=== PATIENT | female | born 1995 | race Caucasian/White ===

== ENCOUNTER 2022-04-18 00:48 | Day surgery (SDC) | payer BC, SELFPAY ==
[2022-04-11 14:40] VITALS: BMI 39.1
--- NOTE | 2022-04-11 14:49 | PC.NURSE ---
Report to the Outpatient Waiting Room, entrance under the green pavilion located off [facility], at time 1000 on date 04/18/22. OR Time: 1200. Time changes happen often and if your time is changed the preop area will call you the afternoon before. - You and your visitor will be asked to self-screen and do not enter if you have any COVID symptoms. - Only one visitor and NO children visitors are allowed at this time. - The patient visitor is requested to leave or wait in car when not with patient due to restrictions. - A mask is required within the hospital. Patients may have clear liquids (water, carbonated beverages, clear teas, apple juice) until 3 hours prior to surgery with a maximum of 20 ounces. - No food from midnight until time of surgery Take the following medications with a SIP of water the morning of surgery: N/A Medications to discontinue per physician: N/A Date to take last dose: N/A Please no make-up, nail arabic, hairspray, perfume, deodorant, or body powder the day of surgery. No jewelry (including any body piercings) or valuables the day of surgery, leave them at home. Please take a shower or bath the night before, or the morning of, surgery with an antibacterial soap. Wear comfortable, loose fitting clothing. - Jewelry must be removed prior to entering the operating room. Rings and piercings that are not removed may be cut off. - The hospital will not accept responsibility for valuables. - Please leave all valuables, including medications, at home the day of surgery. If you are going home after surgery, a licensed combine driver must drive you home. - NO public transportation without another adult. - We recommend that an adult stay with you for 24 hours following discharge. - We also recommend that you do not drive, make important decision, drink alcoholic beverages, or take any drugs that were not prescribed by your health care provider for at least 24 hours after your discharge time. Follow any additional instructions given to you from your surgeon. If you or anyone in your household have experienced Covid symptoms in the past week, please notify your surgeon or the nurse liaison at the phone number below for possible testing. Telephone instructions given to JAVIER ROSAS and asked if any additional questions and then verbalized understanding. Patient advised to call surgeon office or pre surgery nurse liaison [phone] if any additional questions.
--- NOTE | 2022-04-17 20:11 | PM.IMHP ---
H&P: HPI History of Present Illness Date/Time: 04/17/22 20:11 Chief Complaint: desires sterlization Narrative: Valerie is a 27yo G0, who presents for scheduled surgery for sterilization. She has a normal pap smear 02/2020. She has a Paragard IUD in place and was having AUB; TSH was elevated and her levothyroxine was increased to 100mcg daily and the AUB resolved. But she is tired of having the IUD and reports that the IUD overall has made her cycles heavier and more painful. She has never wanted children and reports she has been asking for a tubal since she was 19yo; would like to proceed with IUD removal and laparoscopic salpingectomy; understands it is permanent (her also does not want children). Review of Systems Review of Systems: All systems reviewed & are unremarkable except as noted in HPI and below (HPI) [facility] Past Medical History Medical History Thyroid disease Social History Social History Smoking status: Never smoker Alcohol intake: current Alcohol use details: SOCIAL - 2/MONTH Substance use: never Substance use type: does not use Gender identity (if verbalized by the patient): Female Sexual Orientation (if Verbalized by the Patient): Straight or Heterosexual Spiritual care concerns: No Meds Home Medications and Allergies Home Medications Medication Instructions Recorded Confirmed Type levothyroxine 100 mcg capsule 100 mcg PO DAILY 02/25/22 04/11/22 History Allergies Allergy/AdvReac Type Severity Reaction Status Date / Time amoxicillin Allergy Hives Verified 04/11/22 14:39 azithromycin Allergy Hives Verified 04/11/22 14:39 clindamycin Allergy Hives Verified 04/11/22 14:39 Exam Const: General: cooperative, comfortable and no acute distress Nutritional Appearance: obese Resp: Effort & Inspection: normal respiratory effort Cardio: Rate: regular rate GI: Inspection: normal to inspection GI Palp: No abdominal tenderness and Yes Soft to palpation : Other: deferred to OR Skin: General skin exam: normal color Neuro: General: patient oriented x3 Psych: Appearance: grossly normal Affect: normal affect Attitude: cooperative Assessment and Plan Assessment and plan (1) Encounter for sterilization: Code(s): Z30.2 - Encounter for sterilization Status: Acute (2) IUD (intrauterine device) in place: Code(s): Z97.5 - Presence of (intrauterine) contraceptive device Status: Acute Plan - All control options discussed in detail and also discussed risks/benefits of sterilization and pt states understanding and understands that this is permanent sterilization; only way to conceive would be through IVF (which is very expensive). - Proceed with laparoscopic bilateral salpingectomy and IUD removal - Risks and benefits of surgery have been discussed
[2022-04-18] VITALS (9 sets, daily range): BP systolic 87–121; BP diastolic 48–71; PULSE 55–77; RESP 15–20; TEMP 36.6–36.7; O2SAT 97–100
--- NOTE | 2022-04-18 07:03 | WPDHPUPDATE1 ---
History and Physical Update Update Date/Time: 04/18/22 07:03 History and Physical has been reviewed, including an updated exam of the patient. There are NO changes in the patient's condition. Risks, benefits, and alternatives have been discussed and questions answered. Patient agrees to proceed with procedure.
[2022-04-18] MEDS: ACETAMINOPHEN 500 MG TABLET 1000 MG PO (10:16)
[2022-04-18] MEDS: KETOROLAC 15 MG/ML VIAL (*BKC) IV PUSH (10:19)
[2022-04-18] MEDS: LACTATED RINGERS 1,000 ML 30 ML IV CONT ×2 (10:28→13:54)
--- NOTE | 2022-04-18 10:44 | WPDANESEPPF ---
Anes - Initial Pre Proc Eval Procedure: Operation Date: 04/18/22 12:00 Proposed Procedures p Bilateral Laparoscopic Salpingectomy - Shasta Stone MD Date/Time: 04/18/22 10:44 Surgeon: Shasta Stone MD Pre Op Diagnosis: Desire Sterilization Patient Data Age: 27 Gender: F Height: 1.57 m Weight: 96 kg Last Vital Signs Temp 36.6 C 04/18/22 10:33 Pulse 65 04/18/22 10:33 Resp 16 04/18/22 10:33 BP 121/58 L 04/18/22 10:33 Pulse Ox 100 04/18/22 10:33 O2 Del Method Room Air 04/18/22 10:33 Allergies Allergy/AdvReac Type Severity Reaction Status Date / Time amoxicillin Allergy Hives Verified 04/18/22 10:32 azithromycin Allergy Hives Verified 04/18/22 10:32 clindamycin Allergy Hives Verified 04/18/22 10:32 Home Medications Medication Instructions Recorded Confirmed Type levothyroxine 100 mcg capsule 100 mcg PO DAILY 02/25/22 04/18/22 History Patient hx anesthesia problems: none Family hx anesthesia problems: none Results Review: All pre-operative results and documents have been reviewed as part of the pre-operative evaluation. [facility] Past Medical History Medical History Hypothyroid Thyroid disease Social History Social History Smoking status: Never smoker Alcohol intake: current Alcohol use details: SOCIAL - 2/MONTH Substance use: never Substance use type: does not use Living arrangements: with family Gender identity (if verbalized by the patient): Female Sexual Orientation (if Verbalized by the Patient): Straight or Heterosexual Spiritual care concerns: No Anes - Eval Final PreProcedure Day of Procedure 04/18/22 10:44 Patient weight: obese Heart: regular rate and rhythm Lungs: decreased breath sounds Airway: Mallampati scale class II (upper veneers) Neurological: alert and oriented Last oral intake: >/= 8 hours ASA classification: II Emergent: no Anesthetic plan: proceed Anesthesia type and monitoring: general ETT and standard monitoring Results Review: All pre-operative results and documents have been reviewed as part of the pre-operative evaluation. Informed Consent: The patient's anesthetic plan and its attendant risks and benefits were discussed with the patient/family/POA. Questions were solicited and answers provided to the satisfaction of the patient/family/POA.
[2022-04-18] MEDS: BUPIVACAINE/EPINEPHRINE 0.25% 50 ML VIAL 30 ML INFILTRATE (13:18)
--- NOTE | 2022-04-18 13:52 | W.PM.PROC2 ---
Procedure Note - Detailed Date of Procedure 04/18/22 Pre-op Diagnosis Desire Sterilization IUD removal Post-op Diagnosis Same Procedure Performed Bilateral laparoscopic salpingectomy and IUD removal Surgeon Shasta Stone MD [employer] Desirae Findings IUD in situ; short strings, removed without issue and discarded. Uterus sounded to 7cm. On entry into the abdomen; ~50cc of old hemoperitoneum noted (dark blood that was coagulated). No source of bleeding was identified but no active bleeding was noted. Normal uterus and bilateral fallopian tubes and ovaries. Bilateral salpingectomy performed w/o issue; good hemostasis at end of case. Normal appearing appendix, liver, falciform ligament visualized. Description of Procedure Valerie was taken to the operating room where she was placed under general endotracheal anesthesia without complications. She was then prepped and draped in the usual sterile fashion in the dorsal lithotomy position with her legs in low Monroe stirrups and her arms tucked at her side with a strap over her chest. A time-out was performed and no preoperative antibiotics were indicated. My attention was turned down below where her bladder was drained via straight catheterization. A bivalve speculum was then placed within the vagina where the cervix was easily identified. The Paragard strings were short but grasped with a ring forceps and the IUD was removed without issue. The anterior lip of the cervix was grasped with a single-tooth tenaculum, the uterus was sounded, the cervix was serially dilated, and a diagnostic uterine manipulator was placed without complications. My gloves were changed and my attention was turned to her abdomen. An umbilical incision was made, and a 5 mm trocar was placed under direct visualization without complications. Once intra-abdominal placement was confirmed the abdomen was insufflated with carbon dioxide gas. She was then placed in Trendelenburg and two additional 5 mm ports were placed in the left and right lower quadrants under direct visualization without complications. The above findings were noted. The left fallopian tube was then elevated and the mesosalpinx was serially clamped, coagulated, transected using the LigaSure device until the proximal end of the fallopian tube was reached. The proximal end of the fallopian tube was cross clamped, coagulated and transected. The tube was then removed from the abdomen. The same procedure was then performed on the right side without any complications. Good hemostasis was noted. The pelvis was irrigated and the blood/clots/fluid was suctioned out. An abdominal survey was performed and no active bleeding was noted. The easily accessible blood in the upper abdomen was also suctioned out. All instruments were removed from the abdomen. The insufflation was released and the trocars were removed. The 3 laparoscopic incision sites were reapproximated using 4-0 Monocryl and covered with Dermabond. The incisions were then infiltrated using 0.25% Marcaine (26cc were used in total). The uterine manipulator was removed. Sponge, lap, instrument, and needle counts were correct at the end of the procedure. Patient was awoken from general anesthesia and taken to recovery with plans of same-day discharge home. Estimated Blood Loss 5 IV Fluids 1,000 Urine Output 20 Pathology Yes (bilateral fallopian tubes sent separately) Complications No immediate complications Condition Stable Disposition Same day [facility] Billing Surgery - Charge Forward: Surgery Billing
[2022-04-18] MEDS: fentaNYL CITRATE INJ (*CRX) 100 MCG/2 ML VIAL 25 MCG IV PUSH ×2 (14:30→14:41)
== END 2022-04-18 16:00 | disposition home or self-care (01) ==
PROVIDERS: Visit Provider Obstetrics & Gynecology
PROC: (CPT 49320; principal; 2022-04-18 12:00)
DX: Z30.2 Encounter for sterilization (principal); Z30.432 Encounter for removal of intrauterine contraceptive device; E03.9 Hypothyroidism, unspecified; E66.9 Obesity, unspecified; Z68.38 Body mass index [BMI] 38.0-38.9, adult
CPT/HCPCS: 58661; 58301; 88302; A9270; J1100; J1885; J2250; J2405; J2704; J3010; J7120

== ENCOUNTER 2024-07-10 19:58 | Emergency (ER) | payer OTHER, SELFPAY ==
--- NOTE | ~2024-07-10 | XR_ITS ---
EXAMINATION: XR abdomen obstructive series DATE: 07/10/2024 21:31 INDICATION: Nausea, vomiting, and diarrhea. TECHNIQUE: Upright and supine views of the abdomen on 3 radiographs were obtained. COMPARISON: None. FINDINGS: There is no pneumonia, pleural effusion, or pneumothorax. The heart size is normal. IMPRESSION: 1. Nonobstructive bowel gas pattern. Reviewed, dictated and finalized at location A. [facility] [employer]
[2024-07-10 20:01] VITALS: BP 134/87; PULSE 105; RESP 18; TEMP 36.6; O2SAT 98
--- NOTE | 2024-07-10 20:06 | ED_ITS ---
HPI - General Adult General Chief complaint: Nausea/Vomiting/Diarrhea Stated complaint: n/v/d Time Seen by Provider: 07/10/24 20:06 Source: patient Mode of arrival: ambulatory Limitations: no limitations History of Present Illness HPI narrative: 29-year-old white female ate [place] restaurant wanted p.m. then started having nausea vomiting and diarrhea. Related Data Home Medications ?Medication ?Instructions ?Recorded ?Confirmed ?Last Taken ?Type levothyroxine 125 mcg tablet 125 mcg PO .qd 03/17/23 07/10/24 Unknown History Allergies Allergy/AdvReac Type Severity Reaction Status Date / Time amoxicillin Allergy Hives Verified 07/10/24 20:04 azithromycin Allergy Hives Verified 07/10/24 20:04 clindamycin Allergy Hives Verified 07/10/24 20:04 [facility] Past Medical History Medical History Hypothyroid IUD (intrauterine device) in place Thyroid disease Surgical History Surgical History (Updated 03/17/23 @ 09:47 by Mary Jo Sanabria MA) S/P laparoscopic surgery (~04/2022) Tubal ligation and iud removal Social History Social History (Updated 03/17/23 @ 09:48 by Mary Jo Sanabria MA) Smoking status: Never smoker Alcohol intake: never Substance use: never Substance use type: does not use Current Housing: Decline to Answer Concerned About Future Housing: Decline to Answer Difficulty Paying Gas/Electric Bills: Decline to Answer Difficulty Paying for Meds: Decline to Answer Currently Unemployed: Decline to Answer Education: Decline to Answer Living arrangements: with family Occupation/Education: occupation Additional occupation/education comments: [employer] Gender identity (if verbalized by the patient): Female Sexual Orientation (if Verbalized by the Patient): Straight or Heterosexual Spiritual care concerns: No Course Vital Signs Vital signs: Vital Signs Temperature 36.6 C 07/10/24 20:01 Pulse Rate 105 H 07/10/24 20:01 Respiratory Rate 18 07/10/24 20:01 Blood Pressure 134/87 07/10/24 20:01 Pulse Oximetry 98 07/10/24 20:01 Oxygen Delivery Room Air 07/10/24 20:01 Temperature 36.6 C 07/10/24 20:01 Pulse Rate 105 H 07/10/24 20:01 Respiratory Rate 18 07/10/24 20:01 Blood Pressure 134/87 07/10/24 20:01 Pulse Oximetry 98 07/10/24 20:01 Oxygen Delivery Room Air 07/10/24 20:01 Medical Decision Making MDM Narrative Medical decision making narrative: ?Patient placed in room: ? History and physical was performed. Independent Historian: External Source Review: Differential Dx includes but not limited to: Medications were Reviewed: Medications given: Independently Interpreted by me: Shared decision Making: Social Situation Impacting Patients Care: Discussed with Dr. BAUTISTA DIAGNOSIS: DISPOSITION : CONDITION AT DISCHARGE: Vital Signs Vital Signs: Vital Signs Temperature 36.6 C 07/10/24 20:01 Pulse Rate 105 H 07/10/24 20:01 Respiratory Rate 18 07/10/24 20:01 Blood Pressure 134/87 07/10/24 20:01 Pulse Oximetry 98 07/10/24 20:01 Oxygen Delivery Room Air 07/10/24 20:01 Temperature 36.6 C 07/10/24 20:01 Pulse Rate 105 H 07/10/24 20:01 Respiratory Rate 18 07/10/24 20:01 Blood Pressure 134/87 07/10/24 20:01 Pulse Oximetry 98 07/10/24 20:01 Oxygen Delivery Room Air 07/10/24 20:01 Discharge Plan Discharge Patient Language: Icelandic Prescriptions: No Action levothyroxine 125 mcg tablet 125 mcg PO .qd Follow-up/Referrals: UNKNOWN,DOCTOR [Primary Care Provider] -
[2024-07-10] MEDS: ONDANSETRON INJ 4 MG/2 ML VIAL IV PUSH ×2 (20:27→22:50)
[2024-07-10] MEDS: SODIUM CHLORIDE 0.9% IV 1,000 ML 999 ML IV CONT ×2 (20:28→21:29)
[2024-07-10 20:33] LABS: Hematocrit 42.6 % (35.0-49.0); Hemoglobin 14.6 g/dL (12.0-15.0); Mean Corpuscular HGB Conc 34.3 g/dL (32-36); Mean Corpuscular Hemoglobin 30.5 pg (27.0-31.0); Mean Corpuscular Volume 89.1 fL (78.0-102.0); Mean Platelet Volume 9.6 fl (9.2-11.8); Platelet Count Result 349 K/mm3 (150-420); Red Blood Count 4.78 M/mm3 (4.20-5.40); Red Cell Distribution Width 12.7 % (11.6-14.4); White Blood Count 14.7 K/mm3 (4.8-10.8)
[2024-07-10 20:49] LABS: Alanine Aminotransferase 23 U/L (14-59); Albumin Level 3.9 g/dL (3.4-5.0); Alkaline Phosphatase 99 U/L (46-116); Anion Gap 11 mmol/L (4-12); Aspartate Amino Transferase 15 U/L (15-37); Bilirubin,Total 0.5 mg/dL (0.00-1.00); Blood Urea Nitrogen 8 mg/dL (7-18); Calcium 8.9 mg/dL (8.5-10.1); Carbon Dioxide 26 mmol/L (21-32); Chloride 105 mmol/L (98-108); Estimated CRCL calculation 118 ml/min; Estimated Glomerular Filt Rate > 60; Glucose 105 mg/dL (70-99); Lipase 19 U/L (16-77); Magnesium 1.9 mg/dL (1.8-2.4); Osmolality Calculated 292 mOsm/kg (285-295); Potassium 3.9 mmol/L (3.5-5.1); Sodium 142 mmol/L (136-145); Total Protein 8.2 g/dL (6.4-8.2)
[2024-07-10 20:52] LABS: Lactic Acid Reflex 1.3 mmol/L (0.4-2.0); SPREG INTERNAL CONTROL Positive; Serum Qual hCG Negative
[2024-07-10 22:32] LABS: Toxigenic C. Diff NEGATIVE (NEGATIVE)
--- NOTE | 2024-07-10 22:32 | ED.GENADULT ---
HPI - General Adult General Chief complaint: Nausea/Vomiting/Diarrhea Stated complaint: n/v/d Time Seen by Provider: 07/10/24 20:06 Source: patient Mode of arrival: ambulatory Limitations: no limitations History of Present Illness HPI narrative: patient is a 29-year-old white female ate [place] food around 1:00 p.m. started vomiting a few hours later. Vomited 8 or 9 times and had about 9 or 10 loose watery nonbloody stools. Associated with some abdominal cramping. Denies any cough fever sore throat runny nose chest pain back pain problems voiding walking talking seeing or hearing swelling lumps or bumps bleeding or bruising rash or itching or any other complaints. Last menstrual period was normal as was the 1 previous that. Related Data Home Medications ?Medication ?Instructions ?Recorded ?Confirmed ?Last Taken ?Type levothyroxine 125 mcg tablet 125 mcg PO .qd 03/17/23 07/10/24 Unknown History Allergies Allergy/AdvReac Type Severity Reaction Status Date / Time amoxicillin Allergy Hives Verified 07/10/24 20:04 azithromycin Allergy Hives Verified 07/10/24 20:04 clindamycin Allergy Hives Verified 07/10/24 20:04 Review of Systems Review of Systems: All systems reviewed & are unremarkable except as noted in HPI and below PMFSH Past Medical History Medical History Hypothyroid IUD (intrauterine device) in place Thyroid disease Surgical History Surgical History S/P laparoscopic surgery (~04/2022) Tubal ligation and iud removal Social History Social History Smoking status: Never smoker Alcohol intake: never Substance use: never Substance use type: does not use Current Housing: Decline to Answer Concerned About Future Housing: Decline to Answer Difficulty Paying Gas/Electric Bills: Decline to Answer Difficulty Paying for Meds: Decline to Answer Currently Unemployed: Decline to Answer Education: Decline to Answer Living arrangements: with family 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 Head normocephalic, atraumatic.? Eyes conjunctiva pink sclera nonicteric.? Extraocular movements are intact.? Ears externally normal.? Oropharynx is clear with moist mucous membranes without exudates.? Neck is supple nontender no lymphadenopathy.? Back is nontender.? Lungs are clear.? Heart is regular rate and rhythm without murmurs gallops or rubs.? Chest wall nontender. Abdomen is soft and nontender no hepatosplenomegaly or masses no CVA tenderness no abdominal bruits.? Extremities no cyanosis clubbing or edema.? Skin is warm and dry without rashes or lesions.? Neurological patient is alert and oriented x4.? Motor and sensory grossly intact.? Gait is normal. Course Vital Signs Vital signs: Vital Signs Temperature 36.6 C 07/10/24 20:01 Pulse Rate 105 H 07/10/24 20:01 Respiratory Rate 18 07/10/24 20:01 Blood Pressure 134/87 07/10/24 20:01 Pulse Oximetry 98 07/10/24 20:01 Oxygen Delivery Room Air 07/10/24 20:01 Temperature 37.6 C 07/10/24 22:50 Pulse Rate 103 H 07/10/24 22:50 Respiratory Rate 18 07/10/24 22:50 Blood Pressure 126/75 07/10/24 22:50 Pulse Oximetry 99 07/10/24 22:50 Oxygen Delivery Room Air 07/10/24 22:50 Medical Decision Making [facility] Narrative Medical decision making narrative: ?Patient placed in room: to ? History and physical was performed. Normal CMP lactic acid lipase magnesium test. WBCs 14.7 rest of CBC was normal. C diff toxin was negative. Obstructive series nonobstructed bowel gas pattern per radiologist Independent Historian: External Source Review: Differential Dx includes but not limited to: bowel obstruction GERD food poisoning clustered in difficile Medications were Reviewed: home meds reviewed Medications given: Zofran 4 mg IV x2 normal saline bolus 1 L x2 patient felt better after this. Patient only had 1 bowel movement says in the emergency department. Independently Interpreted by me: Labs independently interpreted by me. Obstructive series was negative as independently interpreted by me. Shared decision Making: Evaluation was discussed all questions were asked and answered patient agreed with the plan. Social Situation Impacting Patients Care: Discussed with Dr. BAUTISTA DIAGNOSIS: Nausea vomiting diarrhea DISPOSITION : discharge home CONDITION AT DISCHARGE: stable Vital Signs Vital Signs: Vital Signs Temperature 36.6 C 07/10/24 20:01 Pulse Rate 105 H 07/10/24 20:01 Respiratory Rate 18 07/10/24 20:01 Blood Pressure 134/87 07/10/24 20:01 Pulse Oximetry 98 07/10/24 20:01 Oxygen Delivery Room Air 07/10/24 20:01 Temperature 37.6 C 07/10/24 22:50 Pulse Rate 103 H 07/10/24 22:50 Respiratory Rate 18 07/10/24 22:50 Blood Pressure 126/75 07/10/24 22:50 Pulse Oximetry 99 07/10/24 22:50 Oxygen Delivery Room Air 07/10/24 22:50 Lab Data 07/10/24 20:29 07/10/24 20:29 Labs: Lab Results 07/10/24 07/10/24 Range/Units 20:29 21:43 WBC 14.7 H (4.8-10.8) K/mm3 RBC 4.78 (4.20-5.40) M/mm3 Hgb 14.6 (12.0-15.0) g/dL Hct 42.6 (35.0-49.0) % MCV 89.1 (78.0-102.0) fL MCH 30.5 (27.0-31.0) pg MCHC 34.3 (32-36) g/dL RDW 12.7 (11.6-14.4) % Plt Count 349 (150-420) K/mm3 MPV 9.6 (9.2-11.8) fl Sodium 142 (136-145) mmol/L Potassium 3.9 (3.5-5.1) mmol/L Chloride 105 (98-108) mmol/L Carbon Dioxide 26 (21-32) mmol/L Anion Gap 11 (4-12) mmol/L BUN 8 (7-18) mg/dL Creatinine 0.70 (0.55-1.02) mg/dL Estim Creat Clear Calc 118 ml/min Estimated GFR > 60 (59 - ) Glucose 105 H (70-99) mg/dL Calculated Osmolality 292 (285-295) mOsm/kg Lactic Acid 1.3 (0.4-2.0) mmol/L Calcium 8.9 (8.5-10.1) mg/dL Magnesium 1.9 (1.8-2.4) mg/dL Total Bilirubin 0.5 (0.00-1.00) mg/dL AST 15 (15-37) U/L ALT 23 (14-59) U/L Alkaline Phosphatase 99 (46-116) U/L Total Protein 8.2 (6.4-8.2) g/dL Albumin 3.9 (3.4-5.0) g/dL Lipase 19 (16-77) U/L Serum HCG, Qual Negative C. difficile (PCR) Negative (NEGATIVE) Discharge Plan Discharge Clinical Impression: Nausea vomiting and diarrhea, Volume depletion Patient Disposition: Home, Self-Care Condition: Stable Instructions: Acute Nausea and Vomiting (DC), Acute Diarrhea (ED) Additional Instructions: Zofran 4 mg oral dissolving tablet every 4 hours as needed for nausea vomiting. Imodium [id number] had more than 4 per day as needed for diarrhea. Return if you get worse or develops any new symptoms. Increase her fluids by mouth slowly advance her diet as tolerated. Patient Language: Beninese Prescriptions: New ondansetron HCl 4 mg tablet 4 mg PO Q4H PRN (Reason: nausea and vomiting) 5 Days Qty: 12 0RF Rx Instructions: give 1st dose 30min before emetogenic chemo No Action levothyroxine 125 mcg tablet 125 mcg PO .qd Follow-up/Referrals: UNKNOWN,DOCTOR [Primary Care Provider] - Time of Disposition: 22:57
[2024-07-10 22:50] VITALS: BP 126/75; PULSE 103; RESP 18; TEMP 37.6; O2SAT 99
--- OUTSIDE RECORDS SUMMARY | 2024-07-18 00:05 | XMS_ITS | Referral Summary ---
Author Organization [facility] Address [address] [facility] [address] [place] [address] Phone Care Team Providers Care Security Shift Supervisor Name Role Phone Zoe Garcia MD Primary Care Provider Eliu Yu MD Unavailable [phone] Shasta Stone MD Unavailable [phone] Encounters Date Type Department Care Team Description 07/16/2024 Telephone [facility] Medical [facility] Primary Care at [address] [phone] Zoe Garcia MD [facility] 04/29/2024 Telephone [facility] Medical [facility] Primary Care at [address] [address] Zoe Garcia MD 04/29/2024 Telephone [facility] Imaging at [address] [phone] Mick Cason CNA from Last 3 Months Allergies Active Allergy Reactions Criticality Noted Date Comments Amoxicillin Hives Medium 08/03/2020 Clindamycin Hives,Itching,Rash Medium 09/28/2021 Penicillins Hives Medium 08/03/2020 Azithromycin Rash Medium 01/30/2020 Medications levothyroxine (SYNTHROID) 125 mcg tabletIndications :Acquired hypothyroidism Take 1 tablet (125 mcg total) by mouth daily before breakfast 90 tablet 1 07/16/20 Active levothyroxine (SYNTHROID) 125 mcg tabletIndications :Acquired hypothyroidism Take 1 tablet (125 mcg total) by mouth daily before breakfast 90 tablet 3 03/08/20 24 2023 Discontinued(R eorder) levothyroxine (SYNTHROID) 125 mcg tabletIndications :Acquired hypothyroidism Take 1 tablet (125 mcg total) by mouth early childhood services coordinator before breakfast 90 tablet 3 03/14/20 24 2023 Discontinued Active Problems Problem Noted Date Diagnosed Date Class 3 severe obesity due t o excess calories without serious comorbidity with body mass index (BMI) of 40.0 to 44.9 in adult 03/07/2024 Assessment & Plan (03/07/2024 3:48 PM CDT): Chronic obesity, BMI significantly worse since last visit. Encouraged healthy diet, exercise and weight loss efforts. Patient reports work she is not able to exercise and does not always watch what she eats Liver hemangioma 05/01/2023 Overview (03/07/2024): Likely small cyst vs hemangioma Assessment & Plan (03/07/2024 3:47 PM CDT): Patient had likely small liver hemangioma versus cyst. This is low risk. Patient has been significantly concerned about it in the past so was offered option for yearly MRI to monitor when she saw GI. Due to cost, patient is now deferring yearly follow-up. We can reconsider in a couple years if she desires Assessment & Plan (05/01/2023 6:03 PM CDT): Incidental finding with the CT urogram, 2 mm size. Followed by MRI stool considering the small size possibly small hemangioma or cyst. Patient was reassured about the benign nature of this finding. Patient refused to get CT with contrast for fear of reaction. I advised the patient to follow up in 1 year to plan MRI of the liver for follow-up evaluation. Other microscopic hematuria 05/20/2022 Overview (03/14/2024): Noted on DOT exam. CT urogram done. Patient did not tolerate cystoscopy when Urology try to do it as an office based procedure. Per Urology she is to have a urinalysis done at least yearly and if we see an increasing number of red blood cells per high-power field then she is to follow up with them for further evaluation Assessment & Plan (03/07/2024 3:47 PM CDT): No gross hematuria. Had urology evaluation. We need records. CT urogram without cause. Patient reports urology workup was otherwise negative. We should monitor urine yearly. Patient does have history of significant secondhand smoke exposure growing up Acquired hypothyroidism 01/30/2020 Assessment & Plan (03/07/2024 3:46 PM CDT): Chronic. Relatively euthyroid. Check TSH and adjust levothyroxine as needed. Patient denies any recent missed dose Assessment & Plan (12/09/2021 10:47 AM CDT): - chronic, stable - diagnosed around age 17 - currently on Levothyroxine 100 mcg - most recent TSH as shown below - continue with current therapy Lab Results Component Value Date TSH 3.03 09/24/2021 Assessment & Plan (09/24/2021 10:34 PM BOLT LOADER): - chronic, stable - diagnosed around age 17 - currently on Levothyroxine 100 mcg - most recent TSH as shown below - continue with current therapy Lab Results Component Value Date TSH 3.03 09/24/2021 Assessment & Plan (05/27/2021 8:22 AM BOLT LOADER): - chronic,s table - diagnosed around age 17 - currently on Levothyroxine 100 mcg - most recent TSH as shown below - continue with current therapy Lab Results Component Value Date TSH 3.71 02/19/2021 - will check TSH with free T4 reflex on next visit Assessment & Plan (02/19/2021 8:44 AM CDT): - diagnose around age 17 - currently on Levothyroxine 100 mcg - most recent TSH Lab Results Component Value Date TSH 4.19 04/23/2020 - will check TSH with free T4 reflex Iron deficiency anemia due to chronic blood loss 01/30/2020 Assessment & Plan (03/07/2024 3:46 PM CDT): History. Denies recent heavy periods. Check CBC. Monitor Assessment & Plan (09/24/2021 10:35 PM BOLT LOADER): - chronic, stable - has a hx of iron def anemia - taking iron tablet 324 mg once daily - most recent CBC + Iron studies - continue with current therapy Lab Results Component Value Date HGB 13.7 09/24/2021 Lab Results Component Value Date IRON 85 09/24/2021 TIBC 285 09/24/2021 FERRITIN 95 09/24/2021 Assessment & Plan (05/27/2021 8:22 AM BOLT LOADER): - chronic, stable - has a hx of iron def anemia - taking iron tablet 324 mg once daily - most recent CBC + Iron studies - continue with current therapy Lab Results Component Value Date HGB 14.1 02/19/2021 Lab Results Component Value Date IRON 110 02/19/2021 TIBC 272 02/19/2021 FERRITIN 92 02/19/2021 Assessment & Plan (02/19/2021 8:47 AM CDT): - used to have iron def anemia - taking iron tablet 324 mg once daily - has not had iron studies or CBC in some time - will check CBC + Iron studies Resolved Problems Problem Noted Date Diagnosed Date Resolved Date Encounter to establish care with new doctor 02/12/2022 09/30/2022 Assessment & Plan (02/12/2022 9:56 PM CDT): A(n) initial well visit to establish care has been performed today. Valerie Real is not up to date on screening tests. She is in need of Cervical cancer screening. She is up to date on needed preventative vaccinations BP is in good shape As labs were last drawn in September, and were good, will recheck things for next visit in July Continuing current dosing on thyroid med Will leave iron supplement going as desired. Anemia has been resolved, and iron panel was in range. Patient was rude and uncooperative with medical laboratory manager on intake, and during our visit, she was uncooperative and again rude. For example, when I asked about her spouse's name for the chart, she was irritated and interrogated me as to why I wanted his name (I explained that we needed name and contact for emergency purposes, as it was not on file, emphasizing that we would not be sharing the information in her chart without her permission). She was also seemingly offended when I asked about her IUD (copper). She accused me of wanting to stop her iron supplement. It was noted by staff that she had complained of not being able to find a doctor she liked. After visit, I had report that she was upset, and stated that she didn't want to see me again. Given that, and that I don't think we can have a productive doctor- patient relationship, I think that is for the best. IUD (intrauterine device) in place 02/19/2021 03/07/2024 Assessment & Plan (02/19/2021 8:58 AM CDT): - Copper IUD placed in 2018 - she still has intermittent bleeding Annual visit for general vipul lt medical examination with abnormal findings 02/19/202103/07 Assessment & Plan (02/19/2021 9:15 AM CDT): - Acute concerns: discussed and addressed - Mental health: discussed and addressed - Dental health: has Dental veneers - Nutrition: Stressed importance of moderation in sodium/caffeine intake, saturated fat and cholesterol, caloric balance, sufficient intake of fresh fruits, vegetables - Exercise: Stressed the importance of regular exercise, goal would be Anxiety and depression 01/30/202003/07 Assessment & Plan (12/09/2021 10:47 AM CDT): stgable- would continue to recommend counselling Assessment & Plan (05/27/2021 8:20 AM BOLT LOADER): - chronic, stable - reports hx of past trauma - she has tried one medication or anxiety which she felt it did not help, she does not desire to be on medication - she is open to see a counselor - but she does not have the money to do it at this time - recommend coping mechanism Assessment & Plan (02/19/2021 8:57 AM CDT): - chronic condition - reports hx of past trauma - she has tried one medication or anxiety which she felt it did not help - she does not desire to be on medication - she is open to see a counselor - but she does not have the money to do it Menorrhagia with regular cycle 01/30/2020 03/07/2024 Assessment & Plan (05/27/2021 1:59 PM BOLT LOADER): - used to have heavy menstrual cycles - has copper IUD in place as well - once a month, about 7 days - follows with OBGYN - desires sterilization - such as hysterectomy or ablation but not going to do it due to cost reason as she does not have medical insurance Assessment & Plan (02/19/2021 8:58 AM CDT): - used to have heavy menstrual cycles - has copper IUD in place as well - once a month, about 7 days Class 2 obesity due to exces s calories without serious comorbidity with body mass index (BMI) of 39.0 to 39.9 in adult 01/30/2020 Assessment & Plan (12/09/2021 10:46 AM CDT): Wt Readings from Last 3 Encounters: 12/09/21 99 kg (218 lb 3.2 oz) 09/28/21 99.3 kg (219 lb) 09/24/21 99.3 kg (219 lb) Body mass index is 39.9 kg/m??. - chronic, not at goal - BMI Follow-up includes: managing nutrition/diet and physical exercise Assessment & Plan (09/24/2021 10:35 PM BOLT LOADER): Wt Readings from Last 3 Encounters: 09/24/21 99.3 kg (219 lb) 05/27/21 100.4 kg (221 lb 6.4 oz) 02/19/21 100 kg (220 lb 8 oz) Body mass index is 40.05 kg/m??. - chronic, not at goal - BMI Follow-up includes: managing nutrition/diet and physical exercise Assessment & Plan (05/27/2021 8:21 AM BOLT LOADER): Wt Readings from Last 3 Encounters: 05/27/21 100.4 kg (221 lb 6.4 oz) 02/19/21 100 kg (220 lb 8 oz) 08/03/20 97.8 kg (215 lb 8 oz) Body mass index is 40.48 kg/m??. - chronic, not at goal - trying to lose weight, has a gym membership but limited with work, trying to eat more healthier - BMI Follow-up includes: nutrition counseling, exercise counseling and education provided Assessment & Plan (02/19/2021 8:45 AM CDT): Wt Readings from Last 3 Encounters: 02/19/21 100 kg (220 lb 8 oz) 08/03/20 97.8 kg (215 lb 8 oz) 02/20/20 94.1 kg (207 lb 6.4 oz) Body mass index is 40.33 kg/m??. - trying to lose weight, has a gym membership - trying to eat more healthier - BMI Follow-up includes: nutrition counseling, exercise counseling and education provided - Recommended to get a pedometer and set a goal of 10,000 steps per day. Assessment & Plan (01/30/2020 1:46 PM CDT): BMI 37.5. Discussed with pt low fat low na+ diet and increasing physical activity with a goal of 20 -30 min of aerobic exercise 3-4 days per week. Pt encouraged to lose 1-2 lbs weekly. Verbalized understanding. Immunizations Name Administration Dates Next Due Influenza, Unspecified 07/17/2022(Deferr ed: Patient Refused),04/16/2021(Deferred: Patient Refused),08/03/2020(Deferred: Patient decision - do not believe in.),04/16/2020(Deferred: Patient Refused),04/16/2020(Deferred: Patient Refused),04/16/2020(Deferred: Patient Refused),07/17/2019(Deferred: Patient Refused) Social History Tobacco Use Types Packs/Day Years Used Date Smoking Tobacco: Never Tobacco Cessation:Counseling Given: Not Answered Alcohol Use Standard Drinks/Week Comments Never 0 (1 standard drink = 0.6 oz pur e alcohol) AUDIT-C Answer Date Recorded Q1: How often do you have a drink containing alc ohol? 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 Not on file Not on file Not on file Last Filed Vital Signs Vital Sign Reading Time Taken Comments Blood Pressure 112/62 03/07/2024 3:06 PM CDT Pulse 66 03/07/2024 3:06 PM CDT Temperature 37.1 ??C (98.7 ??F) 03/07/2024 3:06 PM CD T Respiratory Rate 20 03/07/2024 3:06 PM CDT Oxygen Saturation 98% 03/07/2024 3:06 PM CDT Inhaled Oxygen Concentration - - Weight 102.3 kg (225 lb 8 oz) 03/07/2024 3:06 PM CDT Height 157.5 cm (5' 2.01 ) 03/07/2024 3:06 PM CD T Body Mass Index 41.23 03/07/2024 3:06 PM CDT Plan of Treatment Not on file Procedures Procedure Name Priority Date/Time Associated Diagnosis Comments HEPATITIS PANEL, ACUTE Routine 01/09/2023 8:03 AM CDT Hepatic lesion from Last 3 Months or Most Recently Relevant to Health Maintenance Results * Hepatitis panel, acute (01/09/2023 8:03 AM CDT) Hep A IgM Nonreactive Nonreactive LUISA VASQUEZ (REINIER) Comment: Interpretive Data: If Hep A IgM Ab is reported as Equivocal, a new sample should be drawn in two weeks for testing. Current interpretive data was last revised on 19. Testing performed by: [facility], [address] [place] [address]., [id number] Hep B core IgM Nonreactive Nonreactive Alexus VASQUEZ (REINIER) Comment: Interpretive Data If HepB Core IgM Ab is reported as Equivocal, a new sample should be drawn in two weeks for testing. Current interpretive data was last revised on 19. Testing performed by: [facility], [address] [place] [address]., [id number] Hep C Ab Nonreactive Nonreactive LUISA VASQUEZ (REINIER) Comment: Interpretive Data Nonreactive: Antibodies to HCV not detected. Does NOT exclude the possibility of recent exposure to HCV. Equivocal: Equivocal for HCV antibodies. Supplemental molecular testing will be automatically performed to determine infection status in accordance with current CDC screening recommendations. ?? Reactive: Positive for HCV antibodies. ??This may represent current or past HCV infection. Supplemental molecular testing will be automatically performed to determine ??current infection status in accordance with current CDC screening recommendations. Interpretive data was last revised on 2019. Testing performed by: [facility], [address] [place] [address]., [id number] HepBsAg Nonreactive Nonreactive LUISA VASQUEZ (REINIER) Comment:Testing performed by : [facility], [address] [place] [address]., [id number] Blood 01/09/2023 8:03 AM CDT 01/09/2023 2:08 PM CDT Jerson Montenegro SUPERVISOR PROCESS TESTING LAB MICROBIOLOGY - GENERAL ORDERABLES Final Result LUISA VASQUEZ (REINIER) [address] [facility] Department of Laboratories [place], [place] [id number] from Last 3 Months or Most Recently Relevant to Health Maintenance Insurance [facility] [employer] HMO/PPO Address: [place] [address] Care Teams Security Shift Supervisor Relationship Specialty Start Date End Date Zoe Garcia MD PCP - General Family Practice 03/22/22 [place] [address] [place] [id number] Consulting Physician Urology 03/07/24 Shasta Stone MD [address] [place] [address] Obstetrics and Gynecology 03/07/24
--- OUTSIDE RECORDS SUMMARY | 2024-07-18 00:05 | XMS_ITS | Encounter Summary ---
Author Organization [facility] Healthcare Address [address] [place] [address] Care Team Providers Care Program Analyst Name Role Phone Shasta Stone MD Unavailable [phone] Zoe Garcia MD Primary Care Provider Reason for Visit * Reason Onset Date Comments Med Refill 01/24/2024 Encounter Details Date Type Department Care Team (Late st Contact Info) Description 01/24/2024 Telephone [facility] Primary Care at [address] [address] Zoe Garcia MD [address] [place] [address] [address] [place] [address] Med Refill Social History Tobacco Use Types Packs/Day Years Used Date Smoking Tobacco: Never Alcohol Use Standard Drinks/Week Comments Never 0 [...] points, staff should administer the PHQ-9) 0 02/10/2022 Personal Safety Answer Date Recorded Getting School Help Needed Not on file 08/25 Comments No Sex and Gender Information Value Date Recorded Sex Assigned at Not on file Legal Sex Female 1:00 PM CDT Gender Identity Female 03/08/2021 4:35 PM CDT Sexual Orientation Straight 03/08/2021 4: 35 PM CDT 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 documented in this encounter Plan of Treatment Not on file documented as of this encounter Visit Diagnoses Diagnosis Acquired hypothyroidism Unspecified hypothyroidism documented in this encounter Discontinued Medications Medication Sig Discontinue Reason Start Date End Da te levothyroxine (SYNTHROID) 125 mcg tabletIndications:Acquire d hypothyroidism Take 1 tablet (125 mcg total) by mouth daily before breakfast Reorder 01/16/2024 01/24/2024 documented as of this encounter Care Teams Program Analyst Relationship Specialty Start Date End Date Zoe Garcia MD PCP - General Family Practice 03/22/22 Shasta Stone MD Obstetrics and Gynecology 02/10/22 8/2 08/09 documented as of this encounter
--- OUTSIDE RECORDS SUMMARY | 2024-07-18 00:05 | XMS_ITS | Encounter Summary ---
Author Organization [facility] Healthcare Address [address] [place] [address] Care Team Providers Care Information Specialist Name Role Phone Zeo Mesa MD Primary Care Provider Eliu Yu MD Unavailable [phone] Shasta Stone MD Unavailable [phone] Reason for Visit * Reason Comments Med Refill Pt is here for a med ication refill appointment. Encounter Details Date Type Department Care Team (Latest Contact Info) Description 03/07/2024 3:30 PM CDT Office Visit [facility] Primary Care at [address] [address] Zoe Mesa MD [address] [place] [address] [address] [place] [address] Routine physical examination (Primary Dx); Acquired hypothyroidism; Other microscopic hematuria; Iron deficiency anemia due to chronic blood loss; Liver hemangioma; Class 3 severe obesity due to excess calories without serious comorbidity with body mass index (BMI) of 40.0 to 44.9 in adult (HCC); Acquired hypothyroidism Social History Tobacco Use Types Packs/Day Years [...] 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 file Not on file Not on file documented as of this encounter Last Filed Vital Signs Vital Sign Reading [...] Mass Index 41.23 03/07/2024 3:06 PM CDT documented in this encounter Patient Instructions * Patient Instructions* Zoe Mesa MD - 03/07/2024 3:30 PM CDT Recommendations For A Healthy Lifestyle Get labs done fasting today Routine Screening: Pap smear every 3 years age 21-65 depending on your history Mammogram every 1 years over age 40 Bone density screening at age 65 Diabetes and Cholesterol screening every 3-5 years (starting at age 35, or optional at younger age)if normal, yearly if abnormal or risk factors. Colonoscopy at 45 per new guidelines, and then typically every 5-10 years depending on risk factors. Cologuard is next best alternative if you are low risk for colon cancer and should be repeated every 3 yrs. Yearly eye exam Yearly dental exam. Dentists prefer this to be every 6 months Yearly physical exam with your primary care doctor Immunizations: Yearly Influenza Tetanus, Diphtheria, and Pertussis (Tdap) or Td booster every 10 years Adults under age 60 should consider 3 dose hepatitis-B vaccination series if not previously completed Prevnar 20 (strep pneumonia vaccine) after age 65 or at any age if you smoke, have diabetes, or anylung or heart problems. If you do PPSV23, then you may consider getting Prevnar 20 one year later. If you have already completed the PPSV23 (pneumovax) and the PCV 13 (prevnar 13) then you do not need the Prevnar 20 Shingles (Shingrix) vaccine after age 50 - It is a series of 2 shots given 2 to 6 months apart. Cuts risk of shingles by about 90%. Please check with insurance company to check for coverage and if they prefer you get it at our office or at a local pharmacy. Medicare based insurance prefer at the pharmacy. RSV vaccination should be considered in adults 70 and older, especially in those with weakened immune systems or increased risk factors for more significant respiratory illness Please get vaccination against COVID-19, if not already done. A seasonal COVID booster we will likely be recommended every fall/winter for the next few years Other Suggestions: Try to get 30 minutes of aerobic exercise daily. Goal is 150 minutes of moderate physical activity a week Maintain a healthy Body Mass Index of 18.5-25. If overweight, please try to work on gradual weight loss through diet and exercise Please make sure to wear your seat belt regularly Please make sure to wear sunscreen whenever outside for any prolonged length of time Aim for 1000 - 1200 mg of calcium daily: There are 300 mg of calcium in each serving of yogurt, cheese, milk, and cooked greens 400 mcg of Folic Acid if you are of childbearing age. This can help decrease risk of certain types of defects if you were to get Try not to exceed one alcoholic beverage per day Avoid smoking. If you are currently smoking, please stop If you do not hear for my office within 2 weeks of doing lab work, please check [employer] (if active)or reach out to our office for results as we have likely been trying to get a holding you either through [employer], by phone, or by mail.. Please call office during routine office hours if any questions or concerns. Schedule a Follow up Appointment with me in: 1 year for physical Health Maintenance Topic Date Due Cervical Cancer Screening Never done DTaP/Tdap/Td Vaccine (1 - Tdap) Never done Hepatitis B Screening Never done Regular Well Visit/Exam 18-64 10/01/2023 Influenza Vaccine (1) 03/17/2024 Depression Screening 03/07/2025 Hepatitis C Screening Completed Pneumococcal vaccine <65 Aged Out HPV Vaccines Aged Out Varicella Vaccines Discontinued documented in this encounter Ordered Prescriptions Prescription Sig Dispense Quantity Refills Last Filled Start Date End Date levothyroxine (SYNTHROID) 125 mcg tabletIndications:Ac quired hypothyroidism Take 1 tablet (125 mcg total) by mouth daily before breakfast 90 tablet 3 03/08/2024 documented in this encounter Progress Notes * Zoe Mesa MD - 03/07/2024 3:30 PM CDT SUBJECTIVE: Valerie Real is a 29 y.o. female here for follow up visit hypothyroidism and her annual physical Hypothyroidism - on levothyroxine. Denies missed dose. Takes rx at night about 2 hrs after eating. Energy fair. Denies excessive temperature intolerance Hx of anxiety or depression. Mood is doing well PHQ Screening Over the past 2 weeks, how often have you been bothered by any of the following problems? Little Interest or Pleasure in Doing Things: Not at all Feeling Down, Depressed, or Hopeless: Not at all PHQ-2 Total Score (If total score is 3 or more points, staff should administer the PHQ-9): 0 Trouble Falling or Staying Asleep, or Sleeping too Much: Not at all Feeling Tired or Having Little Energy: Not at all Poor Appetite or Overeating: Not at all Feeling Bad About Yourself - or That You are a Failure or Have Let Yourself or Your Family Down: Not at all Trouble Concentrating on Things, Such as Reading the Newspaper or Watching Television: Not at all Moving or Speaking so Slowly That Other People Could Have Noticed, or the Opposite - Being so Fidgety or Restless That You Have Been Moving Around a lot More Than Usual: Not at all Thoughts That You Would be Better off , or of Hurting Yourself in Some Way: Not at all PHQ-9 Total Score: 0 If you checked off any problems, how difficult have these problems made it for you to do your work,take care of things at home, or get along with other people?: Not difficult at all WEI-7 Feeling nervous, anxious, or on edge: Not at all sure Not being able to stop or control worrying: Not at all sure Worrying too much about different things: Not at all sure Trouble relaxing: Not at all sure Being so restless that it's hard to sit still: Not at all sure Becoming easily annoyed or irritable: Not at all sure Feeling afraid as if something awful might happen: Not at all sure Total Score: 0 If you checked off any problems, how difficult have these made it for you to do your work, take care of things at home, or get along with other people?: Not difficult at all Active at work. Works 12.5 hrs most days. Feels get heart rate up and counts Tries to watch diet Liver spot - likely small hemangioma vs cyst. Saw GI. Pt defers repeat imaging for another year Microscopic hematuria - saw urology. Negative cystoscopy. work up negative. Saw Dr. Yu. Reports she was told PCP can monitor urine REVIEW OF SYSTEMS Constitutional: Denies fever, chills Ears, nose, mouth, and throat: Denies nasal discharge. Denies sorethroat Respiratory: Denies cough, dyspnea, wheezing Cardiovascular: Denies chest pain, palpitations, Gastrointestinal: Denies abdominal pain, nausea, vomiting, diarrhea, constipation, bloody stools ormelena Neurological: Denies syncope, dizziness. Denies TIA or stroke-like symptoms Endocrine: Denies fatigue Current Outpatient Medications on File Prior to Visit Medication Sig Dispense Refill levothyroxine (SYNTHROID) 125 mcg tablet Take 1 tablet (125 mcg total) by mouth daily before breakfast 90 tablet 1 [DISCONTINUED] benzonatate (TESSALON) 200 mg capsule Take 1 capsule (200 mg total) by mouth 3 (three) times a day as needed for cough 30 capsule 0 No current facility-administered medications on file prior to visit. Allergies Allergen Reactions Amoxicillin Hives Clindamycin Hives, Itching and Rash Penicillins Hives Zithromax [Azithromycin] Rash Social History Tobacco Use Smoking status: Never Smokeless tobacco: None Substance and Sexual Activity Drug use: Never Sexual activity: Yes Partners: Male control/protection: Tubal Ligation Alcohol Use: Not At Risk (04/20/2023) AUDIT-C Frequency of Alcohol Consumption: Never Average Number of Drinks: Not on file Frequency of Binge Drinking: Not on file OBJECTIVE: Vitals: 03/07/24 1506 BP: 112/62 BP Location: Left arm Patient Position: Sitting Pulse: 66 Resp: 20 Temp: 37.1 ??C (98.7 ??F) TempSrc: Oral SpO2: 98% Weight: 102.3 kg (225 lb 8 oz) Height: 157.5 cm (5' 2.01 ) Body mass index is 41.23 kg/m??. General: alert, well appearing, and in no acute distress HEENT: Normocephalic atraumatic. PERRLA, EOMI, no conjunctivitis. Bilateral TM's and external ear canals normal. Oral mucous membranes moist, pharynx normal without lesions, no tonsillar erythema/edema/exudates. No cervical adenopathy. Thyroid normal without nodules or thyromegaly. CV exam: regular rate and rhythm, normal S1 and S2, no murmurs, rubs, or gallops appreciated. Respiratory: clear to auscultation bilaterally, no wheezes, rales, or rhonchi, Good aeration. no tachypnea, retractions, or cyanosis Abdominal exam: Soft, non-tender abdomen. No rebound or guarding. No masses or hepatosplenomegaly noted. Neuro: Alert and oriented x 3, Cranial nerves II-XII grossly intact. Grossly non-focal Extremities: No cyanosis, clubbing, or edema. Psych: slightly flat mood and affect. Denies depression or thoughts of self harm Skin: Warm, dry, without significant rash ASSESSMENT & PLAN: Diagnoses and all orders for this visit: Routine physical examination (Z00.00) (Primary) - TSH; Future - Comprehensive metabolic panel; Future - CBC with auto differential; Future - Urinalysis reflex to microscopic and culture Urine, clean voided; Future Acquired hypothyroidism (E03.9) Assessment & Plan: Chronic. Relatively euthyroid. Check TSH and adjust levothyroxine as needed. Patient denies any recent missed dose Orders: - TSH; Future Other microscopic hematuria (R31.29) Assessment & Plan: No gross hematuria. Had urology evaluation. We need records. CT urogram without cause. Patient reports urology workup was otherwise negative. We should monitor urine yearly. Patient does have historyof significant secondhand smoke exposure growing up Orders: - CBC with auto differential; Future - Urinalysis reflex to microscopic and culture Urine, clean voided; Future Iron deficiency anemia due to chronic blood loss (D50.0) Assessment & Plan: History. Denies recent heavy periods. Check CBC. Monitor Orders: - CBC with auto differential; Future Liver hemangioma (D18.03) Assessment & Plan: Patient had likely small liver hemangioma versus cyst. This is low risk. Patient has been significantly concerned about it in the past so was offered option for yearly MRI to monitor when she saw GI.Due to cost, patient is now deferring yearly follow-up. We can reconsider in a couple years if she desires Orders: - Comprehensive metabolic panel; Future Class 3 severe obesity due to excess calories without serious comorbidity with body mass index (BMI) of 40.0 to 44.9 in adult (HCC) (E66.01, Z68.41) Assessment & Plan: Chronic obesity, BMI significantly worse since last visit. Encouraged healthy diet, exercise and weight loss efforts. Patient reports work she is not able to exercise and does not always watch what she eats Health Maintenance: Discussed health maintenance issues including regular seat belt use, dental care, sunscreen use, good nutritional habits, and regular aerobic exercise. Preventative care counseling/screening: Smoking cessation: na Colon cancer screening (adults 45-75, or younger if risks factors): na Pap smear (age 21-65 female): up to date per pt. We need report Mammogram (women 40+): na Osteoporosis screening (women > 65): na Lung Cancer screening (50-80 with 20 pack year Hx): na Hep C screening (one time for adults born after 1940): done Healthy Living Tips Low fat, low cholesterol diet rich in lean proteins, whole grains, fruits and vegetables. Limit fast foods and processed foods ACSM activity recs: 150 minutes/week. 30 minutes most days of the week. Vaccinations updated: Tetanus (Tdap Q 10 yr): discussed. Pt declines Shingrix (over age 50): na Influenza (yearly): na Pneumococcal vaccine (65+, or if risk factors): na Advised to call back directly if there are further questions, or if these symptoms fail to improve as anticipated or worsen, or any new concerns arise An After Visit Summary was printed and given to the patient. Follow up 1 yr for physical. Zoe Mesa MD documented in this encounter Miscellaneous Notes * Assessment & Plan Note - Zoe Mesa MD - 03/07/2024 3:48 PM CDT Associated Problem(s): Class 3 severe obesity due to excess calories without serious comorbidity with body mass index (BMI) of 40.0 to 44.9 in adult (HCC) Chronic obesity, BMI significantly worse since last visit. Encouraged healthy diet, exercise and weight loss efforts. Patient reports work she is not able to exercise and does not always watch what she eats * Assessment & Plan Note - Zoe Mesa MD - 03/07/2024 3:47 PM CDT Associated Problem(s): Liver hemangioma Patient had likely small liver hemangioma versus cyst. This is low risk. Patient has been significantly concerned about it in the past so was offered option for yearly MRI to monitor when she saw GI.Due to cost, patient is now deferring yearly follow-up. We can reconsider in a couple years if she desires * Assessment & Plan Note - Zoe Mesa MD - 03/07/2024 3:47 PM CDT Associated Problem(s): Other microscopic hematuria No gross hematuria. Had urology evaluation. We need records. CT urogram without cause. Patient reports urology workup was otherwise negative. We should monitor urine yearly. Patient does have historyof significant secondhand smoke exposure growing up * Assessment & Plan Note - Zoe Mesa MD - 03/07/2024 3:46 PM CDT Associated Problem(s): Iron deficiency anemia due to chronic blood loss History. Denies recent heavy periods. Check CBC. Monitor * Assessment & Plan Note - Zoe Mesa MD - 03/07/2024 3:46 PM CDT Associated Problem(s): Acquired hypothyroidism Chronic. Relatively euthyroid. Check TSH and adjust levothyroxine as needed. Patient denies any recent missed dose * Addendum Note - Zoe Mesa MD - 03/07/2024 3:30 PM CDTAddended by: ZOE MESA on: 03/08/2024 04:00 PM Modules accepted: Orders documented in this encounter Plan of Treatment Not on file documented as of this encounter Results * (ABNORMAL) Urinalysis reflex to microscopic and culture Urine, clean voided (03/07/2024 3:45 PM CDT) Color, ur Yellow Yellow Clarity, ur Clear Clear [facility] Specific gravity, ur 1.023 1.003 - 1.030 [facility] pH, urine 5.0 [facility] Comment: Interpretive Data ? Urine pH is affected by diet, medications, systemic acid-base disturbances, and renal tubular function. ??pH may affect urinary stone formation. ??For example, urine pH below 6.0 may help reduce the tendency for calcium phosphate stones and pH greater than 6.0 may reduce the tendency for uric acid stone formation. Source: [employer] Current Interpretive Data was last revised on 2017 Protein, ur ql Negative Negative [facility] Glucose, ur ql Negative Negative [facility] Ketones, ur Negative Negative [facility] Bilirubin, ur Negative Negative [facility] Blood, ur 2+(A) Negative [facility] Urobilinogen, ur <2.0 <2.0 mg/dL [facility] Nitrite, ur Negative Negative [facility] Leukocyte esterase, ur Negative Negative [facility] UA reflex comment Reflex to microscopic UA will be performed. [facility] Urine, clean voided 03/07/2024 3:45 PM CDT 03/07/2024 8:06 PM CDT Zoe Mesa MD LAB MICROBIOLOGY - GEN ERAL ORDERABLES Final Result Performing Organization Address [facility]/ZIP Co de Phone Number LUISA CAREY [address] [place] [address] * CBC with auto differential (03/07/2024 3:45 PM CDT) WBC 7.4 3.8 - 9.9 K/cumm Hgb 13.2 11.9 - 15.5 g/dL [facility] Hct 40.5 35.6 - 45.5 % [facility] Plt 358 150 - 400 K/cumm [facility] MPV 9.7 9.1 - 12.3 fL [facility] RBC 4.37 3.90 - 5.20 M/cumm [facility] MCV 92.7 81.3 - 96.4 fL [facility] MCH 30.2 27.1 - 33.3 pg [facility] MCHC 32.6 32.3 - 35.7 g/dL [facility] RDW CV 12.7 11.1 - 14.9 % [facility] RDW SD 43.5 35.7 - 48.1 fL [facility] NRBC abs 0.00 0.00 - 0.01 K/cumm [facility] Blood 03/07/2024 3:45 PM CDT 03/07/2024 8:06 PM CDT Zoe Mesa MD LAB BLOOD ORDERABLES F inal Result Performing Organization Address City/[facility]/ZIP Co de Phone Number LUISA CAREY [address] Department [place] [address] [address] * Comprehensive metabolic panel (03/07/2024 3:45 PM CDT) Sodium 141 135 - 145 mmol/L Potassium, pl 4.3 3.3 - 4.9 mmol/L [facility] Chloride 105 97 - 110 mmol/L [facility] CO2 26 22 - 32 mmol/L [facility] Anion gap 10 2 - 15 mmol/L [facility] BUN 12 6 - 25 mg/dL [facility] Creatinine 0.66 0.60 - 1.10 mg/dL [facility] Glucose 85 70 - 199 mg/dL [facility] Comment: Interpretive Data Fasting glucose >/= 126 mg/dl is diagnostic for diabetes. ?? Fasting is defined as no caloric intake for at least 8 hours. Fasting glucose between 100 mg/dl to 125 mg/dl is diagnostic of prediabetes. In a patient with classic symptoms of hyperglycemia or hyperglycemic crisis, a random glucose >/= 200 mg/dl is diagnostic for diabetes. In the absence of unequivocal hyperglycemia, results should be confirmed by repeat testing. The classification and Diagnosis of Diabetes Diabetes Care 2021; 46: S19-S40. Current interpretive data was last revised 2022. Calcium 9.2 8.5 - 10.3 mg/dL [facility] Bilirubin, total 0.4 0.1 - 1.2 mg/dL [facility] Protein, pl 8.0 6.5 - 8.5 g/dL [facility] Albumin 4.2 3.5 - 5.0 g/dL [facility] Alk phos 88 40 - 130 Units/L [facility] ALT 13 7 - 45 Units/L [facility] AST 20 10 - 45 Units/L [facility] Blood 03/07/2024 3:45 PM CDT 03/07/2024 8:06 PM CDT us Zoe Mesa MD LAB BLOOD ORDERABLES F inal Result LUISA CAREY [address] Department [place] [address] * TSH (03/07/2024 3:45 PM CDT) Thyroid Stimulating Hormone 1.50 0.30 - 4.20 mcIUnit/mL Blood 03/07/2024 3:45 PM CDT 03/07/2024 8:06 PM CDT us Zoe Mesa MD LAB BLOOD ORDERABLES F inal Result LUISA CAREY [address] Department [place] [address] documented in this encounter Visit Diagnoses Diagnosis Routine physical examination- Primary Routine general medical examination at a health care facility Acquired hypothyroidism Unspecified hypothyroidism Other microscopic hematuria Iron deficiency anemia due to chronic blood loss Iron deficiency anemia secondary to blood loss (chronic) Liver hemangioma Class 3 severe obesity due to excess calories without serious comorbidity with body mass index (BMI) of 40.0 to 44.9 in adult (HCC) documented in this encounter Discontinued Medications Medication Sig Discontinue Reason Start Date End Da te benzonatate (TESSALON) 200 mg capsuleIndications:Acute cough Take 1 capsule (200 mg total) by mouth 3 (three) times a day as needed for cough Therapy completed 10/27/2023 03/07/2024 levothyroxine (SYNTHROID) 125 mcg tabletIndications:Acquire d hypothyroidism Take 1 tablet (125 mcg total) by mouth daily before breakfast Reorder 01/24/2024 03/08/2024 documented as of this encounter Care Teams Information Specialist Relationship Specialty Start Date End Date Zoe Mesa MD PCP - General Family Practice 03/22/22 [place] [address] [place] [address] Consulting Physician Urology 03/07/24 Shasta Stone MD [address] [place] [address] Obstetrics and Gynecology 03/07/24 documented as of this encounter
--- OUTSIDE RECORDS SUMMARY | 2024-07-18 00:05 | XMS_ITS | Clinical Summary ---
Author Organization [facility] Address [address] [place] [address] Phone Care Team Providers Care Optical Laboratory Mechanic Name Role Phone Zoe Garcia MD Primary Care Provider Eliu Yu MD Unavailable [phone] Shasta Stone MD Unavailable [phone] Allergies Active Allergy Reactions Criticality Noted Date [...] 1 tablet (125 mcg total) by mouth muskrat trapper before breakfast 90 tablet 3 03/14/20 24 [...] 09/24/2021 Assessment & Plan (09/24/2021 10:34 PM SALES MARKET LEADER): - chronic, stable - diagnosed around age 17 - currently on Levothyroxine 100 mcg - most recent TSH as shown below - continue with current therapy Lab Results Component Value Date TSH 3.03 09/24/2021 Assessment & Plan (05/27/2021 8:22 AM SALES MARKET LEADER): - chronic,s table - diagnosed around age [...] Monitor Assessment & Plan (09/24/2021 10:35 PM SALES MARKET LEADER): - chronic, stable - has a hx of iron def anemia - taking iron tablet 324 mg once daily - most recent CBC + Iron studies - continue with current therapy Lab Results Component Value Date HGB 13.7 09/24/2021 Lab Results Component Value Date IRON 85 09/24/2021 TIBC 285 09/24/2021 FERRITIN 95 09/24/2021 Assessment & Plan (05/27/2021 8:22 AM SALES MARKET LEADER): - chronic, stable - has a hx [...] range. Patient was rude and uncooperative with durable medical equipment technician on intake, and during our visit, she [...] counselling Assessment & Plan (05/27/2021 8:20 AM SALES MARKET LEADER): - chronic, stable - reports hx of [...] 03/07/2024 Assessment & Plan (05/27/2021 1:59 PM SALES MARKET LEADER): - used to have heavy menstrual cycles [...] exercise Assessment & Plan (09/24/2021 10:35 PM SALES MARKET LEADER): Wt Readings from Last 3 Encounters: 09/24/21 99.3 kg (219 lb) 05/27/21 100.4 kg (221 lb 6.4 oz) 02/19/21 100 kg (220 lb 8 oz) Body mass index is 40.05 kg/m??. - chronic, not at goal - BMI Follow-up includes: managing nutrition/diet and physical exercise Assessment & Plan (05/27/2021 8:21 AM SALES MARKET LEADER): Wt Readings from Last 3 Encounters: 05/27/21 [...] to lose 1-2 lbs weekly. Verbalized understanding. Encounters Date Type Department Care Team Description 07/16/2024 Telephone [facility] Medical [facility] Primary Care at [address] [address] Zoe Garcia MD [facility] 04/29/2024 Telephone [facility] Primary Care at [address] [address] Zoe Garcia MD 04/29/2024 Telephone [facility] Imaging at [address] [address] Mick Cason CNA from Last 3 Months Immunizations Name Administration Dates Next Due Influenza, Unspecified 07/17/2022(Deferr ed: Patient Refused),04/16/2021(Deferred: Patient Refused),08/03/2020(Deferred: Patient decision - do not believe in.),04/16/2020(Deferred: Patient Refused),04/16/2020(Deferred: Patient Refused),04/16/2020(Deferred: Patient Refused),07/17/2019(Deferred: Patient Refused) Surgical History Surgery Date Site/Laterality Comments WISDOM TOOTH EXTRACTION 07/17/2016 - 07/16/2017 SALPINGECTOMY 04/16/2022 - 05/16/2022 Bilateral Medical History Medical History Date Comments Anemia Hypothyroidism Menorrhagia Anxiety Depression Keratosis pilaris Family History Medical History Relation Name Comments No Known Problems Brother Hypertension Father Stroke Father Cancer Maternal Grandfather unsure of primary Breast cancer Maternal Grandmother Stomach cancer Maternal Grandmother Pt un sure of diagnosis. 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 Not on file Not on file Obstetrics History Last Filed Vital Signs Vital Sign Reading [...] 03/07/2024 3:06 PM CDT Plan of Treatment Health Maintenance Due Date Last Done Comments Cervical Cancer Screening 1997 DTaP/Tdap/Td Vaccine (1 - Tdap) 02/18/2008 Influenza Vaccine (#1) 2024 Hepatitis B Screening 09/07/2024 Postpo martinez from 2015 (Patient declined, but will receive in the future) Depression Screening 03/07/2025 03/07/2024, 03/07/2024, 02/10/2022, Additional history exists Regular Well Visit/Exam 18-64 03/07/2025 03/07/2024, 09/30/2022, 02/19/2021, Additional history exists Hepatitis C Screening Completed 01/09/2023 HPV Vaccines Aged Out No longer eligi ble based on patient's age to complete this topic Pneumococcal vaccine <65 Aged Out No longer eligible based on patient's age to complete this topic Varicella Vaccines Discontinued Procedures Procedure Name Priority Date/Time Associated Diagnosis [...] last revised on 19. Testing performed by: [facility], [address] [place] [address], [place] [address] Hep B core IgM Nonreactive Nonreactive Aelxus VASQUEZ (REINIER) Comment: Interpretive Data If HepB Core IgM Ab is reported as Equivocal, a new sample should be drawn in two weeks for testing. Current interpretive data was last revised on 19. Testing performed by: [facility], [address] [place] [address], [place] [address] Hep C Ab Nonreactive Nonreactive LUISA VASQUEZ [...] last revised on 2019. Testing performed by: [facility], [address] [place] [address]., [id number] HepBsAg Nonreactive Nonreactive LUISA VASQUEZ (REINIER) Comment:Testing performed by : [facility], [address] [place] [address]., [id number] Blood 01/09/2023 8:03 AM CDT 01/09/2023 2:08 PM CDT Jerson Montenegro G[employer]F [employer]UB FACER LAB MICROBIOLOGY - GENERAL ORDERABLES Final Result LUISA CHRISTINA (REINIER) 1 [facility] Department [place] [address] from Last 3 Months or Most Recently Relevant to Health Maintenance Insurance [facility] CHOICE PLUS Care Teams Optical Laboratory Mechanic Relationship Specialty Start Date End Date Zoe Garcia MD PCP - General Family Practice 03/22/22 [place] [address] [place] [address] Consulting Physician Urology 03/07/24 Shasta Stone MD [address] [place] [address] Obstetrics and Gynecology 03/07/24
--- OUTSIDE RECORDS SUMMARY | 2024-07-18 00:05 | XMS_ITS | Encounter Summary ---
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 Garcia no longer being with [facility] and Help with choosing a new PCP number given. [phone] opt 1 documented in this encounter Plan of Treatment Not on file documented as of this encounter Visit Diagnoses Not on filedocumented in this encounter Care Teams Him Coder Relationship Specialty Start Date End Date Zoe Garcia MD PCP - General Family Practice 03/22/22 [place] [address] [place] [address] Consulting Physician Urology 03/07/24 Shasta Stone MD [address] [place] [address] Obstetrics and Gynecology 03/07/24 documented as of this encounter
--- OUTSIDE RECORDS SUMMARY | 2024-07-18 00:05 | XMS_ITS | Encounter Summary ---
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 Garcia no longer being with [facility] and Help with choosing a new PCP number given. [phone] opt 1 documented in this encounter Plan of Treatment Not on file documented as of this encounter Visit Diagnoses Not on filedocumented in this encounter Care Teams Kennel Keeper Relationship Specialty Start Date End Date Zoe Garcia MD PCP - General Family Practice 03/22/22 [place] [address] [place] [address] Consulting Physician Urology 03/07/24 Shasta Stone MD [address] [place] [address] Obstetrics and Gynecology 03/07/24 documented as of this encounter
--- OUTSIDE RECORDS SUMMARY | 2024-07-18 00:05 | XMS_ITS | Encounter Summary ---
Author Organization [facility] Healthcare Address [address] [place] [address] Care Team Providers Care Refractory Products Supervisor Name Role Phone Zoe Garcia MD Primary Care Provider Eliu Yu MD Unavailable [phone] Shasta Stone MD Unavailable [phone] Encounter Details Date Type Department Care Team (Latest Contact Info) Description 03/07/2024 3:45 PM CDT - 03/07/2024 11:59 PM CDT Hospital Encounter [facility] [address] [place] [address] Other microscopic hematuria; Routine physical examination; Iron deficiency anemia due to chronic blood loss; Liver hemangioma; Acquired hypothyroidism Discharge Disposition: Discharge to home or self care Social History Tobacco Use Types Packs/Day Years [...] 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 Not on file Not on file documented as of this encounter Medications at Time of Discharge levothyroxine (SYNTHROID) 125 mcg tabletIndications:Ac quired hypothyroidism Take 1 tablet (125 mcg total) by mouth daily before breakfast 90 tablet 1 01/24/2024 4 levothyroxine (SYNTHROID) 125 mcg tabletIndications:Ac quired hypothyroidism Take 1 tablet (125 mcg total) by mouth daily before breakfast 90 tablet 3 03/08/2024 4 documented as of this encounter Discharge Disposition Disposition Code Departure Means Destination Discharge to home or self care documented in this encounter Plan of Treatment Not on file documented as of this encounter Procedures Procedure Name Priority Date/Time Associated Diagnosis Comments EGFR Routine 03/07/2024 3:45 PM CDT Routine physical examination Liver hemangioma DIFFERENTIAL AUTO Routine 03/07/2024 3:4 5 PM CDT Other microscopic hematuria Routine physical examination Iron deficiency anemia due to chronic blood loss URINALYSIS AND REFLEX TO MICROSCOPIC AND CULTURE Routine 03/07/2024 3:45 PM CDT Other microscopic hematuria Routine physical examination CBC WITH AUTO DIFFERENTIAL Routine 03/07/2024 3:45 PM CDT Other microscopic hematuria Routine physical examination Iron deficiency anemia due to chronic blood loss URINALYSIS, MICROSCOPIC ONLY Routine 03/07/2024 3:45 PM CDT Other microscopic hematuria Routine physical examination TSH Routine 03/07/2024 3:45 PM CDT Acquired hypothyroidism Routine physical examination COMPREHENSIVE METABOLIC PANEL Routine 03/07/2024 3:45 PM CDT Routine physical examination Liver hemangioma documented in this encounter Results * eGFR (03/07/2024 3:45 PM CDT) eGFR >90 >=60 mL/min/1. 73 m2 Comment: Interpretive Data Reference Interval Normal ?>/= 90 mL/min/1.73m2 Mildly decreased* ? 60 - 89 mL/min/1.73m2 Mildly to moderately decreased ?45 - 59 mL/min/1.73m2 Moderately to severely decreased ??30 - 44 mL/min/1.73m2 Severely decreased ?15 - 29 mL/min/1.73m2 Kidney Failure ?< 15 ??mL/min/1.73m2 *Relative to young adult level Estimated glomerular filtration rate is determined by the 2020 CKD-EPI equation recommended by the National Kidney Foundation (A Unifying Approach to GFR Estimation: Recommendations of the NKF-ASK Task Force on Reassessing the Inclusion of Race in Diagnosing Kidney Disease, JASN 2020). The CKD-EPI equation should not be used for patients with unstable renal function and has not been validated in children and those over 70. Current interpretive data was last reviewed 2021. Blood 03/07/2024 3:45 PM CDT 03/07/2024 8:11 PM CDT Zoe Garcia MD LAB BLOOD ORDERABLES F inal Result [facility] [address] Department [place] [address] * (ABNORMAL) Urinalysis, microscopic only (03/07/2024 3:45 PM CDT) Pathologist [facility] WBC, ur 0-5 0 - 5 /HPF RBC, ur 3-5(A) 0 - 2 /HPF [facility] Epithelial cells, squamous, ur 1-5 0 - 5 /HPF [facility] Mucous, ur Present(A) [facility] Culture Reflex Comment Reflex conditions for urine culture (WBC >10) not met. [facility] Urine, clean voided 03/07/2024 3:45 PM CDT 03/07/2024 8:06 PM CDT Zoe Garcia MD LAB URINE ORDERABLES F inal Result [facility] [address] Department [place] [address] * Differential, auto (03/07/2024 3:45 PM CDT) Neutrophil abs 4.0 1.5 - 6.5 K/cumm Imm gran abs 0.0 0.0 - 0.1 K/cumm [facility] Lymphocyte abs 2.5 0.8 - 3.3 K/cumm [facility] Monocyte abs 0.7 0.2 - 0.8 K/cumm [facility] Eosinophil abs 0.1 0.0 - 0.5 K/cumm [facility] Basophil abs 0.1 0.0 - 0.1 K/cumm [facility] Neutrophil pct 53.9 % [facility] Comment: Interpretive Data Percent cell count reference ranges are not reported, since discordance with absolute values may lead to misinterpretation of CBC data. Current Interpretive Data was last revised on 2017. Imm gran pct 0.3 % [facility] Comment: Interpretive Data Percent cell count reference ranges are not reported, since discordance with absolute values may lead to misinterpretation of CBC data. Current Interpretive Data was last revised on 2017. Lymphocyte pct 33.9 % [facility] Comment: Interpretive Data Percent cell count reference ranges are not reported, since discordance with absolute values may lead to misinterpretation of CBC data. Current Interpretive Data was last revised on 2017. Monocyte pct 9.3 % [facility] Comment: Interpretive Data Percent cell count reference ranges are not reported, since discordance with absolute values may lead to misinterpretation of CBC data. Current Interpretive Data was last revised on 2017. Eosinophil pct 1.9 % [facility] Comment: Interpretive Data Percent cell count reference ranges are not reported, since discordance with absolute values may lead to misinterpretation of CBC data. Current Interpretive Data was last revised on 2017. Basophil pct 0.7 % [facility] Comment: Interpretive Data Percent cell count reference ranges are not reported, since discordance with absolute values may lead to misinterpretation of CBC data. Current Interpretive Data was last revised on 2017. Blood 03/07/2024 3:4 5 PM CDT 03/07/2024 8:06 PM CDT Zoe Garcia MD LAB BLOOD ORDERABLES F inal Result Performing Organization Address [facility] Co de Phone Number [facility] [address] [employer] [place] [address] * TSH (03/07/2024 3:45 PM CDT) Thyroid Stimulating Hormone 1.50 0.30 - 4.20 mcIUnit/mL Blood 03/07/2024 3:45 PM CDT 03/07/2024 8:06 PM CDT Zoe Garcia MD LAB BLOOD ORDERABLES F inal Result Performing Organization Address [facility] Co de Phone Number [facility] [address] [facility] [place] [address] * Comprehensive metabolic panel (03/07/2024 3:45 PM CDT) Sodium 141 135 - 145 mmol/L Potassium, pl 4.3 3.3 - 4.9 mmol/L [facility] Chloride 105 97 - 110 mmol/L [facility] CO2 26 22 - 32 mmol/L [facility] Anion gap 10 2 - 15 mmol/L [facility] BUN 12 6 - 25 mg/dL [facility] Creatinine 0.66 0.60 - 1.10 mg/dL [facility] Glucose 85 70 - 199 mg/dL [facility] Comment: Interpretive Data Fasting glucose >/= 126 [...] classification and Diagnosis of Diabetes Diabetes Care 202; 46: S19-S40. Current interpretive data was last [...] PM CDT 03/07/2024 8:06 PM CDT Zoe Garcia MD LAB BLOOD ORDERABLES F inal Result [facility] [address] Department [place] [address] * CBC with auto differential (03/07/2024 3:45 PM CDT) Pathologist [facility] WBC 7.4 3.8 - 9.9 K/cumm Hgb 13.2 11.9 - 15.5 g/dL [facility] Hct 40.5 35.6 - 45.5 % [facility] Plt 358 150 - 400 K/cumm [facility] MPV 9.7 9.1 - 12.3 fL [facility] RBC 4.37 3.90 - 5.20 M/cumm [facility] MCV 92.7 81.3 - 96.4 fL [facility] MCH 30.2 27.1 - 33.3 pg [facility] MCHC 32.6 32.3 - 35.7 g/dL [facility] RDW CV 12.7 11.1 - 14.9 % [facility] RDW SD 43.5 35.7 - 48.1 fL [facility] NRBC abs 0.00 0.00 - 0.01 K/cumm [facility] Blood 03/07/2024 3:45 PM CDT 03/07/2024 8:06 PM CDT Zoe Garcia MD LAB BLOOD ORDERABLES F inal Result [facility] [address] Department [place] [address] * (ABNORMAL) Urinalysis reflex to microscopic and [...] tendency for uric acid stone formation. Source: [facility] [employer] Current Interpretive Data was last revised on 2017 Protein, ur ql Negative Negative [facility] Glucose, ur ql Negative Negative [facility] Ketones, ur Negative Negative [facility] Bilirubin, ur Negative Negative [facility] Blood, ur 2+(A) Negative [facility] Urobilinogen, ur <2.0 <2.0 mg/dL [facility] Nitrite, ur Negative Negative [facility] Leukocyte esterase, ur Negative Negative [facility] UA reflex comment Reflex to microscopic UA will be performed. [facility] Urine, clean voided 03/07/2024 3:45 PM CDT 03/07/2024 8:06 PM CDT Zoe Garcia MD LAB MICROBIOLOGY - GEN ERAL ORDERABLES Final Result [facility] [address] Department [place] [address] documented in this encounter Visit Diagnoses Diagnosis Other microscopic hematuria Routine physical examination Routine general medical examination at a health care facility Iron deficiency anemia due to chronic blood loss Iron deficiency anemia secondary to blood loss (chronic) Liver hemangioma Acquired hypothyroidism Unspecified hypothyroidism documented in this encounter Care Teams Refractory Products Supervisor Relationship Specialty Start Date End Date Zoe Garcia MD PCP - General Family Practice 03/22/22 [place] [address] [place] [address] Consulting Physician Urology 03/07/24 Shasta Stone MD [address] [place] [address] Obstetrics and Gynecology 03/07/24 documented as of this encounter
--- OUTSIDE RECORDS SUMMARY | 2024-07-18 00:05 | XMS_ITS | Encounter Summary ---
Author Organization [facility] Healthcare Address [address] [place] [address] Care Team Providers Care Highway Inspector Name Role Phone Zoe Garcia MD Primary Care Provider Eliu Yu MD Unavailable [phone] Shasta Stone MD Unavailable [phone] Encounter Details Date Type Department Care Team (Late st Contact Info) Description 03/07/2024 3:45 PM CDT Lab [facility] Medical Group Outpatient Lab at [address] [address] Acquired hypothyroidism (Primary Dx); Liver hemangioma; Iron deficiency anemia due to chronic blood loss; Class 3 severe obesity due to excess calories without serious comorbidity with body mass index (BMI) of 40.0 to 44.9 in adult (HCC) Social History Tobacco Use Types Packs/Day Years [...] 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 Not on file Not on file documented as of this encounter Plan of Treatment Not on file documented as of this encounter Visit Diagnoses Diagnosis Acquired hypothyroidism- Primary Unspecified hypothyroidism Liver hemangioma Iron deficiency anemia due to chronic blood loss Iron deficiency anemia secondary to blood loss (chronic) Class 3 severe obesity due to excess calories without serious comorbidity with body mass index (BMI) of 40.0 to 44.9 in adult (HCC) documented in this encounter Care Teams Highway Inspector Relationship Specialty Start Date End Date Zoe Garcia MD PCP - General Family Practice 03/22/22 [place] [address] [address] Consulting Physician Urology 03/07/24 Shasta Stone MD [address] [facility] [address] [place] [address] Obstetrics and Gynecology 03/07/24 documented as of this encounter
--- OUTSIDE RECORDS SUMMARY | 2024-07-18 00:05 | XMS_ITS | Encounter Summary ---
Author Organization [facility] Healthcare Address [address] [place] [address] Care Team Providers Care Investigative Reporter Name Role Phone Shasta Stone MD Unavailable [phone] Zoe Garcia MD Primary Care Provider Encounter Details Date Type Department Care Team (Late st Contact Info) Description 01/22/2024 Telephone [facility] Medical Group Gastroenterology at [address] [place] [address] Jerson Montenegro NP [address] [facility] [address] [place] [address] Social History Tobacco Use Types Packs/Day Years [...] 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 * Telephone Encounter - Elizabeth Donaldson MA - 01/22/2024 1:53 PM CDT Did precert for mri, npr * Telephone Encounter - Sravani Lugo MA - 01/22/2024 11:51 AM CDT Apryl with [facility] called and patient has new insurance (new insurance is [facility] in chart) MRI needs new auth documented in this encounter Plan of Treatment Not on file documented as of this encounter Visit Diagnoses Not on filedocumented in this encounter Care Teams Investigative Reporter Relationship Specialty Start Date End Date Zoe Garcia MD PCP - General Family Practice 03/22/22 Shasta Stone MD Obstetrics and Gynecology 02/10/22 808/09 documented as of this encounter
--- OUTSIDE RECORDS SUMMARY | 2024-07-18 00:06 | XMS_ITS | Encounter Summary ---
Author Organization [facility] Address [address] [place] [address] Care Team Providers Care Cooker Cleaner Name Role Phone Shasta Stone MD Unavailable [phone] Zoe Garcia MD Primary Care Provider Encounter Details Date Type Department Care Team (Late st Contact Info) Description 02/06/2023 Telephone [facility] Gastroenterology at [address] [place] [address] Elizabeth Donaldson MA Social History Tobacco Use Types Packs/Day Years Used Date Smoking Tobacco: Never Alcohol Use Standard Drinks/Week Comments Never 0 (1 standard drink = 0.6 oz pur e alcohol) AUDIT-C Answer Date Recorded Q1: How often do you have a drink containing alc ohol? 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 Not on file Not on file documented as of this encounter Miscellaneous Notes * Telephone Encounter - Elizabeth Donaldson MA - 02/07/2023 8:21 AM CDT Lvm to inform patient * Telephone Encounter - Elizabeth Donaldson MA - 02/06/2023 10:58 AM CDT Spoke with patient, and she would like to know if this is something that she needs to keep a close eye on, due to her mother having cancer, she states she is not experiencing any symptoms or pain, will call her back to let her know * Telephone Encounter - Elizabeth Donaldson MA - 02/06/2023 10:58 AM CDT ----- Message from Jerson Montenegro NP sent at 02/06/2023 9:32 AM CDT ----- Please call patient with MRI results. The growth on her liver measures 2 mm and has no concerning characteristics with no need for more advanced testing at this time. Most likely represents a benign cyst or hemangioma (cluster of blood vessels). Please send a message to Dr. Hanna if patient hasany questions or concerns based on these findings. documented in this encounter Plan of Treatment Not on file documented as of this encounter Visit Diagnoses Not on filedocumented in this encounter Care Teams Cooker Cleaner Relationship Specialty Start Date End Date Zoe Garcia MD PCP - General Family Practice 03/22/22 Shasta Stone MD Obstetrics and Gynecology 02/10/22 808/09 documented as of this encounter
--- OUTSIDE RECORDS SUMMARY | 2024-07-18 00:06 | XMS_ITS | Encounter Summary ---
Author Organization [facility] Address [address] [place] [address] Care Team Providers Care Internet Sales Manager Name Role Phone Shasta Stone MD Unavailable [phone] Zoe Garcia MD Primary Care Provider Reason for Visit * Reason Onset Date Comments Chills 08/25/2023 Congestion 08/25/2023 Runny Nose 08/25/2023 Sore Throat 08/25/2023 Generalized Body Aches 08/25/2023 Cold Symptoms 08/25/2023 No Contact Made 08/25/2023 Encounter Details Date Type Department Care Team ([facility] Contact Info) Description 08/25/2023 Nurse Triage [facility] Primary Care at [address] [address] Shelley Barillas RN Social History Tobacco Use Types Packs/Day Years [...] 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 I am ok with her going to CC or given I have no access today ROAD ENGINEER * Telephone Encounter - Brenda Ward - 08/25/2023 12:13 PM CST Informed pt via [employer] that she could visit our [facility] and gave her the ways to schedule. ROAD ENGINEER * Telephone Encounter - Shelley Barillas RN - 08/25/2023 11:37 AM CST Reason for Disposition Second attempt to contact caller AND no contact made. Phone number verified. Protocols used: No Contact or Duplicate Contact [id number] Chief Complaint Patient presents with Chills Congestion Runny Nose Sore Throat Generalized Body Aches Cold Symptoms No Contact Made Valerie Real attempted to contact pt on provided phone number. VM left x 2. Pt encouraged to callback if still in need of calculation clerk. Call closed and routed to clinical pool. Routed to clinical pool FYI ROAD ENGINEER * Telephone Encounter - Shelley Barillas RN - 08/25/2023 11:09 AM CST Regarding: Hot/cold chills, runny and stuffy nose, sore throat, body aches ----- Message from Nica Yee sent at 08/25/2023 8:13 AM RAILROAD ENGINEER ----- Symptom Based Call Chief Complaint(s): Hot/cold chills, runny and stuffy nose, sore throat, body aches Duration: 3 days ago What type of symptom(s) is the patient experiencing? Non-Emergent. Is this a new or reoccurring symptom(s)? New What have you tried to help your symptom(s)? Nothing Why was appointment not scheduled? Appointment availability did not meet the patient's need. Additional Comments: Patient was wanting an appointment and was wanting a doctors note. Patient stated she was going to an urgent care and then disconnected the call. Does message need to be routed? Yes-Action Needed ROAD ENGINEER documented in this encounter Plan of Treatment Not on file documented as of this encounter Visit Diagnoses Not on filedocumented in this encounter Care Teams Internet Sales Manager Relationship Specialty Start Date End Date Zoe Garcia MD PCP - General Family Practice 03/22/22 Shasta Stone MD Obstetrics and Gynecology 02/10/2202/15 documented as of this encounter
--- OUTSIDE RECORDS SUMMARY | 2024-07-18 00:06 | XMS_ITS | Encounter Summary ---
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
--- OUTSIDE RECORDS SUMMARY | 2024-07-18 00:06 | XMS_ITS | Encounter Summary ---
Author Organization [facility] Healthcare Address [address] [place] [address] Care Team Providers Care Social Worker Delinquency Prevention Name Role Phone Shasta Stone MD Unavailable [phone] Zoe Garcia MD Primary Care Provider Reason for Visit * Reason Onset Date Comments Vomiting 09/13/2023 Forms Request 09/13/2023 Encounter Details Date Type Department Care Team (Late st Contact Info) Description 09/13/2023 Nurse Triage [facility] Primary Care at [address] [address] Zoe Garcia MD [address] [place] [address] [address] [place] [address] Social History Tobacco Use Types [...] 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 [employer] * Telephone Encounter - Flor Mcneil - 09/14/2023 11:39 AM CST Call Back Caller???s Concern: Pt says she is feeling a little better but still dealing with the symptoms. Sheis asking for a letter to return to work on 09/18/23. She is off on the weekend. Please attach to [employer]. Does message need to be routed? Yes-Action Needed [employer] * Telephone Encounter - Esther Marr ATC - 09/13/2023 2:02 PM CST [employer] message sent. [employer] * Telephone Encounter - Steph Archer MA - 09/13/2023 1:51 PM DIRECTOR ORGANIZATIONAL Please review [employer] * Telephone Encounter - Zoe Garcia MD - 09/13/2023 12:37 PM DIRECTOR ORGANIZATIONAL I do not have ability to send a letter to her an email but I did go ahead and send her a letter through [employer] that she should be able to go in and print off for her work excuse Please advise supportive care. If develops high fevers, bloody stool, bloody vomit or severe pain or unable to tolerate oral intake then may need to seek more urgent evaluation. Based on symptoms provided it is more likely she just has a viral gastrointestinal illness that will often improve within 1-2 days but sometimes can linger for about 3-5 days. If has significant red flag symptoms or not improving over the next 5 days then should be evaluated in office [employer] * Telephone Encounter - Andie Guo RN - 09/13/2023 11:04 AM CST Pt called vehicle assembly inspector with C/O vomiting, diarrhea and chills which started earlier this morning. She has not taken her temperature. Denies headache or dizziness. She is shaky and cold. She last vomited2 hours ago. Last episode of diarrhea 2 hours ago. Home Care. Pt needing note for missing work today. Requests note be emailed to her at: [email or web address] Care Advice Given: Small, frequent sips of non sugary drinks, BRAT diet Educated pt to call back if worsens, new symptoms develop or has further questions/concerns. Reason for Disposition Vomiting with diarrhea Protocols used: [id number] [employer] * Telephone Encounter - Andie Guo RN - 09/13/2023 10:55 AM CST Regarding: Chills, achy, vomited, diarrhea ----- Message from Jaquelin Carranza sent at 09/13/2023 10:55 AM DIRECTOR ORGANIZATIONAL ----- Symptom Based Call Chief Complaint(s): Chills, achy, vomited, diarrhea Duration: 3am this morning What type of symptom(s) is the patient experiencing? Non-Emergent. Is this a new or reoccurring symptom(s)? new What have you tried to help your symptom(s)? Drinking water but other than that not keeping food down Why was appointment not scheduled? Appointment availability did not meet the patient's need. Additional Comments: she believes it could be food poisoning but is not sure and wants to know nextsteps. Does message need to be routed? Yes-Action Needed [employer] documented in this encounter Plan of Treatment Not on file documented as of this encounter Visit Diagnoses Not on filedocumented in this encounter Care Teams Social Worker Delinquency Prevention Relationship Specialty Start Date End Date Zoe Garcia MD PCP - General Family Practice 03/22/22 Shasta Stone MD Obstetrics and Gynecology 02/10/22 8/2 08/09 documented as of this encounter
--- OUTSIDE RECORDS SUMMARY | 2024-07-18 00:06 | XMS_ITS | Encounter Summary ---
Author Organization [facility] Address [address] [place] [address] Care Team Providers Care Podiatrist Orthopedic Name Role Phone Shasta Stone MD Unavailable [phone] Zoe Gracia MD Primary Care Provider Encounter Details Date Type Department Care Team (Late st Contact Info) Description 02/06/2023 Telephone [facility] Gastroenterology at [address] [place] [address] Jerson Montenegro NP [address] [facility] [address] [place] [address] Social History Tobacco Use Types [...] 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 * Telephone Encounter - Adrianna Barrett MA - 02/06/2023 9:51 AM CDT ----- Message from Jerson Montenegro [...] on filedocumented in this encounter Care Teams Podiatrist Orthopedic Relationship Specialty Start Date End Date Zoe Garcia MD PCP - General Family Practice 03/22/22 Shasta Stone MD Obstetrics and Gynecology 02/10/22 8/08/09 documented as of this encounter
--- OUTSIDE RECORDS SUMMARY | 2024-07-18 00:06 | XMS_ITS | Encounter Summary ---
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 Hanna's message. Tamara called back and stated the order states expected date of 04/20/24. The order needs replaced with the expected date of January 2024. If the date is not corrected the test can not be scheduled until 04/2024 per the current order. Please advise * Telephone Encounter - Adrianna Barrett MA - 05/02/2023 1:58 PM CDT [facility] called stating that the MRI ABD/Pelvis would need to be changed to w/wo along with the expected date of 02/03/24. Last office note stated a 1 year repeat MRI. Please advise documented in this encounter Plan of Treatment Not on file documented as of this encounter Visit Diagnoses Not on filedocumented in this encounter Care Teams Fruit Shipper Relationship Specialty Start Date End Date Zoe Garcia MD PCP - General Family Practice 03/22/22 Shasta Stone MD Obstetrics and Gynecology 02/10/22 8/08/09 documented as of this encounter
--- OUTSIDE RECORDS SUMMARY | 2024-07-18 00:06 | XMS_ITS | Encounter Summary ---
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
--- OUTSIDE RECORDS SUMMARY | 2024-07-18 00:06 | XMS_ITS | Encounter Summary ---
Author Organization [facility] Healthcare Address [address] [place] [address] Care Team Providers Care Line Driver Name Role Phone Shasta Stone MD Unavailable [phone] Zoe Garcia MD Primary Care Provider Reason for Visit * Reason Comments Cough Symptoms x 9 days. 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 Not on file Not on file documented as of this encounter Last Filed Vital Signs Vital Sign Reading Time Taken Comments Blood Pressure 120/72 10/27/2023 8:16 AM CDT Pulse 71 10/27/2023 8:16 AM CDT Temperature 36.9 ??C (98.4 ??F) 10/27/2023 8:16 AM CD T Respiratory Rate 21 10/27/2023 8:16 AM CDT Oxygen Saturation 98% 10/27/2023 8:16 AM CDT Inhaled Oxygen Concentration - - Weight 98.9 kg (218 lb) 10/27/2023 8:16 AM CDT Height - - Body Mass Index 39.86 04/20/2023 9:11 AM CDT documented in this encounter Patient Instructions * Patient Instructions* Sylvie Butler, PUBLIC HEALTH TRAINING ASSISTANT - 10/27/2023 8:15 AM CDT Tessalon as prescribed for cough. Avoid irritants such as cigarette smoke, pollen, dust, etc as this will aggravate cough. Suck on cough drops or hard candies to soothe a dry or sore throat. Cough drops won't stop your cough, but they may make your throat feel better. Over the counter loratadine (Claritin) or cetirizine (Zyrtec) to reduce secretions. Mucinex to thin secretions Breathe moist air from a humidifier, a hot shower, or a sink filled with hot water. The heat and moisture can help keep mucus in your airways moist so you can cough it out easily. Use nonprescription medicine, such as acetaminophen, ibuprofen, or aspirin, to relieve fever and body aches. Don't give aspirin to anyone younger than age 20. Rest more than usual. Drink plenty of fluids so that you do not become dehydrated and to keep mucous thin. Use an czmv-tre-fcisfru cough medicine such as Delsym or Robitussin. (Cough medicines may not be safe for young children or for people who have certain health problems.) Cough suppressants may help you to stop coughing. Expectorants, such as Mucinex, can help you bring up mucus when you cough. Follow up with primary care physician in 1 week, or sooner if symptoms worsen. GO TO ER WITH ANY WORSENING OF SYMPTOMS INCLUDING, BUT NOT LIMITED TO: SUDDEN HIGH FEVER, DIFFICULTY BREATHING OR CATCHING YOUR BREATH, OR SHORTNESS OF BREATH. * Attachments The following attachments cannot be sent through Care Everywhere. * Acute Cough (Textile Chemist) (Cook Islander) documented in this encounter Ordered Prescriptions Prescription Sig Dispense Quantity Refills Last Filled Start Date End Date benzonatate (TESSALON) 200 mg capsuleIndications :Acute cough Take 1 capsule (200 mg total) by mouth 3 (three) times a day as needed for cough 30 capsule 10/27/2023 4 documented in this encounter Progress Notes * Sylvie Butler NP - 10/27/2023 8:15 AM CDT Images from the original note were not included. Patient ID: Valerie Real is a 28 y.o. female followed by Zoe Garcia MD Chief Complaint Patient presents with Cough Symptoms x 9 days. Productive cough, fever on 10/17 but nothing else Patient presents to the clinic with reports of productive cough and fever (resolved) for 9 days. Denies current fevers, chest pain, dizziness, difficulty breathing, rash, vomiting, and diarrhea. She has taken ibuprofen and tylenol for her symptoms. Review of Systems Constitutional: Positive for fever (resolved). Negative for chills and fatigue. HENT: Negative for congestion, ear pain, postnasal drip, rhinorrhea, sinus pressure and sore throat. Respiratory: Positive for cough. Negative for shortness of breath and wheezing. Cardiovascular: Negative for chest pain. Gastrointestinal: Negative for nausea. Musculoskeletal: Negative for myalgias. Neurological: Negative for headaches. Vitals: 10/27/23 0816 BP: 120/72 Pulse: 71 Resp: 21 Temp: 36.9 ??C (98.4 ??F) TempSrc: Oral SpO2: 98% Weight: 98.9 kg (218 lb) Physical Exam Vitals reviewed. Constitutional: General: She is not in acute distress. Appearance: Normal appearance. She is not ill-appearing. HENT: Head: Normocephalic. Right Ear: Tympanic membrane, ear canal and external ear normal. No middle ear effusion. Tympanic membrane is not erythematous or bulging. Left Ear: Tympanic membrane, ear canal and external ear normal. No middle ear effusion. Tympanic membrane is not erythematous or bulging. Nose: Congestion present. No rhinorrhea. Right Sinus: No maxillary sinus tenderness or frontal sinus tenderness. Left Sinus: No maxillary sinus tenderness or frontal sinus tenderness. Mouth/Throat: Lips: [place]. Mouth: Mucous membranes are moist. Pharynx: Uvula midline. No pharyngeal swelling, oropharyngeal exudate or posterior oropharyngeal erythema. Cardiovascular: Rate and Rhythm: Normal rate and regular rhythm. Pulmonary: Effort: Pulmonary effort is normal. No respiratory distress. Breath sounds: Normal breath sounds. No decreased breath sounds or wheezing. Comments: Cough observed during exam Lymphadenopathy: Cervical: No cervical adenopathy. Skin: General: Skin is warm. Neurological: Mental Status: She is oriented to person, place, and time. Psychiatric: Behavior: Behavior is cooperative. Diagnoses and all orders for this visit: Acute cough (Primary) - benzonatate (TESSALON) 200 mg capsule; Take 1 capsule (200 mg total) by mouth 3 (three) times a day as needed for cough No orders of the defined types were placed in this encounter. Assessment/Plan # acute upper respiatory infection --likely viral --exam findings warrant no antibiotics, antiviral, or steroid at this time --Efoo-iwq-wpoustf antihistamine such as Claritin or Zyrtec will aid in alleviation of symptoms such as nasal drainage and sinus drainage. Benadryl can be sedating, I suggest using it at bedtime. --Nasal spray, such as Flonase may also aid in nasal congestion. This may also be purchased over the counter. --ED presentation with one or more of the following symptoms: fever uncontrolled with antipyretics,shortness of breath, chest discomfort, uncontrolled n/v/d --f/u with PCP in 5-7 days if symptoms do not improve/worsen Disposition Treatment plan including expectations, follow up, and return precautions discussed with patient/parent, verbalizes understanding. Medication dosage, use, and potential adverse reactions discussed with patient/parent. Advised to follow up with PCP if symptoms do not resolve as expected or sooner if condition worsens. Discussed Signs/symptoms warranting ER evaluation including worsening fever, increased shortness ofbreath, chest pain, severe N/V/D, or any other worrisome symptoms Patient and/or guardian was given an opportunity to ask questions, questions answered. Patient Education Tessalon as prescribed for cough. Avoid irritants such as cigarette smoke, pollen, dust, etc as this will aggravate cough. Suck on cough drops or hard candies to soothe a dry or sore throat. Cough drops won't stop your cough, but they may make your throat feel better. Over the counter loratadine (Claritin) or cetirizine (Zyrtec) to reduce secretions. Mucinex to thin secretions Breathe moist air from a humidifier, a hot shower, or a sink filled with hot water. The heat and moisture can help keep mucus in your airways moist so you can cough it out easily. Use nonprescription medicine, such as acetaminophen, ibuprofen, or aspirin, to relieve fever and body aches. Don't give aspirin to anyone younger than age 20. Rest more than usual. Drink plenty of fluids so that you do not become dehydrated and to keep mucous thin. Use an wgxl-etz-mwramwt cough medicine such as Delsym or Robitussin. (Cough medicines may not be safe for young children or for people who have certain health problems.) Cough suppressants may help you to stop coughing. Expectorants, such as Mucinex, can help you bring up mucus when you cough. Follow up with primary care physician in 1 week, or sooner if symptoms worsen. GO TO ER WITH ANY WORSENING OF SYMPTOMS INCLUDING, BUT NOT LIMITED TO: SUDDEN HIGH FEVER, DIFFICULTY BREATHING OR CATCHING YOUR BREATH, OR SHORTNESS OF BREATH. Sylvie Butler NP This office note has been partially dictated using [employer] software, and as a result portions of the record may have been created with this software. Occasional wrong-word or 'kverl-a-oztc' substitutions may have occurred due to the inherent limitations of voice recognition software. Read the chartcarefully and recognize, using context, where substitutions have occurred. documented in this encounter Plan of Treatment Not on file documented as of this encounter Visit Diagnoses Diagnosis Acute cough- Primary documented in this encounter Care Teams Line Driver Relationship Specialty Start Date End Date Zoe Garcia MD PCP - General Family Practice 03/22/22 Shasta Stone MD Obstetrics and Gynecology 02/10/22 8/08/09 documented as of this encounter
--- OUTSIDE RECORDS SUMMARY | 2024-07-18 00:06 | XMS_ITS | Encounter Summary ---
Author Organization [facility] Healthcare Address [address] [place] [address] Care Team Providers Care Semi Truck Driver Name Role Phone Shasta Stone MD Unavailable [phone] Zoe Garcia MD Primary Care Provider Reason for Referral * MRI/CAT/PET Scan (Routine) - Closed Specialty Diagnoses / Procedures Referred By Tacos reyes Referred To Contact Radiology Diagnoses Liver lesion Procedures MRI Abdomen Liver WO Contrast MRI Abdomen Liver WO Contrast Hipolito Marin MD Phone: tel: fax: [address] [address] Referral ID Status Reason Start Date Expiration Date Visits Re quested Visits Authorized [id number] Closed 04/20/2023 05/19/2024 1 1 Reason for Visit * Reason Comments Follow-up Patient is being see n today for 3 month follow up for hepatic lesion. Patient has no concerns today. 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 Not on file Not on file documented as of this encounter Last Filed Vital Signs Vital Sign Reading Time Taken Comments Blood Pressure 105/72 04/20/2023 9:11 AM CDT Pulse 59 04/20/2023 9:11 AM CDT Temperature - - Respiratory Rate - - Oxygen Saturation 98% 04/20/2023 9:11 AM CDT Inhaled Oxygen Concentration - - Weight 93.9 kg (207 lb 1.6 oz) 04/20/2023 9:11 A M CDT Height 157.5 cm (5' 2.01 ) 04/20/2023 9:11 AM CD T Body Mass Index 37.87 04/20/2023 9:11 AM CDT documented in this encounter Progress Notes * Hipolito Marin MD - 04/20/2023 9:15 AM CDT FOLLOW-UP VISIT Chief Complaint Patient presents with Follow-up Patient is being seen today for 3 month follow up for hepatic lesion. Patient has no concerns today. SUBJECTIVE: HPI: Ms. Real is following up for Follow-up (Patient is being seen today for 3 month follow up for hepatic lesion. Patient has no concerns today.) Clinically the patient is doing well. She has no complaint. No nausea. No vomiting. No weight loss.Appetite normal. Energy is normal. She has previous tubal ligation. No smoking. No alcohol. Mother had pancreas cancer. Her uncle and aunt had other types of cancer she is not sure what type. MRI of the liver without contrast in January 2023, 0.2 cm liver lesion, questionable cyst versus smallhemangioma. CT urogram October 2022 noted with 2 mm lesion of cyst or hemangioma in the right lobe of the liver. ROS: GENERAL: no fever, appetite is good. RESPIRATORY: no shortness of breath, no cough. SKIN: no itching, no rash. EYES: no redness, no itching, no visual changes. Past Medical History: Diagnosis Date Anemia Anxiety Depression Hypothyroidism Keratosis pilaris Menorrhagia Past Surgical History: Procedure Laterality Date SALPINGECTOMY Bilateral 04/2022 WISDOM TOOTH EXTRACTION 2017 Patient Active Problem List Diagnosis Acquired hypothyroidism Anxiety and depression Iron deficiency anemia due to chronic blood loss Menorrhagia with regular cycle Class 2 obesity due to excess calories without serious comorbidity with body mass index (BMI) of 39.0 to 39.9 in adult IUD (intrauterine device) in place Annual visit for general adult medical examination with abnormal findings Other microscopic hematuria Liver lesion Current Outpatient Medications on File Prior to Visit Medication Sig Dispense Refill levothyroxine (SYNTHROID) 125 mcg tablet Take 1 tablet (125 mcg total) by mouth daily before breakfast 90 tablet 3 No current facility-administered medications on file prior to visit. Family History Problem Relation Age of Onset defects Mother COPD Mother Colon cancer Mother 50 Lung cancer Mother smoker Pancreatic cancer Mother Hypertension Father Stroke Father No Known Problems Brother Breast cancer Maternal Grandmother Stomach cancer Maternal Grandmother Pt unsure of diagnosis. Just had stomach issues Cancer Maternal Grandfather unsure of primary No Known Problems Paternal Grandmother Hypertension Paternal Grandfather Kidney cancer Mother's Brother Cervical cancer Mother's Sister Social History Tobacco Use Smoking status: Never Smokeless tobacco: None Substance and Sexual Activity Drug use: Never Sexual activity: Yes Partners: Male control/protection: Tubal Ligation Alcohol Use: Not At Risk (04/20/2023) AUDIT-C Frequency of Alcohol Consumption: Never Average Number of Drinks: Not on file Frequency of Binge Drinking: Not on file Allergies Allergen Reactions Amoxicillin Hives Clindamycin Hives, Itching and Rash Penicillins Hives Zithromax [Azithromycin] Rash OBJECTIVE: Vitals BP 105/72 (BP Location: Left arm, Patient Position: Sitting) Pulse 59 Ht 157.5 cm (5' 2.01 ) Wt 93.9 kg (207 lb 1.6 oz) SpO2 98% BMI 37.87 kg/m?? Exam: Patient is alert and oriented to time and place and self. BMI 37. Patient appears comfortable. Eyes: no jaundice. Lungs: CTA anteriorly. ENT: no mouth ulcers. GI: abdomen is soft, no distention, no tenderness, bowel sounds positive. Musculoskeletal: no joint swelling, no edema. Skin: no rash. Psych: mood seems anxious. No confusion. Labs and X Rays: - I reviewed all recent labs and X rays and endoscopy procedures. Hospital Outpatient Visit on 02/13/2023 Component Date Value Thyroid Stimulating Horm* 02/13/2023 1.88 GI Assessment & Plan: Diagnoses and all orders for this visit: Liver lesion (Primary) Assessment & Plan: Incidental finding with the CT urogram, 2 mm size. Followed by MRI stool considering the small sizepossibly small hemangioma or cyst. Patient was reassured about the benign nature of this finding. Patient refused to get CT with contrast for fear of reaction. I advised the patient to follow up in 1 year to plan MRI of the liver for follow-up evaluation. Orders: - MRI Abdomen Liver WO Contrast; Future Voice recognition software [employer] Direct was used dictate and transcribe this document. Dowel Setting Machine Operator variances may occur. Despite proofreading, typographical errors may occur. Hipolito Marin MD documented in this encounter Miscellaneous Notes * Assessment & Plan Note - Hipolito Marin MD - 05/01/2023 6:03 PM CDT Associated Problem(s): Liver hemangioma Incidental finding with the CT urogram, 2 mm size. Followed by MRI stool considering the small sizepossibly small hemangioma or cyst. Patient was reassured about the benign nature of this finding. Patient refused to get CT with contrast for fear of reaction. I advised the patient to follow up in 1 year to plan MRI of the liver for follow-up evaluation. * Addendum Note - Hipolito Marin MD - 04/20/2023 9:15 AM CDTAddended by: HIPOLITO MARIN on: 05/03/2023 01:51 PM Modules accepted: Orders documented in this encounter Plan of Treatment Scheduled Orders Name Type Priority Associated Diagnoses Orde r Schedule MRI Abdomen Liver WO Contrast Imaging Schedule Routine, Read Routine (OP Routine) Liver lesion Expected: 01/19/2024, Expires: 01/18/2025 documented as of this encounter Visit Diagnoses Diagnosis Liver lesion- Primary Other specified disorders of liver documented in this encounter Care Teams Semi Truck Driver Relationship Specialty Start Date End Date Zoe Garcia MD PCP - General Family Practice 03/22/22 Shasta Stone MD Obstetrics and Gynecology 02/10/22 8/2 08/09 documented as of this encounter
--- OUTSIDE RECORDS SUMMARY | 2024-07-18 00:06 | XMS_ITS | Encounter Summary ---
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 Not on file Not on file documented as of this encounter Medications at Time of Discharge levothyroxine (SYNTHROID) 125 mcg tabletIndications:Ac quired hypothyroidism Take 1 tablet (125 mcg total) by mouth daily before breakfast 90 tablet 3 02/13/2023 4 documented as of this encounter Discharge Disposition Disposition Code Departure Means Destination Discharge to home or self care documented in this encounter Plan of Treatment Not on file documented as of this encounter Procedures Procedure Name Priority Date/Time Associated Diagnosis Comments TSH Routine 02/13/2023 8:12 AM CDT Acquired hypothyroidism documented in this encounter Results * TSH (02/13/2023 8:12 AM CDT) Thyroid Stimulating Hormone 1.88 0.30 - 4.20 mcIUnit/mL LUISA CAREY Blood 02/13/2023 8:12 AM CDT 02/13/2023 2:31 PM CDT us Charmaine Leon MANAGED CARE PROVIDER LAB BLOOD ORDERABLES Final Resul t [facility] [address] Department [place] [address] documented in this encounter Visit Diagnoses Diagnosis Acquired hypothyroidism Unspecified hypothyroidism documented in this encounter Care Teams Assignment Editor Relationship Specialty Start Date End Date Zoe Garcia MD PCP - General Family Practice 03/22/22 Shasta Stone MD Obstetrics and Gynecology 02/10/22 8/2 08/09 documented as of this encounter
--- OUTSIDE RECORDS SUMMARY | 2024-07-18 00:06 | XMS_ITS | Encounter Summary ---
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 on file Not on file Not on file documented as of this encounter Ordered Prescriptions Prescription Sig Dispense Quantity Refills Last Filled Start Date End Date doxycycline (VIBRAMYCIN) 100 mg capsuleIndications: Acute non-recurrent sinusitis, unspecified location Take 1 tablet/caps ule (100 mg total) by mouth 2 (two) times a day for 7 days 14 tablet/capsule 11/02/2023 11/09/2023 documented in this encounter Progress Notes * Zoe Garcia MD - 11/02/2023 5:35 PM CDT [facility] Message Note This patient gave consent for this Medical Advice Message and is aware that it may result in a billto their insurance, as well as the possibility of receiving a bill. They are an established patientbut are not seeking information exclusively about a problem treated during an in-person or video visit in the last seven days. I did not recommend an in-person or video visit within the next seven days of my reply. See the [facility] message reply for my assessment and plan. I spent a total of 5 minutes reviewing the patient???s prior medical records and current request for medical advice, prescribing medications or ordering tests (if applicable), replying to the patientand documenting this encounter. Zoe Garcia MD documented in this encounter Plan of Treatment Not on file documented as of this encounter Visit Diagnoses Diagnosis Acute non-recurrent sinusitis, unspecified location- Primary documented in this encounter Care Teams Outpatient Coding Specialist Relationship Specialty Start Date End Date Zoe Garcia MD PCP - General Family Practice 03/22/22 Shasta Stone MD Obstetrics and Gynecology 02/10/22 8/2 08/09 documented as of this encounter
--- OUTSIDE RECORDS SUMMARY | 2024-07-18 00:07 | XMS_ITS | Encounter Summary ---
Author Organization [facility] Healthcare Address [address] [place] [address] Care Team Providers Care Commercial Analyst Name Role Phone Shasta Stone MD Unavailable [phone] Zoe Garcia MD Primary Care Provider Encounter Details Date Type Department Care Team (Latest Contact Info) Description 09/30/2022 10:59 AM CDT - 09/30/2022 11:59 PM CDT Hospital Encounter [facility] [address] [place] [address] Annual visit for general adult medical examination with abnormal findings; Iron deficiency anemia due to chronic blood loss; Acquired hypothyroidism; Screening for lipid disorders; Elevated fasting glucose; Other microscopic hematuria Discharge Disposition: Discharge to home or self care Social History Tobacco Use Types Packs/Day Years Used Date Smoking Tobacco: Former Cigarettes 0.1 2019 Alcohol Use Standard Drinks/Week Comments Never 0 (1 standard drink = 0.6 oz pur e alcohol) AUDIT-C Answer Date Recorded Q1: How often do you have a drink containing alcohol? Never 02/10/2022 Q2: How many drinks containi ng alcohol do you have on a typical day when you are drinking? Patient does not drink Q3: How often do you have si x or more drinks on one occasion? 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 Not on file Not on file documented as of this encounter Medications at Time of Discharge ferrous sulfate ER 324 mg (65 mg iron) EC tabletIndications:Ir on Deficiency Anemia Take 65 mg by mouth daily 3 levothyroxine (SYNTHROID) 100 mcg tabletIndications:Ac quired hypothyroidism Take 1 tablet (100 mcg total) by mouth daily before breakfast 90 tablet 1 03/25/2022 3 documented as of this encounter Discharge Disposition Disposition Code Departure Means Destination Discharge to home or self care documented in this encounter Plan of Treatment Not on file documented as of this encounter Procedures Procedure Name Priority Date/Time Associated Diagnosis Comments EGFR Routine 09/30/2022 10:59 AM CDT Annual visit for general adult medical examination with abnormal findings DIFFERENTIAL AUTO Routine 09/30/2022 10: 59 AM CDT Annual visit for general adult medical examination with abnormal findings Iron deficiency anemia due to chronic blood loss IRON PROFILE W/ IBC Routine 09/30/2022 1 0:59 AM CDT Annual visit for general adult medical examination with abnormal findings Iron deficiency anemia due to chronic blood loss URINALYSIS AND REFLEX TO MICROSCOPIC AND CULTURE Routine 09/30/2022 10:59 AM CDT Annual visit for general adult medical examination with abnormal findings Other microscopic hematuria CBC WITH AUTO DIFFERENTIAL Routine 09/30/2022 10:59 AM CDT Annual visit for general adult medical examination with abnormal findings Iron deficiency anemia due to chronic blood loss URINALYSIS, MICROSCOPIC ONLY Routine 09/30/2022 10:59 AM CDT Annual visit for general adult medical examination with abnormal findings Other microscopic hematuria TSH Routine 09/30/2022 10:59 AM CDT Annual visit for general adult medical examination with abnormal findings Acquired hypothyroidism HEMOGLOBIN A1C Routine 09/30/2022 10:59 AM CDT Annual visit for general adult medical examination with abnormal findings Elevated fasting glucose FERRITIN Routine 09/30/2022 10:59 AM CDT Annual visit for general adult medical examination with abnormal findings Iron deficiency anemia due to chronic blood loss LIPID PANEL Routine 09/30/2022 10:59 AM CDT Annual visit for general adult medical examination with abnormal findings Screening for lipid disorders COMPREHENSIVE METABOLIC PANEL Routine 09/30/2022 10:59 AM CDT Annual visit for general adult medical examination with abnormal findings documented in this encounter Results * eGFR (09/30/2022 10:59 AM CDT) [facility] eGFR 124 mL/min/1. 73 m2 LUISA CAREY Comment: Interpretive Data Reference Interval Normal ?>/= [...] interpretive data was last reviewed 2021. Blood 09/30/2022 10:5 9 AM CDT 09/30/2022 3:07 PM CDT Zoe Garcia MD LAB BLOOD ORDERABLES F inal Result Performing Organization Address [facility] de Phone Number LUISA CAREY [id number] Department [place] [address] * (ABNORMAL) Urinalysis, microscopic only (09/30/2022 10:59 AM CDT) WBC, ur 0-5 0 - 5 /HPF [facility] RBC, ur 6-10(A) 0 - 2 /HPF [facility] Epithelial cells, squamous, ur 1-5 0 - 5 /HPF [facility] Mucous, ur Present(A) [facility] Amorphous crystals, ur 2+(A) [facility] Culture Reflex Comment Reflex conditions for urine culture (WBC >10) not met. [facility] Urine, clean voided 09/30/2022 10:59 AM CDT 09/30/2022 3:05 PM CDT Zoe Garcia MD LAB URINE ORDERABLES F inal Result Performing Organization Address [facility] de Phone Number LUISA CAREY [address] [place] [address] * Differential, auto (09/30/2022 10:59 AM CDT) Neutrophil abs 3.4 1.7 - 6.5 K/cumm [facility] Imm gran abs 0.0 0.0 - 0.1 K/cumm [facility] Lymphocyte abs 2.0 0.8 - 3.3 K/cumm [facility] Monocyte abs 0.6 0.2 - 0.8 K/cumm [facility] Eosinophil abs 0.1 0.0 - 0.5 K/cumm [facility] Basophil abs 0.1 0.0 - 0.1 K/cumm [facility] Neutrophil pct 55.8 % [facility] Comment: Interpretive Data Percent cell count reference ranges are not reported, since discordance with absolute values may lead to misinterpretation of CBC data. Current Interpretive Data was last revised on 2017. Imm gran pct 0.3 % [facility] Comment: Interpretive Data Percent cell count reference ranges are not reported, since discordance with absolute values may lead to misinterpretation of CBC data. Current Interpretive Data was last revised on 2017. Lymphocyte pct 32.6 % [facility] Comment: Interpretive Data Percent cell count reference ranges are not reported, since discordance with absolute values may lead to misinterpretation of CBC data. Current Interpretive Data was last revised on 2017. Monocyte pct 9.2 % [facility] Comment: Interpretive Data Percent cell count reference ranges are not reported, since discordance with absolute values may lead to misinterpretation of CBC data. Current Interpretive Data was last revised on 2017. Eosinophil pct 1.3 % [facility] Comment: Interpretive Data Percent cell count reference ranges are not reported, since discordance with absolute values may lead to misinterpretation of CBC data. Current Interpretive Data was last revised on 2017. Basophil pct 0.8 % [facility] Comment: Interpretive Data Percent cell count reference ranges are not reported, since discordance with absolute values may lead to misinterpretation of CBC data. Current Interpretive Data was last revised on 2017. Blood 09/30/2022 10:5 9 AM CDT 09/30/2022 3:05 PM CDT Zoe Garcia MD LAB BLOOD ORDERABLES F inal Result [facility] [id number] Department [place] [address] * (ABNORMAL) Urinalysis reflex to microscopic and culture Urine, clean voided (09/30/2022 10:59 AM CDT) Color, ur Yellow Yellow [facility] Clarity, ur Clear Clear [facility] Specific gravity, ur 1.020 1.003 - 1.030 [facility] pH, urine 7.0 [facility] Protein, ur ql Negative Negative [facility] Glucose, ur ql Negative Negative [facility] Ketones, ur Negative Negative [facility] Bilirubin, ur Negative Negative [facility] Blood, ur 2+(A) Negative [facility] Urobilinogen, ur <2.0 <2.0 mg/dL [facility] Nitrite, ur Negative Negative [facility] Leukocyte esterase, ur Negative Negative [facility] UA reflex comment Reflex to microscopic UA will be performed. [facility] Urine, clean voided 09/30/2022 10:59 AM CDT 09/30/2022 3:05 PM CDT Narrative [facility] - 09/30/2022 3:16 PM CDT ?? Urine pH is affected by diet, medications, systemic acid-base disturbances, and renal tubular function. ??pH may affect urinary stone formation. ??For example, urine pH below 6.0 may help reduce the tendency for calcium phosphate stones and pH greater than 6.0 may reduce the tendency for uric acid stone formation. Source: [facility] [employer] Last revised 07-27-2017 Zoe Garcia MD LAB MICROBIOLOGY - GEN ERAL ORDERABLES Final Result [facility] [address] Department [place] [address] * Comprehensive metabolic panel (09/30/2022 10:59 AM CDT) Sodium 141 135 - 145 mmol/L [facility] Potassium, pl 4.3 3.3 - 4.9 mmol/L [facility] Chloride 106 97 - 110 mmol/L [facility] CO2 26 22 - 32 mmol/L [facility] Anion gap 9 2 - 15 mmol/L [facility] BUN 10 8 - 25 mg/dL [facility] Creatinine 0.67 0.60 - 1.10 mg/dL [facility] Glucose 89 70 - 199 mg/dL [facility] Comment: Interpretive Data Fasting glucose >/= 126 [...] interpretive data was last revised 2022. Calcium 9.5 8.5 - 10.3 mg/dL [facility] Bilirubin, total 0.5 0.1 - 1.2 mg/dL [facility] Protein, pl 7.9 6.5 - 8.5 g/dL [facility] Albumin 4.2 3.5 - 5.0 g/dL [facility] Alk phos 86 40 - 130 Units/L [facility] ALT 16 7 - 45 Units/L [facility] AST 21 10 - 45 Units/L [facility] Blood 09/30/2022 10:5 9 AM CDT 09/30/2022 3:05 PM CDT Zoe Garcia MD LAB BLOOD ORDERABLES F inal Result Performing Organization Address [facility] de Phone Number LEIDAOLENA [address] [place], [place] [id number] * Hemoglobin A1c (09/30/2022 10:59 AM CDT) [facility] Hgb A1C 5.3 4.0 - 5.6 % [facility] Estimated Average Glucose 105 mg/dL [facility] Comment: The ADA recommends reporting an estimated Average Glucose (eAG) with all Hemoglobin A1c results using the equation derived from a study of 507 normal and diabetic adults. ??Minority populations were underrepresented and children were not included. ?? (Diabetes Care 31:9702-6820, 2008). ??The eAG is not equivalent to a fasting glucose. Blood 09/30/2022 10:5 9 AM CDT 09/30/2022 3:05 PM CDT Zoe Garcia MD LAB BLOOD ORDERABLES F inal Result Performing Organization Address [facility] Co de Phone Number [facility] [address] [place], [place] [id number] * Lipid panel (09/30/2022 10:59 AM CDT) [facility] Signature Cholesterol 138 30 - 199 mg/dL LUISA CAREY Comment: Interpretive Data Ages < or = 19 years ??Acceptable: ? <170 mg/dL ??Borderline high: ??170-199 mg/dL ??High: ? >or= 200 mg/dL Ages > or = 20 years ??Desirable: ?<200 mg/dL ??Borderline high: ??200-239 mg/dL ??High: ? >or= 240 mg/dL Literature References: 1. Expert Panel on Integrated Guidelines for Cardiovascular Health and Risk Reduction in Children and Adolescents. Pediatrics 2011;128:S213 2. NCEP Expert Panel. Circulation 2004;110:227 Current Interpretive Data was last revised on 2018. Triglycerides 81 <=149 mg/dL LUSIA CAREY Comment: Interpretive Data Ages < or = 9 years ??Acceptable: ? <75 mg/dL ??Borderline high: ??75-99 mg/dL ??High: ? >or= 100 mg/dL Ages 10 to 20 years ??Acceptable: ? <90 mg/dL ??Borderline high: ??90-129 mg/dL ??High: ? >or= 130 mg/dL Ages > or = 20 years ??Desirable: ?<150 mg/dL ??Borderline high: ??150-199 mg/dL ??High: ? 200-499 mg/dL ?Very high: ?? >or= 499 mg/dL Literature References: 1. Expert Panel on Integrated Guidelines for Cardiovascular Health and Risk Reduction in Children and Adolescents. Pediatrics 2011;128:S213 2. NCEP Expert Panel. Circulation 2004;110:227 Current Interpretive Data was last revised on 2018. HDL 42 >=40 mg/dL LUISA CAREY Comment: Interpretive Data Ages < or = 19 years ??Acceptable: ? >45 mg/dL ??Borderline low: ?? 40-45 mg/dL ??Low: ? <40 mg/dL Ages > or = 20 years ??Desirable: ?>or= 60 mg/dL ??Low: ? <40 mg/dL Literature References: 1. Expert Panel on Integrated Guidelines for Cardiovascular Health and Risk Reduction in Children and Adolescents. Pediatrics 2011;128:S213 2. NCEP Expert Panel. Circulation 2004;110:227 Current Interpretive Data was last revised on 2018. LDL, calculated 80 <=129 mg/dL LUISA CAREY Comment: Interpretive Data Ages < or = 19 years ??Acceptable: ? <110 mg/dL ??Borderline high: ??110-129 mg/dL ??High: ?>or= 130 mg/dL Ages > or = 20 years ??Optimal: ? <100 mg/dL ??Near optimal: ?100-129 mg/dL ??Borderline high: ?? 130-159 mg/dL ??High: ?>160 mg/dL Literature References: 1. Expert Panel on Integrated Guidelines for Cardiovascular Health and Risk Reduction in Children and Adolescents. Pediatrics 2011;128:S213 2. NCEP Expert Panel. Circulation 2004;110:227 Current Interpretive Data was last revised on 2018. Non-HDL Cholesterol 96 mg/dL LUISA CAREY Comment: Interpretive Data Ages < or = 19 years ??Acceptable: ?<120 mg/dL ??Borderline high: ??120-144 mg/dL ??High: ?>145 mg/dL Ages > or = 20 years ??When triglycerides are >200 mg/dL, Non-HDL cholesterol is a secondary target of ? therapy with treatment goals that are 30 mg/dL greater than the LDL cholesterol target. ? Literature References: 1. Expert Panel on Integrated Guidelines for Cardiovascular Health and Risk Reduction in Children and Adolescents. Pediatrics 2011;128:S213 2. NCEP Expert Panel. Circulation 2004;110:227 Current Interpretive Data was last revised on 2018. Chol/HDL ratio 3 [facility] Blood 09/30/2022 10:5 9 AM CDT 09/30/2022 3:05 PM CDT Zoe Garcia MD LAB BLOOD ORDERABLES F inal Result Performing Organization Address [facility]/ZIP Co de Phone Number LUISA CAREY [address] [place] [address] * CBC with auto differential (09/30/2022 10:59 AM CDT) WBC 6.2 3.8 - 9.9 K/cumm [facility] Hgb 13.7 11.9 - 15.5 g/dL [facility] Hct 41.4 35.6 - 45.5 % [facility] Plt 368 150 - 400 K/cumm [facility] MPV 10.3 9.1 - 12.3 fL [facility] RBC 4.40 3.90 - 5.20 M/cumm [facility] MCV 94.1 81.3 - 96.4 fL [facility] MCH 31.1 27.1 - 33.3 pg [facility] MCHC 33.1 32.3 - 35.7 g/dL [facility] RDW CV 12.9 11.1 - 14.9 % [facility] RDW SD 44.5 35.7 - 48.1 fL [facility] NRBC abs 0.00 0.00 - 0.01 K/cumm [facility] Blood 09/30/2022 10:5 9 AM CDT 09/30/2022 3:05 PM CDT us Zoe Garcia MD LAB BLOOD ORDERABLES F inal Result Performing Organization Address [facility]/ZIP Co de Phone Number LUISA CAREY [address] [facility] [place] [address] * (ABNORMAL) TSH (09/30/2022 10:59 AM CDT) Thyroid Stimulating Hormone 4.48(H) 0.30 - 4.20 mcIUnit/mL [facility] Blood 09/30/2022 10:5 9 AM CDT 09/30/2022 3:05 PM CDT us Zoe Garcia MD LAB BLOOD ORDERABLES F inal Result Performing Organization Address [facility] de Phone Number LUISA [phone] [place] [address] * Iron profile w/ IBC (09/30/2022 10:59 AM CDT) Iron 135 35 - 145 mcg/dl [facility] TIBC 285 250 - 400 mcg/dL [facility] Transferrin saturation 47 20 - 50 % [facility] Blood 09/30/2022 10:5 9 AM CDT 09/30/2022 3:05 PM CDT Zoe Garcia MD LAB BLOOD ORDERABLES F inal Result Performing Organization Address [facility] Co de Phone Number LUISA [address] [place] [address] * Ferritin (09/30/2022 10:59 AM CDT) Ferritin 86 15 - 150 ng/mL [facility] Blood 09/30/2022 10:5 9 AM CDT 09/30/2022 3:05 PM CDT Zoe Garcia MD LAB BLOOD ORDERABLES F inal Result Performing Organization Address [facility] de Phone Number LUISA [address] [place] [address] documented in this encounter Visit Diagnoses Diagnosis Annual visit for general adult medical examination with abnormal findings Iron deficiency anemia due to chronic blood loss Iron deficiency anemia secondary to blood loss (chronic) Acquired hypothyroidism Unspecified hypothyroidism Screening for lipid disorders Elevated fasting glucose Impaired fasting glucose Other microscopic hematuria documented in this encounter Care Teams Commercial Analyst Relationship Specialty Start Date End Date Zoe Garcia MD PCP - General Family Practice 03/22/22 Shasta Stone MD Obstetrics and Gynecology 02/10/22 8/2 08/09 documented as of this encounter
--- OUTSIDE RECORDS SUMMARY | 2024-07-18 00:07 | XMS_ITS | Encounter Summary ---
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
--- OUTSIDE RECORDS SUMMARY | 2024-07-18 00:07 | XMS_ITS | Encounter Summary ---
Author Organization [facility] Address [address] [place] [address] Care Team Providers Care Scrap Charger Name Role Phone Shasta Stone MD Unavailable [phone] Zeo Garcia MD Primary Care Provider Reason for Visit * Reason Comments New Patient New patient referral for Liver lesion. Patient doing well with no symptoms to report today. * Consultation (Routine) - Closed Specialty Diagnoses / Procedures Referred By Contac t Referred To Contact Gastroenterology Diagnoses Liver lesion Zoe Garcia MD Phone: tel: fax: [facility] Gastroenterology at [address] [place] [address] Phone: tel: fax: Referral ID Status Reason Start Date Expiration Date V isits Requested Visits Authorized [id number] Closed Specialty Services Required 10/21/2022 11/20/2023 10 10 Encounter Details Date Type Department Care Team (Latest Contact Info) Description 01/09/2023 8:00 AM CDT Office Visit [facility] Gastroenterology at [address] [place] [address] Jerson Montenegro NP [address] [place] [address] [address] [place] [address] Hepatic lesion (Primary Dx); Family history of pancreatic cancer; Family history of colorectal cancer Social History Tobacco Use Types Packs/Day Years [...] 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 Not on file Not on file documented as of this encounter Last Filed Vital Signs Vital Sign Reading Time Taken Comments Blood Pressure 118/72 01/09/2023 7:48 AM CDT Pulse 71 01/09/2023 7:48 AM CDT Temperature - - Respiratory Rate - - Oxygen Saturation 98% 01/09/2023 7:48 AM CDT Inhaled Oxygen Concentration - - Weight 98.9 kg (218 lb) 01/09/2023 7:48 AM CDT Height 157.5 cm (5' 2 ) 01/09/2023 7:48 AM CDT Body Mass Index 39.87 01/09/2023 7:48 AM CDT documented in this encounter Patient Instructions * Patient Instructions* Jerson Montenegro NP - 01/09/2023 8:00 AM CDT Please do blood work at your convenience. You do not have to be fasting. Scheduling will reach out to you to set up the MRI, but if for some reason you are not able to fully completed, will repeat ultrasound at the three month point, in six months to monitor for stability/changes. Your next office visit will be with Dr. Hanna in three months. documented in this encounter Progress Notes * Jerson Montenegro NP - 01/09/2023 8:00 AM CDT Images from the original note were not included. PATIENT DEMOGRAPHICS Valerie Real is a 27 y.o. White female. PATIENT'S CARE TEAM Patient Care Team: Zoe Garcia MD as PCP - General (Family Practice) Shasta Stone MD (Obstetrics and Gynecology) CHIEF COMPLAINT Chief Complaint Patient presents with ??? New Patient New patient referral for Liver lesion. Patient doing well with no symptoms to report today. HPI/ROS New or existing patient visit: New. Referring Provider: Zoe Garcia* Valerie is here today to establish care for her GI health and for evaluation of an incidental finding of a small hepatic lesion on CT urogram in October as follows: 10/18/22- CT Urogram wo contrast 3D: No urinary or gallbladder findings noted. Incidentally noted wasa tiny subcentimeter hypodensity within the lateral right hepatic lobe that was too small to adequately characterize but likely representing a benign cyst or hemangioma. No cystic or solid masses identified. Liver enzymes were normal 10/06. Statistically speaking, the lesion is likely completely benign, including a cyst or hemangioma. However, patient is concerned about the possibility of cancer as a lot of cancer runs in her family, but not specifically liver cancer. Denies smoking, drug use, and alcohol use. No yellowing of the eyesor skin. No dark colored urine or light-colored stools. No abdominal pain or swelling. No heartburn, reflux, nausea, vomiting, constipation, diarrhea, melena, hematochezia, or bowel habit changes. It looks like her mom had pancreatic, lung, and colon cancer diagnosed around age 50, so I do understand patient's concerns. Maternal grandmother potentially may have had stomach cancer. Also had breast cancer. PHYSICAL EXAM BP 118/72 (BP Location: Left arm, Patient Position: Sitting) Pulse 71 Ht 157.5 cm (5' 2 ) Wt 98.9 kg (218 lb) SpO2 98% BMI 39.87 kg/m?? No LMP recorded. (Menstrual status: IUD). Positive responses are italicized. Constitutional: No acute distress/sickly appearance. HENT: Normocephalic/atraumatic; mucous membranes moist; oropharynx is clear; no posterior oropharyngeal erythema. Eyes: No scleral icterus. Neck: No thyroid mass/obvious thyromegaly. Trachea midline. No obvious lymphadenopathy. Cardiovascular: Normal rate and regular rhythm; no murmur heard; no leg edema. Pulmonary: Pulmonary effort and breath sounds normal. Abdominal: Bowel sounds active; abdomen is soft/non-distended. No abdominal tenderness; no rebound;no guarding. No obvious hernia identified. Skin: No jaundice or significant pallor. No rash. Neurological: Alert and oriented to person, place, time. Psychiatric: Mood/behavioral normal. TESTS/LABS/PROCEDURES (not all inclusive) 10/18/22- CT Urogram wo contrast 3D: No urinary or gallbladder findings noted. Incidentally noted wasa tiny subcentimeter hypodensity within the lateral right hepatic lobe that was too small to adequately characterize but likely representing a benign cyst or hemangioma. No cystic or solid masses identified. Liver enzymes were normal 10/06. GI ASSESSMENT/PLAN (K76.9) Hepatic lesion (primary encounter diagnosis) -Ambulatory referral to Gastroenterology, Incidental finding on KUB CT in October. Statistically likely a hemangioma versus a cyst, but regardless is most likely benign in nature. Patient is super concerned about a malignant process. I provided her the option of repeating ultrasound at six month point verses doing an MRI and she would like to proceed with MRI (however she is concerned about the contrast being used; reassurance offered). Iffor some reason she is unable to fully complete the MRI, will repeat ultrasound at the six month point, to monitor lesion for stability/changes. Will check CMP, AFP, and acute hepatitis panel to be on the safe side. I have a strong suspicion that I am going to have difficulty convincing her that this is a benign lesion that does not require any additional follow-up, especially once all testing iscompleted so will make her next follow-up with Dr. Hanna as I am hopeful that he will be able to provide her with a little more peace of than I am able to do. (Z80.0) Family history of pancreatic and colorectal cancer in her mother Recommend an every five year surveillance colonoscopy schedule, starting with colonoscopy screeningat age 35-40 for patient. Orders Placed This Encounter ??? MRI Abdomen Liver W WO Contrast Standing Status: Future Standing Expiration Date: 01/10/2024 Order Specific Question: Is the patient on dialysis? Answer: No Order Specific Question: Clinical question to be answered: Answer: any concerns for liver mass being cancerous? Order Specific Question: Is the patient ? Answer: Unknown Order Specific Question: Is patient claustrophobic? Answer: No Order Specific Question: Is patient able to lie flat for at least one hour? Answer: Yes Order Specific Question: Where should this order be performed? Answer: [facility] [144] Order Specific Question: Does the patient have a cardiovascular implantable electronic device, pacemaker, or implantable cardioverter-defibrillator? Answer: Unknown Order Specific Question: Does the patient have a programmable shunt? Answer: Unknown ??? Comprehensive metabolic panel Standing Status: Future Standing Expiration Date: 01/10/2024 ??? [id number], Tumor Marker Standing Status: Future Standing Expiration Date: 01/10/2024 ??? Hepatitis panel, acute Standing Status: Future Standing Expiration Date: 01/10/2024 Return in about 3 months (around 04/11/2023) for Dr. Hanna for hepatic lesion. Medication(s) and/or immunization(s) uses and side effects briefly discussed. Patient verbalizes understanding of all instructions provided today and agrees with plan. Total time spent on the date of the hykk-tq-ztsv encounter, including both jgmg-bc-dmuv time (including staff/provider time spent providing education) and aky-rjnz-tc-face time (pre-charting, reviewing chart, post-charting) was 31 minutes. This note is dictated and transcribed by [employer]. Make Up Editor variances may occur. Despite proofreading, typographical errors may occur. My collaborating physician is Dr. Hipolito Hanna-Gastroenterology. Jerson Montenegro NP documented in this encounter Plan of Treatment Not on file documented as of this encounter Results * Hepatitis panel, acute (01/09/2023 8:03 AM CDT) Hep A IgM Nonreactive Nonreactive [facility] ([facility]) Comment: Interpretive Data: If Hep A IgM Ab is reported as Equivocal, a new sample should be drawn in two weeks for testing. Current interpretive data was last revised on 19. Testing performed by: [facility], [address] [place] [address]., [id number] Hep B core IgM Nonreactive Nonreactive C [facility] ([place]) Comment: Interpretive Data If HepB Core IgM Ab is reported as Equivocal, a new sample should be drawn in two weeks for testing. Current interpretive data was last revised on 19. Testing performed by: [facility], [address] [place] [address]., [id number] Hep C Ab Nonreactive Nonreactive [facility] [...] last revised on 2019. Testing performed by: [facility], [address] [place] [address]., [id number] HepBsAg Nonreactive Nonreactive [facility] ([facility]) Comment:Testing performed by : [address] [id number] Blood 01/09/2023 8:0 3 AM CDT 01/09/2023 2:08 PM CDT us Jerson Montenegro VICE PRESIDENT QUALITY LAB MICROBIOLOGY - GENERAL ORDERABLES Final Result [facility] ([facility]) [address] [facility] Department of Laboratories [place], [place] [id number] * Bhnmj-0-[id number], Tumor Marker (01/09/2023 8:03 AM CDT) alpha Fetoprotein <2.0 <=8.3 ng/mL [facility] ([facility]) Comment: Interpretive Data The Norma AFP assay procedure was used. Results from different manufacturers or methods may not be comparable. Serial testing should be performed using the same method. 0-1 ??month. ?? AFP concentrations may reach or exceed 100,000 ng/mL after depending on gestational age and weight. 1-3 months ? 50 ? 1000 ng/ml 3-6 months ? 10 ? 500 ng/ml 6-12 months ?3.0 ? 100 ng/ml >1 year ?0.0 ? 8.3 ng/ml References Radha Padgett et al. ??J. Ped Surg 1978;13:155-156 Ranjeet S. et al. Clin Chem Lab Med 2018;57:783-797 Ladariusjuancarlos Parker et al. ??Clin Chem 2014;6477-0105. Current interpretive data was last revised 2022. Testing performed by: [facility], [address] [facility] [place]., [address] Blood 01/09/2023 8:03 AM CDT 01/09/2023 3:02 PM CDT Jerson Montenegro VICE PRESIDENT QUALITY LAB BLOOD ORDERABLE S Final Result [facility] ([facility]) [address] [facility] Department of Laboratories [place], [place] [id number] * (ABNORMAL) Comprehensive metabolic panel (01/09/2023 8:03 AM CDT) Sodium 137 135 - 145 mmol/L [facility] Potassium, pl 4.6 3.3 - 4.9 mmol/L [facility] Chloride 103 97 - 110 mmol/L [facility] ([facility]) CO2 25 22 - 32 mmol/L [facility] ([facility]) Anion gap 10 2 - 15 mmol/L [facility] BUN 9 6 - 25 mg/dL [facility] Creatinine 0.59(L) 0.60 - 1.10 mg/dL [facility] ([facility]) Glucose 92 70 - 199 mg/dL [facility] ([facility]) Comment: Interpretive Data Fasting glucose >/= 126 [...] interpretive data was last revised 2022. Calcium 9.1 8.5 - 10.3 mg/dL [facility] ([facility]) Bilirubin, total 0.3 0.1 - 1.2 mg/dL [facility] ([facility]) Protein, pl 7.5 6.5 - 8.5 g/dL [facility] ([facility]) Albumin 3.8 3.5 - 5.0 g/dL [facility] ([facility]) Alk phos 83 40 - 130 Units/L [facility] ([facility]) ALT 8 7 - 45 Units/L [facility] ([facility]) AST 16 10 - 45 Units/L [facility] ([facility]) Blood 01/09/2023 8:03 AM CDT 01/09/2023 10:57 AM CDT us Jerson Montenegro VICE PRESIDENT QUALITY LAB BLOOD ORDERABLE S Final Result [facility] ([facility]) [address] [facility] Department [place] [address] documented in this encounter Visit Diagnoses Diagnosis Hepatic lesion- Primary Family history of pancreatic cancer Family history of malignant neoplasm of gastrointestinal tract Family history of colorectal cancer documented in this encounter Discontinued Medications Medication Sig Discontinue Reason Start Date End Da te famotidine (PEPCID) 20 mg tabletIndications:Gastr oesophageal reflux disease without esophagitis Take 1 tablet (20 mg total) by mouth 2 (two) times a day as needed for heartburn 11/04/2022 01/09/2023 documented as of this encounter Orders Outpatient Referral Count Last Ordered Date Fir st Ordered Date AMB REFERRAL TO GASTROENTEROLOGY 1 01/10/20 23 documented in this encounter Care Teams Scrap Charger Relationship Specialty Start Date End Date Zoe Garcia MD PCP - General Family Practice 03/22/22 Shasta Stone MD Obstetrics and Gynecology 02/10/22 8/08/09 documented as of this encounter
--- OUTSIDE RECORDS SUMMARY | 2024-07-18 00:07 | XMS_ITS | Encounter Summary ---
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 Not on file Not on file documented as of this encounter Medications at Time of Discharge famotidine (PEPCID) 20 mg tabletIndications:Ga stroesophageal reflux disease without esophagitis Take 1 tablet (20 mg total) by mouth 2 (two) times a day as needed for heartburn 60 tablet 3 11/04/2022 3 levothyroxine (SYNTHROID) 125 mcg tabletIndications:Ac quired hypothyroidism Take 1 tablet (125 mcg total) by mouth daily before breakfast Repeat thyroid level on file to be done at the labs sometime in January (6 weeks) 30 tablet 1 12/19/2022 3 levothyroxine (SYNTHROID) 125 mcg tabletIndications:Ac quired hypothyroidism Take 1 tablet (125 mcg total) by mouth daily before breakfast Repeat thyroid level on file to be done at the labs sometime in January (6 weeks) 30 tablet 1 12/21/2022 3 documented as of this encounter Discharge Disposition Disposition Code Departure Means Destination Discharge to home or self care documented in this encounter Plan of Treatment Not on file documented as of this encounter Procedures Procedure Name Priority Date/Time Associated Diagnosis Comments TSH Routine 12/19/2022 8:46 AM CDT Acquired hypothyroidism documented in this encounter Results * (ABNORMAL) TSH (12/19/2022 8:46 AM CDT) Thyroid Stimulating Hormone 4.85(H) 0.30 - 4.20 mcIUnit/mL [facility] Blood 12/19/2022 8:46 AM CDT 12/19/2022 2:29 PM CDT us Zoe Garcia MD LAB BLOOD ORDERABLES F inal Result [facility] [address] Department [place] [address] documented in this encounter Visit Diagnoses Diagnosis Acquired hypothyroidism Unspecified hypothyroidism documented in this encounter Care Teams Breaker Off Relationship Specialty Start Date End Date Zoe Garcia MD PCP - General Family Practice 03/22/22 Shasta Stone MD Obstetrics and Gynecology 02/10/22/08/09 documented as of this encounter
--- OUTSIDE RECORDS SUMMARY | 2024-07-18 00:07 | XMS_ITS | Encounter Summary ---
Author Organization [facility] Address [address] [place] [address] Care Team Providers Care Residential Sales Representative Name Role Phone Shasta Stone MD Unavailable [phone] Zoe Garcia MD Primary Care Provider Reason for Visit * Reason Onset Date Comments Order for CT being changed 10/10/2022 Encounter Details Date Type Department Care Team (Late st Contact Info) Description 10/10/2022 Telephone [facility] Primary Care at [address] [address] Zoe Garcia MD [address] [place] [address] [address] [place] [address] being changed Social History Tobacco Use Types Packs/Day Years [...] 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 That was what I originally tried to order but it came up as something different. Order cosigned * Telephone Encounter - Otis Hurtado - 10/10/2022 11:02 AM CDT Debbie Renteria [place] called and is going to change the order for this patient to A [facility]oug[facility]. Thisexam is the exact same as what was originally ordered. She will change it and send back for you to sign off on. If you have questions please call [phone] documented in this encounter Plan of Treatment Not on file documented as of this encounter Visit Diagnoses Not on filedocumented in this encounter Care Teams Residential Sales Representative Relationship Specialty Start Date End Date Zoe Garcia MD PCP - General Family Practice 03/22/22 Shasta Stone MD Obstetrics and Gynecology 02/10/22 84 08/09 documented as of this encounter
--- OUTSIDE RECORDS SUMMARY | 2024-07-18 00:07 | XMS_ITS | Encounter Summary ---
Author Organization [facility] Healthcare Address [address] [place] [address] Care Team Providers Care Principal Security Architect Name Role Phone Shasta Stone MD Unavailable [phone] Zoe Garcia MD Primary Care Provider Reason for Visit * MRI/CAT/PET Scan (Routine) - Closed Specialty Diagnoses / Procedures Referred By Tacos reyes Referred To Contact Radiology Diagnoses Hepatic lesion Procedures MRI Abdomen Liver WO Contrast MRI Abdomen Liver W WO Contrast Jerson Montenegro NP Phone: tel: fax: [address] [address] Referral ID Status Reason Start Date Expiration Date Visits Re quested Visits Authorized [id number] Closed 01/09/2023 02/08/2024 1 1 Encounter Details Date Type Department Care Team (Latest Contact Info) Description 02/02/2023 8:35 AM CDT - 02/02/2023 11:59 PM CDT Hospital Encounter [facility] [address] [place] [id number] Hepatic lesion Discharge Disposition: Discharge to home or self [...] 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 Not on file Not on file documented as of this encounter Medications at Time of Discharge levothyroxine (SYNTHROID) 125 mcg tabletIndications:Ac quired hypothyroidism Take 1 tablet (125 mcg total) by mouth daily before breakfast Repeat thyroid level on file to be done at the labs sometime in January (6 weeks) 90 tablet 01/09/2023 3 documented as of this encounter Discharge Disposition Disposition Code Departure Means Destination Discharge to home or self care documented in this encounter Miscellaneous Notes * Result Encounter Note - Jerson Montenegro NP - 02/02/2023 11:59 PM CDT Please call patient with MRI results. The [...] Procedure Name Priority Date/Time Associated Diagnosis Comments MRI ABDOMEN LIVER WO CONTRAST Schedule Routine, Read Routine (OP Routine) 02/02/2023 9:41 AM CDT Hepatic lesion documented in this encounter Results * MRI Abdomen Liver WO Contrast (02/02/2023 9:41 AM CDT) Anatomical Region Laterality Modality Body N/A Magnetic Resonan ce 02/03/2023 12:5 9 PM CDT Narrative 02/03/2023 1:05 PM CDT EXAM DESCRIPTION: ?? MRI ABDOMEN LIVER WO CONTRAST REASON FOR STUDY: CT urogram performed October 18 2022 demonstrated a indeterminate hepatic lesion. ??MRI is being performed for further characterization. TECHNIQUE: MRI of the abdomen performed without intravenous contrast according to the ?? liver ??protocol. All images stored on PACS. ? COMPARISON: ?? CT dated October 18, 2022 REFERENCE: Per ACR white paper recommendations, unless otherwise specified no follow-up imaging is recommended for incidental renal and adrenal lesions per consensus recommendations based on imaging criteria. Further lab evaluation could be pursued based on clinical findings. FINDINGS: LOWER CHEST: ?? No effusion. LIVER: ?? The liver is normal in size. ??Involving the right hepatic lobe laterally there is a 0.2 cm T2 hyperintense focus (series 501, image 17). ?? This is too small to adequately characterize however given the appearance and patient's age statistically most likely represents a cyst or hemangioma. GALLBLADDER: ??No stones, wall thickening or pericholecystic fluid. BILE DUCTS: ?? No intrahepatic or extrahepatic ductal dilatation. SPLEEN: ?? Normal size. ??No focal lesions. PANCREAS: ?? No masses. No adjacent inflammation or peripancreatic fluid collections. Pancreatic duct not dilated. ADRENALS: ?? Normal. KIDNEYS/URINARY TRACT: ?? No solid masses. No cysts. No hydronephrosis or hydroureter. ?? GI: ?? No visualized abnormality. PERITONEUM: ?? No ascites. RETROPERITONEUM: ?? No mass or adenopathy. VASCULATURE: ?? No abdominal aortic aneurysm. MUSCULOSKELETAL: ?? No acute findings. OTHER: ?? No other abnormality. IMPRESSION: Right hepatic lobe laterally 0.2 cm T2 hyperintense focus, too small to adequately characterize however given the appearance and patient's age cyst statistically most likely represents a cyst or hemangioma. THIS IS AN ELECTRONICALLY VERIFIED FINAL REPORT 02/03/2023 1:05 PM - Electronically signed by ??Pawel Kenny M.D. JA: ALANIS D: ??02/03/2023 1:05 PM T: ??02/03/2023 1:05 PM Report ID: [id number] Reading Location: ??[id number] Procedure Note Pawel Kenny MD - 02/03/2023 EXAM DESCRIPTION: MRI ABDOMEN LIVER WO CONTRAST REASON FOR STUDY: CT urogram performed October 18 2022 demonstrated a indeterminate hepatic lesion. MRI is being performed for further characterization. TECHNIQUE: MRI of the abdomen performed without intravenous contrastaccording to the liver protocol. All images stored on PACS. COMPARISON: CT dated October 18, 2022 REFERENCE: Per ACR white paper recommendations, unless otherwise specifiedno follow-up imaging is recommended for incidental renal and adrenal lesionsper consensus recommendations based on imaging criteria. Further labevaluation could be pursued based on clinical findings. FINDINGS: LOWER CHEST: No effusion. LIVER: The liver is normal in size. Involving the right hepatic lobe laterally there is a 0.2 cm T2 hyperintense focus (series 501, image 17). This is too small to adequately characterize however given the appearanceand patient's age statistically most likely represents a cyst or hemangioma. GALLBLADDER: No stones, wall thickening or pericholecystic fluid. BILE DUCTS: No intrahepatic or extrahepatic ductal dilatation. SPLEEN: Normal size. No focal lesions. PANCREAS: No masses. No adjacent inflammation or peripancreatic fluid collections. Pancreatic duct not dilated. ADRENALS: Normal. KIDNEYS/URINARY TRACT: No solid masses. No cysts. No hydronephrosis or hydroureter. GI: No visualized abnormality. PERITONEUM: No ascites. RETROPERITONEUM: No mass or adenopathy. VASCULATURE: No abdominal aortic aneurysm. MUSCULOSKELETAL: No acute findings. OTHER: No other abnormality. IMPRESSION: Right hepatic lobe laterally 0.2 cm T2 hyperintense focus, too small to adequately characterize however given the appearance and patient's agecyst statistically most likely represents a cyst or hemangioma. THIS IS AN ELECTRONICALLY VERIFIED FINAL REPORT 02/03/2023 1:05 PM - Electronically signed by Pawel Kenny M.D. JA: ALANIS Report ID: [id number] Reading Location: [place] [address] Jerson Montenegro HEALTH AND SAFETY INSTRUCTOR IMG MRI PROCEDURES Final Result documented in this encounter Visit Diagnoses Diagnosis Hepatic lesion documented in this encounter Care Teams Principal Security Architect Relationship Specialty Start Date End Date Zoe Garcia MD PCP - General Family Practice 03/22/22 Shasta Stone MD Obstetrics and Gynecology 02/10/22 8/08/09 documented as of this encounter
--- OUTSIDE RECORDS SUMMARY | 2024-07-18 00:07 | XMS_ITS | Encounter Summary ---
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 Leslie removed as PCP Dr. Garcia added. * Telephone Encounter - Otis Olvera - 02/11/2022 9:43 AM CDT ----- Message from [employer] sent at 02/11/2022 8:49 AM CDT ----- Regarding: Medical team Take this redd off my chart to who I can contact thanks. * Telephone Encounter - Steph Wallace MA - 02/11/2022 9:29 AM CDT ----- Message from [employer] sent at 02/11/2022 8:49 AM CDT ----- Regarding: Medical team Take this redd off my chart to who I can contact thanks. documented in this encounter Plan of Treatment Not on file documented as of this encounter Visit Diagnoses Not on filedocumented in this encounter Care Teams Systems Admin Relationship Specialty Start Date End Date Zoe Garcia MD PCP - General Family Practice 02/11/22 02/13/22 Shasta Stone MD Obstetrics and Gynecology 02/10/22 8/08/09 documented as of this encounter
--- OUTSIDE RECORDS SUMMARY | 2024-07-18 00:07 | XMS_ITS | Encounter Summary ---
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 Not on file [...] January (6 weeks) 30 tablet 1 12/19/2022 documented in this encounter Miscellaneous Notes * Addendum Note - Rupinder Hernandez CLT - 12/19/2022 5:40 PM CDTAddended by: RUPINDER HERNANDEZ on: 02/13/2023 08:12 AM Modules accepted: Orders documented in this encounter Plan of Treatment Not on file documented as of this encounter Results * TSH (02/13/2023 8:12 AM CDT) Thyroid Stimulating Hormone 1.88 0.30 - 4.20 mcIUnit/mL LUISA CAREY Blood 02/13/2023 8:12 AM CDT 02/13/2023 2:31 PM CDT Charmaine Leon NP LAB BLOOD ORDERABLES Final Resul t LUISA [id number] [address] Department of Laboratories [place], [place] [id number] documented in this encounter Visit Diagnoses Diagnosis Acquired hypothyroidism Unspecified hypothyroidism documented in this encounter Discontinued Medications Medication Sig Discontinue Reason Start Date End Da te levothyroxine (SYNTHROID) 112 mcg tabletIndications:Acquire d hypothyroidism Take 1 tablet (112 mcg total) by mouth daily before breakfast Repeat thyroid level on file to be done at the labs sometime in 11/28/2022 12/19/2022 documented as of this encounter Care Teams Recycler Relationship Specialty Start Date End Date Zoe Garcia MD PCP - General Family Practice 03/22/22 Shasta Stone MD Obstetrics and Gynecology 02/10/22 8/08/09 documented as of this encounter
--- OUTSIDE RECORDS SUMMARY | 2024-07-18 00:07 | XMS_ITS | Encounter Summary ---
Author Organization [facility] Healthcare Address [address] [place] [address] Care Team Providers Care Baker Bench Name Role Phone Shasta Stone MD Unavailable [phone] Zoe Garcia MD Primary Care Provider Reason for Referral * Diagnostic Imaging (Routine) - Closed Specialty Diagnoses / Procedures Referred By Tacos t Referred To Contact Radiology Diagnoses Other microscopic hematuria Procedures CT Urogram WO 3D CT Abdomen Pelvis W WO Contrast Zoe Garcia MD Phone: tel: fax: [address] [address] Referral ID Status Reason Start Date Expiration Date Visits Re quested Visits Authorized [id number] Closed 10/03/2022 12/01/2022 1 1 Reason for Visit * Diagnostic Imaging (Routine) - Closed Specialty Diagnoses / Procedures Referred By Tacos reyes Referred To Contact Radiology Diagnoses Other microscopic hematuria Procedures CT Urogram WO 3D CT Abdomen Pelvis W WO Contrast Zoe Garcia MD Phone: tel: fax: [address] [address] Referral ID Status Reason Start Date Expiration Date Visits Re quested Visits Authorized [id number] Closed 10/03/2022 12/01/2022 1 1 Encounter Details Date Type Department Care Team (Latest Contact Info) Description 10/18/2022 3:09 PM CDT - 10/18/2022 11:59 PM CDT Hospital Encounter [facility] [address] [place] [address] Other microscopic hematuria Discharge Disposition: Discharge to home or self care Social History Tobacco Use Types Packs/Day Years Used Date Smoking Tobacco: Former Cigarettes 0.1 1 2 2019 Alcohol Use Standard Drinks/Week Comments Never [...] 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 CT UROGRAM WO 3D REASON FOR STUDY: ?? Hematuria, gross/macroscopic ?? Micro hematuria for about 2 years ??No pain ??No hx of stones ??Only surgery was a tubal ligation and removal of an IUD ? TECHNIQUE: Precontrast images of the abdomen. ??Abdomen and pelvis images with intravenous and ?? without ??oral contrast using helical scanning technique with dynamic intravenous contrast injection. ??Reconstructed coronal and sagittal MPR images reviewed. All images stored on PACS. ?? Automated exposure control was used as a dose optimization technique for this examination. CONTRAST TYPE/DOSE: ?? 100 mL Optiray 350 ??injected via ?? intravenous COMPARISON: ?? None available. REFERENCE: Per ACR white paper recommendations, unless otherwise specified no follow-up imaging is recommended for incidental renal and adrenal lesions per consensus recommendations based on imaging criteria. Further lab evaluation could be pursued based on clinical findings. FINDINGS: URINARY TRACT: KIDNEYS: ?? No identified significant cystic or solid masses. ??No calculi. Normal renal collecting systems. ?? URETERS AND BLADDER: ?? The bilateral ureters are normal in caliber without hydroureter. ??No masses or mucosal abnormalities. ?? The urinary bladder is incompletely distended but is normal in appearance. ??No bladder wall lesions noted. ??No stones in the urinary bladder lumen. ABDOMEN/PELVIS: LOWER CHEST: ?? No significant pulmonary abnormalities. No effusion. LIVER: ?? Normal size. ??Tiny subcentimeter hypodensity within the lateral right hepatic lobe too small to adequately characterize but likely representing a benign cyst or hemangioma. ??No other identified cystic or solid masses. GALLBLADDER: ?? No stones identified. No wall thickening or inflammatory changes. BILE DUCTS: ?? No intrahepatic or extrahepatic ductal dilatation. SPLEEN: ?? Normal size. ??No focal lesions. PANCREAS: ?? No identified cystic or solid masses. No significant calcifications. No adjacent inflammation or peripancreatic fluid collections. Pancreatic duct not dilated. ADRENALS: ?? Normal. GI: ?? No dilated bowel loops. No obvious wall thickening. ??Normal appendix. ?? No significant diverticular disease. PERITONEUM: ?? No ascites or free air. ?? Small fat containing umbilical hernia. RETROPERITONEUM: ?? No mass or adenopathy. REPRODUCTIVE: ?? No significant abnormality. VASCULATURE: ??No abdominal aortic aneurysm. MUSCULOSKELETAL: ?? No acute findings. OTHER: ?? No other abnormality. IMPRESSION: 1. ??No urinary tract calculi or obstructive uropathy. ??No uroepithelial mass or abnormality identified. ??No acute intra-abdominal/pelvic abnormality. 2. ??Additional findings as detailed. ?? THIS IS AN ELECTRONICALLY VERIFIED FINAL REPORT 10/18/2022 11:08 PM - Electronically signed by ??Harrison Portillo M.D. MF: [email or web address] D: ??10/18/2022 11:08 PM T: ??10/18/2022 11:08 PM Report ID: [id number] Reading Location: ??[id number] Procedure Note Harrison Portillo, DO - 10/18/2022 EXAM DESCRIPTION: CT UROGRAM WO 3D REASON FOR STUDY: Hematuria, gross/macroscopic Micro hematuria for about 2 years No pain No hx of stones Only surgerywas a tubal ligation and removal of an IUD TECHNIQUE: Precontrast images of the abdomen. Abdomen and pelvis imageswith intravenous and without oral contrast using helical scanning techniquewith dynamic intravenous contrast injection. Reconstructed coronal andsagittal MPR images reviewed. All images stored on PACS. Automated exposure control was used as a dose optimization technique forthis examination. CONTRAST TYPE/DOSE: 100 mL Optiray 350 injected via intravenous COMPARISON: None available. REFERENCE: Per ACR white paper recommendations, unless otherwise specifiedno follow-up imaging is recommended for incidental renal and adrenal lesionsper consensus recommendations based on imaging criteria. Further labevaluation could be pursued based on clinical findings. FINDINGS: URINARY TRACT: KIDNEYS: No identified significant cystic or solid masses. No calculi. Normal renal collecting systems. URETERS AND BLADDER: The bilateral ureters are normal in caliber without hydroureter. No masses or mucosal abnormalities. The urinary bladder is incompletely distended but is normal in appearance. No bladder walllesions noted. No stones in the urinary bladder lumen. ABDOMEN/PELVIS: LOWER CHEST: No significant pulmonary abnormalities. No effusion. LIVER: Normal size. Tiny subcentimeter hypodensity within the lateralright hepatic lobe too small to adequately characterize but likely representinga benign cyst or hemangioma. No other identified cystic or solid masses. GALLBLADDER: No stones identified. No wall thickening or inflammatory changes. BILE DUCTS: No intrahepatic or extrahepatic ductal dilatation. SPLEEN: Normal size. No focal lesions. PANCREAS: No identified cystic or solid masses. No significant calcifications. No adjacent inflammation or peripancreatic fluidcollections. Pancreatic duct not dilated. ADRENALS: Normal. GI: No dilated bowel loops. No obvious wall thickening. Normalappendix. No significant diverticular disease. PERITONEUM: No ascites or free air. Small fat containing umbilicalhernia. RETROPERITONEUM: No mass or adenopathy. REPRODUCTIVE: No significant abnormality. VASCULATURE: No abdominal aortic aneurysm. MUSCULOSKELETAL: No acute findings. OTHER: No other abnormality. IMPRESSION: 1. No urinary tract calculi or obstructive uropathy. No uroepithelialmass or abnormality identified. No acute intra-abdominal/pelvic abnormality. 2. Additional findings as detailed. THIS IS AN ELECTRONICALLY VERIFIED FINAL REPORT 10/18/2022 11:08 PM - Electronically signed by Harrison Portillo M.D. MF: KEVIN Report ID: [id number] Reading Location: [place] [address] Zoe Garcia MD IMG CT PROCEDURES Donna l Result documented in this encounter Visit Diagnoses Diagnosis Other microscopic hematuria documented in this encounter Administered Medications Inactive Administered Medications - up to 3 most recent administrations Medication Order MAR Action Action Date Dose Rate Site ioversoL (OPTIRAY 350) syringe 100 mL 100 mL, intravenous, Once in imaging, contrast, Starting on Tu10/18/22 at 1552, For 2 doses Contrast Given 10/18/2022 3:57 PM CDT 75 mL Contrast Given 10/18/2022 3:54 PM CDT 75 mL documented in this encounter Care Teams Baker Bench Relationship Specialty Start Date End Date Zoe Garcia MD PCP - General Family Practice 03/22/22 Shasta Stone MD Obstetrics and Gynecology 02/10/22 8/08/09 documented as of this encounter
--- OUTSIDE RECORDS SUMMARY | 2024-07-18 00:07 | XMS_ITS | Encounter Summary ---
Author Organization [facility] Address [address] [place] [address] Care Team Providers Care Tool Planner Name Role Phone Shasta Stone MD Unavailable [phone] Zoe Garcia MD Primary Care Provider Encounter Details Date Type Department Care Team (Late st Contact Info) Description 09/30/2022 11:[address] 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
--- OUTSIDE RECORDS SUMMARY | 2024-07-18 00:07 | XMS_ITS | Encounter Summary ---
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
--- OUTSIDE RECORDS SUMMARY | 2024-07-18 00:07 | XMS_ITS | Encounter Summary ---
Author Organization [facility] Address [address] [place] [address] Care Team Providers Care Traffic Control Flagger Name Role Phone Shasta Stone MD Unavailable [phone] Zoe Mesa MD Primary Care Provider Reason for Visit * Reason Comments Thyroid Problem Patient is here for a follow up of her Thyroid. Patient reports she needs new lab work. She would also like to discuss her recent visit with Urology Encounter Details Date Type Department Care Team (Latest Contact Info) Description 11/04/2022 11:00 AM CDT Office Visit [facility] at [address] [phone] Zoe Mesa MD [address] [place] [address] [address] [place] [address] Other microscopic hematuria (Primary Dx); Liver lesion; Gastroesophageal reflux disease without esophagitis; Acquired hypothyroidism Social History Tobacco Use Types Packs/Day Years Used Date Smoking Tobacco: Former Cigarettes 0.1 1 2 019 - 2019 Alcohol Use Standard Drinks/Week Comments Never [...] 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 peppermint, chocolate, alcohol, coffee, citrus fruits and juices, tomato products; avoid lying down for 2 to 3 hours after eating. Raise the head of the bed 4 to 6 inches. Avoid smoking. Avoid excess coffee, tea or other caffeinated beverages. Avoid garments that fit tightly through the abdomen. Avoid eating before bed. * Attachments The following attachments cannot be sent through Care Everywhere. * Gastroesophageal Reflux Disease ([employer]) (Chilean) * Hematuria ([employer]) (Chilean) documented in this encounter Ordered Prescriptions Prescription Sig Dispense Quantity Refills Last Filled Start Date End Date levothyroxine (SYNTHROID) 112 mcg tabletIndications:Ac quired hypothyroidism Take 1 tablet (112 mcg total) by mouth daily before breakfast 30 tablet 5 11/04/2022 3 levothyroxine (SYNTHROID) 100 mcg tabletIndications:Ac quired hypothyroidism Take 1 tablet (100 mcg total) by mouth daily before breakfast 30 tablet 1 11/04/2022 3 famotidine (PEPCID) 20 mg tabletIndications:Ga stroesophageal reflux disease without esophagitis Take 1 tablet (20 mg total) by mouth 2 (two) times a day as needed for heartburn 60 tablet 3 11/04/2022 3 documented in this encounter Progress Notes * Zoe Mesa MD - 11/04/2022 11:00 AM CDT SUBJECTIVE: Valerie Real is a 27 y.o. female here for follow up visit At last office visit we were working on starting evaluation for possible microscopic hematuria. Patient has had issues off and on for years. Repeat urine after her last office with did confirm presence of blood in the urine. She was told that she needed to have a CT urogram done and to see Urology for potential cystoscopy. CT urogram came back negative for cause of hematuria but did show incidental note of a very tiny subcentimeter cyst within the right hepatic lobe. It was felt to potentially be a benign cyst versus a small hemangioma but due to small size it was unable to be further evaluated. Patient is very nervous about the liver spot so has requested referral to GI. She was given a referral previously but it has yet to be scheduled. Patient notes strong family history of multiple different cancers and she is worried that this little cyst or hemangioma will turn into cancer. We have tried to reassure but she would like to see GI for their opinion and monitoring. Currently she denies any abdominal pain, nausea, vomiting, diarrhea. Patient did have an appointment this week to see Urology to discuss possible need for cystoscopy. She was very upset that they do not do the cystoscopy at the 1st visit. She is scheduled to get it next month. Patient is due to get repeat thyroid levels today to monitor her hypothyroidism to see if additional adjustment is needed. She does note that her levothyroxine is very expensive. We advised that thisis likely on the 4 dollar/10 dollar list at [facility]. We will go ahead and send a refill in on the 100 mcg dose. If her TSH is too high we can always increase it to 8 days a week and if it is too low can always decrease it to 6 days a week. Patient additionally complaining of increased symptoms of heartburn indigestion recently. She notesthat she is having issues when drinking coffee and that it is not just when she was fatty or greasyfoods. Patient is wondering what to do for this. She has used [id number]-oey-hoywaxm antacids with minimal benefit. She is not tried famotidine Current Outpatient Medications on File Prior to Visit Medication Sig Dispense Refill [DISCONTINUED] levothyroxine (SYNTHROID) 100 mcg tablet Take 1 tablet (100 mcg total) by mouth daily before breakfast 90 tablet 1 [DISCONTINUED] ferrous sulfate ER 324 mg (65 mg iron) EC tablet Take 65 mg by mouth daily (Patient not taking: Reported on 09/30/2022) No current facility-administered medications on file prior to visit. Allergies Allergen Reactions Amoxicillin Hives Clindamycin Hives, Itching and Rash Penicillins Hives Zithromax [Azithromycin] Rash Social History Tobacco Use Smoking status: Former Packs/day: 0.05 Years: 1.00 Pack years: 0.05 Types: Cigarettes Quit date: 2019 Years since quittin.3 Smokeless tobacco: None Substance and Sexual Activity Drug use: Never Sexual activity: Yes Partners: Male control/protection: Tubal Ligation Alcohol Use: Not At Risk (02/10/2022) AUDIT-C Frequency of Alcohol Consumption: Never Average Number of Drinks: Patient does not drink Frequency of Binge Drinking: Never PMH, PSH, FamHx all updated and reviewed as indicated in the electronic chart OBJECTIVE: Vitals: 11/04/22 1045 BP: 110/70 BP Location: Left arm Patient Position: Sitting Pulse: 63 Weight: 98 kg (216 lb) Height: 157.5 cm (5' 2 ) Body mass index is 39.51 kg/m??. Appears: alert, well appearing, and in no distress Ears: normal TM's and external ear canals both ears Lungs: clear to auscultation, no wheezes, rales, or rhonchi, no tachypnea, retractions, or cyanosis CV exam: regular rate and rhythm, normal S1 and S2, no murmurs Abdominal exam: non-tender, soft, nondistended, no rebound tenderness, and no guarding ASSESSMENT & PLAN: Diagnosis Plan 1. Other microscopic hematuria Continue evaluation per Urology. Cystoscopy needed to complete workup. Patient has had environmental exposures that increase her risk for bladder cancer 2. Liver lesion Likely benign hemangioma or cyst. See GI for consultation given her concerns 3. Gastroesophageal reflux disease without esophagitis famotidine (PEPCID) 20 mg tablet Discussed dietary modifications. Avoid triggers. Trial of famotidine. 4. Acquired hypothyroidism TSH levothyroxine (SYNTHROID) 112 mcg tablet TSH came back mildly elevated. Will increase levothyroxine to 112 mcg daily. Get repeat thyroid level in 6-8 weeks. rx sent to [facility] as may be cheaper The pathophysiology of reflux is discussed. Anti-reflux measures such as raising the head of the bed, avoiding tight clothing or belts, avoiding eating late at night and not lying down shortly after mealtime and achieving weight loss are discussed. Avoid ASA, NSAID's, caffeine, peppermints, alcoholand tobacco. OTC H2 blockers and/or antacids are often very helpful for PRN use. However, for persisting chronic or daily symptoms, prescription strength H2 blockers or a trial of PPI's are often used. Advised to call back directly if there are further questions, or if these symptoms fail to improve as anticipated or worsen, or any new concerns arise An After Visit Summary was printed and given to the patient. Follow up as previously recommended for next annual physical. Zoe Mesa MD documented in this encounter Plan of Treatment Not on file documented as of this encounter Results * (ABNORMAL) TSH (12/19/2022 8:46 AM CDT) Thyroid Stimulating Hormone 4.85(H) 0.30 - 4.20 mcIUnit/mL [facility] Blood 12/19/2022 8:46 AM CDT 12/19/2022 2:29 PM CDT us Zoe Mesa MD LAB BLOOD ORDERABLES F inal Result [facility] [address] [place] [address] documented in this encounter Visit Diagnoses Diagnosis Other microscopic hematuria- Primary Liver lesion Other specified disorders of liver Gastroesophageal reflux disease without esophagitis Esophageal reflux Acquired hypothyroidism Unspecified hypothyroidism documented in this encounter Discontinued Medications Medication Sig Discontinue Reason Start Date End Da te ferrous sulfate ER 324 mg (65 mg iron) EC tabletIndications:Iron Deficiency Anemia Take 65 mg by mouth daily Therapy completed 11/04/2022 levothyroxine (SYNTHROID) 100 mcg tabletIndications:Acquire d hypothyroidism Take 1 tablet (100 mcg total) by mouth daily before breakfast Reorder 03/25/2022 11/04/2022 levothyroxine (SYNTHROID) 100 mcg tabletIndications:Acquire d hypothyroidism Take 1 tablet (100 mcg total) by mouth daily before breakfast Reorder 11/04/2022 11/04/2022 documented as of this encounter Care Teams Traffic Control Flagger Relationship Specialty Start Date End Date Zoe Mesa MD PCP - General Family Practice 03/22/22 Shasta Stone MD Obstetrics and Gynecology 02/10/22 8/2 08/09 documented as of this encounter
--- OUTSIDE RECORDS SUMMARY | 2024-07-18 00:07 | XMS_ITS | Encounter Summary ---
Author Organization [facility] Address [address] [place] [address] Care Team Providers Care Transit Operations Supervisor Name Role Phone Shasta Stone MD Unavailable [phone] Zoe Garcia MD Primary Care Provider Reason for Referral * Consultation (Routine) - Closed Specialty Diagnoses / Procedures Referred By Tacos reyes Referred To Contact Gastroenterology Diagnoses Liver lesion Zoe Garcia MD Phone: tel: fax: [facility] Gastroenterology at [address] [place] [address] Phone: tel: fax: Referral ID Status Reason Start Date Expiration Date V isits Requested Visits Authorized [id number] Closed Specialty Services Required 10/21/2022 11/20/2023 10 10 Question Answer Please select the performing region: [facility] [[id number]] Please select the performing department: [facility] [[id number]] # of visits: 10 Comments Incidental finding on CT urogram of Tiny subcentimeter hypodensity within the lateral right hepatic lobe too small to adequately characterize but likely representing a benign cyst or hemangioma. Patient requesting GI opinion on this as she is very concerned given there is a family history of multiple cancers. 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 Garcia's recommendation. She reported that she has an appointment with Urology on 11/02/22 [facility]. I informed her that I didn't see that appointment in her chart andto make sure that the office notes are sent to us if they aren't part of [facility]. Discussed that GI would be better at determining if this is something she would have to monitor yearly. She agreed to having a referral for GI sent in. * Telephone Encounter - Zoe Garcia MD - 10/20/2022 6:27 PM CDT Patient has already been provided urology is information multiple times. Please give her their information again. She had been instructed weeks ago to go ahead and call and schedule appointment so that she would be able to see them quickly after the urogram was done The liver cyst is unlikely to need anything done but she really wants to get a 2nd opinion we can refer to GI at [place] [facility] already mycharted about this as well, but please call her as she seems overly anxious * Telephone Encounter - Yadira Ferreira - 10/20/2022 4:24 PM CDT Call Back Caller???s Concern: Patient returning call, she Has additional questions, would like to know if liver cyst removal is possible. Has a concern that with family history of cancer that this could becomecancerous. Also provided infor on urology referral Caller???s Call back #: [phone] Does message need to be routed? Yes-Action Needed * Telephone Encounter - Jasmin Byers MA - 10/20/2022 4:20 PM CDT LVM for patient to call back to discuss her CT results and Dr. Garcia's recommendations.. * Telephone Encounter - Zoe Garcia MD - 10/20/2022 12:59 PM CDT Please let her know results CT urogram did not show any definitive cause for the blood in her urine. There are no signs of kidney stones, masses, bladder lesions. The next step would be to have her see urology for cystoscopy aspreviously recommended There was incidental note of a tiny subcentimeter spot in the right liver lobe which likely represents a benign (not concerning) Liver cyst or hemangioma. Unless she starts having liver symptoms we can likely defer need for liver ultrasound at current time. * Telephone Encounter - Yadira Ferreira - 10/20/2022 11:39 AM CDT Test Result Request Type of test: Abdomen Pelvis Cat Scan Date of test: 10/18/22 Where was the test performed at?[facility] Did provider dictate result yet? No Caller's Callback #: [phone] Additional Questions/Comments: Patient is anxiously awaiting results from this test and has been getting calls from urologists office. Does message need to be routed?Yes-Action Needed documented in this encounter Plan of Treatment Scheduled Referrals Name Type Priority Associated Diagnoses Order Schedule Ambulatory referral to Gastroenterology Outpatient Referral Routine Liver lesion Expected: 10/28/2022 (Approximate), Expires: 10/22/2023 documented as of this encounter Visit Diagnoses Diagnosis Liver cyst- Primary Other specified disorders of liver Liver lesion Other specified disorders of liver documented in this encounter Care Teams Transit Operations Supervisor Relationship Specialty Start Date End Date Zoe Garcia MD PCP - General Family Practice 03/22/22 Shasta Stone MD Obstetrics and Gynecology 02/10/2202/15 documented as of this encounter
--- OUTSIDE RECORDS SUMMARY | 2024-07-18 00:07 | XMS_ITS | Encounter Summary ---
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 Liver enzymes normal. Testing for hepatitis normal. All very reassuring. Will see what your MRI shows and go from there. Please let me know if you have any questions or concerns. Jerson Montenegro NP documented in this encounter Plan of Treatment Not on file documented as of this encounter Procedures Procedure Name Priority Date/Time Associated Diagnosis Comments EGFR Routine 01/09/2023 8:03 AM CDT Hepatic lesion [id number], TUMOR MARKER Routine 01/09/2023 8:03 AM CDT Hepatic lesion HEPATITIS PANEL, ACUTE Routine 8:03 AM CDT Hepatic lesion COMPREHENSIVE METABOLIC PANEL Routine 01/09/2023 8:03 AM CDT Hepatic lesion documented in this encounter Results * eGFR (01/09/2023 8:03 AM CDT) eGFR 128 mL/min/1. 73 m2 [facility] ([place]) Comment: Interpretive Data Reference Interval Normal ?>/= [...] interpretive data was last reviewed 2021. Blood 01/09/2023 8:03 AM CDT 01/09/2023 10:57 AM CDT us Jerson Montenegro PROFESSOR OF FAMILY MEDICINE LAB BLOOD ORDERABLE S Final Result [facility] ([place]) [address] [facility] [facility] Department [place] [address] * (ABNORMAL) Comprehensive metabolic panel (01/09/2023 8:03 AM CDT) Sodium 137 135 - 145 mmol/L [facility] ([place]) Potassium, pl 4.6 3.3 - 4.9 mmol/L [facility] ([place]) Chloride 103 97 - 110 mmol/L [facility] ([place]) CO2 25 22 - 32 mmol/L [facility] ([place]) Anion gap 10 2 - 15 mmol/L [facility] ([place]) BUN 9 6 - 25 mg/dL [facility] ([place]) Creatinine 0.59(L) 0.60 - 1.10 [...] 2022. Calcium 9.1 8.5 - 10.3 mg/dL [facility] ([place]) Bilirubin, total 0.3 0.1 - [...] 8:03 AM CDT 01/09/2023 10:57 AM CDT Jerson Montenegro PROFESSOR OF FAMILY MEDICINE LAB BLOOD ORDERABLE S Final Result [facility] ([place]) [address] [facility] Department [place] [address] * [id number], Tumor Marker (01/09/2023 8:03 AM CDT) alpha Fetoprotein <2.0 <=8.3 ng/mL [facility] ([place]) Comment: Interpretive Data The Norma [...] et al. ??J. Ped Surg 1978;13:155-156 Ranjeet Perze. et al. Clin Chem Lab Med 2018;57:783-797 Ladarius Parker et al. ??Clin Chem 2014;9523-2978. Current interpretive data was last revised 2022. Testing performed by: [facility], [address] [place]., [address] Blood 01/09/2023 8:03 AM CDT 01/09/2023 3:02 PM CDT Jerson Montenegro PROFESSOR OF FAMILY MEDICINE LAB BLOOD ORDERABLE S Final Result [facility] ([place]) [address] [facility] Department [place] [address] * Hepatitis panel, acute (01/09/2023 8:03 AM CDT) Hep A IgM Nonreactive Nonreactive [facility] ([place]) Comment: Interpretive Data: If Hep A IgM Ab is reported as Equivocal, a new sample should be drawn in two weeks for testing. Current interpretive data was last revised on 19. Testing performed by: [facility], [address] [place] [address]., [id number] Hep B core IgM Nonreactive Nonreactive [facility] ([place]) Comment: Interpretive Data If HepB Core IgM Ab is reported as Equivocal, a new sample should be drawn in two weeks for testing. Current interpretive data was last revised on 19. Testing performed by: [facility], [address] [place] [address]., [id number] Hep C Ab Nonreactive Nonreactive [facility] [...] last revised on 2019. Testing performed by: [facility], [address] [place] [address]., [id number] HepBsAg Nonreactive Nonreactive [facility] ([place]) Comment:Testing performed by : [facility], [address] [place] [address], [place]., [address] Blood 01/09/2023 8:03 AM CDT 01/09/2023 2:08 PM CDT Jerson Montenegro PROFESSOR OF FAMILY MEDICINE LAB MICROBIOLOGY - GENERAL ORDERABLES Final Result [facility] ([place]) [address] [facility] [facility] Department of Laboratories [place], [place] [id number] documented in this encounter Visit Diagnoses Diagnosis Hepatic lesion documented in this encounter Care Teams Bridge Instructor Relationship Specialty Start Date End Date Zoe Garcia MD PCP - General Family Practice 03/22/22 Shasta Stone MD Obstetrics and Gynecology 02/10/22 8/2 08/09 documented as of this encounter
--- OUTSIDE RECORDS SUMMARY | 2024-07-18 00:07 | XMS_ITS | Encounter Summary ---
Author Organization [facility] Address 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
--- OUTSIDE RECORDS SUMMARY | 2024-07-18 00:07 | XMS_ITS | Encounter Summary ---
Author Organization [facility] Address [address] [place] [address] Care Team Providers Care Battalion Fire Chief Name Role Phone Shasta Stone MD Unavailable [phone] Zoe Mesa MD Primary Care Provider Reason for Visit * Reason Comments Establish Care Thyroid Problem Patient is a new to this practice patient and is here for a prescription of her thyroid medication. Patient reports she would like blood work done today. Encounter Details Date Type Department Care Team (Latest Contact Info) Description 03/25/2022 10:00 AM CDT Office Visit [facility] at [address] [address] Zoe Mesa MD [address] [place] [address] [address] [place] [address] Acquired hypothyroidism (Primary Dx); Elevated fasting glucose; Class 2 obesity due to excess calories without serious comorbidity with body mass index (BMI) of 38.0 to 38.9 in adult Social History Tobacco Use Types Packs/Day Years Used Date Smoking Tobacco: Former Cigarettes 0.1 1 Tobacco Cessation:Counseling Given: Not Answered Alcohol Use Standard Drinks/Week Comments Never 0 (1 standard drink = 0.6 oz pur e alcohol) AUDIT-C Answer Date Recorded Q1: How often do you have a drink containing alcohol? Never 02/10/2022 Q2: How many drinks containi ng alcohol do you have on a typical day when you are drinking? 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 * Hypothyroidism (Carpentry Foreman) (Czech) * Weight Management (Discharge Care) (Czech) documented in this encounter Ordered Prescriptions Prescription Sig Dispense Quantity Refills Last Filled Start Date End Date levothyroxine (SYNTHROID) 100 mcg tabletIndications:Ac quired hypothyroidism Take 1 tablet (100 mcg total) by mouth daily before breakfast 90 tablet 1 03/25/2022 3 documented in this encounter Progress Notes * Zoe Mesa MD - 03/25/2022 10:00 AM CDT SUBJECTIVE: Valerie Real is a 27 y.o. female here to establish care and to discuss the following. Last PCP - Dr. Leslie. She saw him in January but was unhappy with his care. Pt has had 4 PCPs (counting me) in the last 1 yr. Hypothyroidism - On levothyroxine. Takes nightly. Denies missed a dose. Denies excessive temperature intolerance. Energy feel ok. Denies fatigue. Denies palpitations. Denies tremor. Resulted in the Past 12 Months 09/24/21 0935 TSH 3.03 Iron deficiency anemia - resolved on prior labs. Still on iron supplement IGT - watches diet some and exercises. Exercise: goes to gym 2-3 times a week. Does cardio and some weights Nutrition: watches diet some PMH, PSH, and FamHx all updated and reviewed as indicated Current Outpatient Medications Medication Sig Dispense Refill copper (PARAGARD) 380 square mm IUD 1 each by intrauterine route once ferrous sulfate ER 324 mg (65 mg iron) EC tablet Take 65 mg by mouth daily levothyroxine (SYNTHROID) 100 mcg tablet Take 1 tablet (100 mcg total) by mouth daily before breakfast 90 tablet 1 No current facility-administered medications for this visit. Social History Tobacco Use Smoking status: Former Packs/day: 0.05 Years: 1.00 Pack years: 0.05 Types: Cigarettes Smokeless tobacco: None Substance and Sexual Activity Drug use: Never Sexual activity: Yes Partners: Male control/protection: I.U.D. Comment: dolores placed 2018yr or 2016 per pt Alcohol Use: Not At Risk Frequency of Alcohol Consumption: Never Average Number of Drinks: Patient does not drink Frequency of Binge Drinking: Never Rare social alcohol Allergies Allergen Reactions Amoxicillin Hives Clindamycin Hives, Itching and Rash Penicillins Hives Zithromax [Azithromycin] Rash No LMP recorded. (Menstrual status: IUD). Last Pap smear (21-65): goes to Dr. Stone at [facility]. Reports UTD on pap Last mammogram (40+): na Last Colonoscopy (50+, earlier if high risk): will need at 40 due to family hx REVIEW OF SYSTEMS Constitutional: Denies fever, chills Eyes: no discomfort. Ears, nose, mouth, and throat: Denies nasal discharge, sorethroat Respiratory: Denies cough, dyspnea, wheezing Cardiovascular: Denies chest pain, palpitations Gastrointestinal: Denies abdominal pain, nausea, vomiting, bloody stools or melena. Occasional diarrhea when she takes iron. Denies constipation. Genitourinary: Denies dysuria Skin: Denies recent rashes Hematologic/lymphatic: Denies abnormal bleeding or bruising. Musculoskeletal: Denies myalgias Neurological: Denies numbness, tingling, syncope, dizziness. Denies TIA or stroke-like symptoms Behavioral/Psych: no significant anxiety or depression Endocrine: Denies fatigue OBJECTIVE: Vitals: 03/25/22 1025 BP: 100/70 BP Location: Left arm Patient Position: Sitting Pulse: 63 Weight: 95.3 kg (210 lb) Height: 157.5 cm (5' 2 ) Body mass index is 38.41 kg/m??. General: alert, well appearing, and in no acute distress HEENT: Normocephalic atraumatic. PERRLA, EOMI, no conjunctivitis. Bilateral TM's and external ear canals normal. No cervical adenopathy. Thyroid normal without nodules [...] x 3, Cranial nerves II-XII grossly intact. PERRLA. EOMI. Strength and sensation grossly intact in bilateral upper extremities and bilateral lower extremities. 2+ bilateral patellar reflexes. Grossly non-focal Psych: Normal mood and affect today. Skin: Warm, dry, without significant rash Ext: No cyanosis or clubbing. No peripheral edema. Pulses present ASSESSMENT & PLAN: Diagnosis Plan 1. Acquired hypothyroidism levothyroxine (SYNTHROID) 100 mcg tablet Clinically and biochemically euthyroid. Continue current medication. Rx best taken on empty stomachprior to breakfast. 2. Elevated fasting glucose Noted on prior labs. Encouraged healthy diet, exercise, weight loss 3. Class 2 obesity due to excess calories without serious comorbidity with body mass index (BMI) of38.0 to 38.9 in adult Counseled patient on diet and weight loss strategies. Low suspicion that her thyroid contribute to her weight issues given chemically euthyroid Health Maintenance Preventative care counseling/screening: Smoking cessation: na Pap smear (Q3 women 21-30, pap+HPV Q5 women 30-65): UTD per pt. Sees middle school art teacher Mammogram (Q1-2 women 50-74, offer to 40+): na Colon cancer screening (adults 50-75): will need at age 40 given family History Osteoporosis screening (women > 65): na Lung Cancer screening (55-80 with 30 pack year Hx): na Healthy Living Tips Low fat, low cholesterol diet rich in lean proteins, whole grains, fruits and vegetables. Limit fast foods and processed foods ACSM activity recs: 150 minutes/week. 30 minutes most days of the week. See goals in chart Advised to call or return if symptoms worsen or fail to improve as expected, or pt develops any other concerning symptoms. An After Visit Summary was printed and given to the patient. F/u in 6 months for physical My total encounter time on 03/25/2022 was 40 minutes which was spent in the activities documented in the note. This includes time spent prior to the visit and after the visit in direct care of the patient. This time does not include time spent in any separately reportable services. Zoe Mesa MD documented in this encounter Plan of Treatment Not on file documented as of this encounter Visit Diagnoses Diagnosis Acquired hypothyroidism- Primary Unspecified hypothyroidism Elevated fasting glucose Impaired fasting glucose Class 2 obesity due to excess calories without serious comorbidity with body mass index (BMI) of 38.0 to 38.9 in adult documented in this encounter Discontinued Medications Medication Sig Discontinue Reason Start Date End Da te levothyroxine (SYNTHROID) 100 mcg tabletIndications:Acquired hypothyroidism Take 1 tablet (100 mcg total) by mouth daily Reorder 11/18/2021 03/25/2022 documented as of this encounter Historical Medications * This list may reflect changes made after this encounter. copper (PARAGARD) 380 square mm IUD 1 each by intrauterine route once 07/17/2015 3 added in this encounter Care Teams Battalion Fire Chief Relationship Specialty Start Date End Date Zoe Mesa MD PCP - General Family Practice 03/22/22 Shasta Stone MD Obstetrics and Gynecology 02/10/22 02/15 08/09 documented as of this encounter
--- OUTSIDE RECORDS SUMMARY | 2024-07-18 00:07 | XMS_ITS | Encounter Summary ---
Author Organization [facility] Address [address] [place] [address] Care Team Providers Care Sdv Pilot/Navigator/Dds Operator Name Role Phone Shasta Stone MD Unavailable [phone] Zoe Mesa MD Primary Care Provider Reason for Referral * Diagnostic Imaging (Routine) - Closed Specialty Diagnoses / Procedures Referred By Tacos reyes Referred To Contact Radiology Diagnoses Other microscopic hematuria Procedures CT Urogram WO 3D CT Abdomen Pelvis W WO Contrast Zoe Mesa MD Phone: tel: fax: [address] [phone] Referral ID Status Reason Start Date Expiration Date Visits Re quested Visits Authorized [id number] Closed 10/03/2022 12/01/2022 1 1 Reason for Visit * Reason Comments Annual Exam Patient is being see n for her physical and follow up on her hypothyroidism. Encounter Details Date Type Department Care Team (Late st Contact Info) Description 09/30/2022 10:00 AM CDT Office Visit [facility] Primary Care at [address] [id number] Zoe Mesa MD [address] [place] [id number] Annual visit for general adult medical examination with abnormal findings (Primary Dx); Acquired hypothyroidism; Anxiety and depression; Iron deficiency anemia due to chronic blood loss; Elevated fasting glucose; Screening for lipid disorders; Other microscopic hematuria; Class 2 obesity due to excess calories without serious comorbidity with body mass index (BMI) of 39.0 to 39.9 in adult; Skin lesion Social History Tobacco Use Types Packs/Day Years Used Date Smoking Tobacco: Former Cigarettes 0.1 1 2 2019 Tobacco Cessation:Counseling Given: Not Answered Alcohol Use [...] 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 Not on file Not on file documented as of this encounter Last Filed Vital Signs Vital Sign Reading Time Taken Comments Blood Pressure 102/70 09/30/2022 10:01 AM CDT Pulse 55 09/30/2022 10:01 AM CDT Temperature - - Respiratory Rate - - Oxygen Saturation - - Inhaled Oxygen Concentration - - Weight 98 kg (216 lb) 09/30/2022 10:01 AM CDT Height 157.5 cm (5' 2 ) 09/30/2022 10:01 AM CDT Body Mass Index 39.51 09/30/2022 10:01 AM CDT documented in this encounter Patient Instructions * Patient Instructions* Zoe Mesa MD - 09/30/2022 10:00 AM CDT Recommendations For A Healthy Lifestyle Get labs done fasting today Routine Screening: Pap smear every 3 years age 21-65 depending on your history Mammogram every 1-2 years over age 40, then yearly over age 50 Bone density screening at age 65 Diabetes and Cholesterol screening every 3-5 years (starting at age 35, or optional at younger age)if normal, yearly if abnormal or risk factors. Colonoscopy at 45 per new guidelines, and then typically every 5-10 years depending on risk factors. Cologuard is next best alternative if you are low risk for colon cancer. Yearly eye exam Yearly dental exam Yearly physical exam with your primary care doctor Immunizations: Yearly Influenza Tetanus, Diphtheria, and Pertussis (Tdap) booster every 10 years Prevnar 20 (strep pneumonia vaccine) after age 65 or at any age if you smoke, have diabetes, or anylung or heart problems. If you do PPSV23, then you may consider getting Prevnar 20 one year later Shingles (Shingrix) vaccine after age 50 - It is a series of 2 shots given 2 to 6 months apart. Cuts risk of shingles by about 90%. Please check with insurance company to check for coverage and if they prefer you get it at our office or at a local pharmacy. Medicare based insurance prefer at the pharmacy. Please get vaccination against COVID-19, if not already done. Other Suggestions: Try to get 30 minutes [...] If you are currently smoking, please stop Please call office during routine office hours if any questions or concerns. Schedule a Follow up Appointment with me in: 1 year for physical documented in this encounter Progress Notes * Zoe Mesa MD - 09/30/2022 10:00 AM CDT SUBJECTIVE: Valerie Real is a 27 y.o. female here for their annual routine checkup Hypothyroidism - denies excessive temperature intoelrance. Denies missed doses in last 4-6 weeks. Mild fatigue Iron deficiency anemia - Had resolved on last labs. 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 Has held iron since last visit. Some fatigue but may be seasonal. Denies pica. Hx Anxiety and depression - doing well. Denies counseling. Not doing mindfulness or mediation. 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 Patient felt it was related to her postsurgical status. She needs recheck. Denies gross hematuria. Denies dysuria, frequency,urgency. Denies history of kidney stones Current Concerns: 1. 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 Still goes to [place] couple times a week Nutrition: watching diet and building more muscle. Patient Active Problem List Diagnosis Acquired hypothyroidism Anxiety and depression Iron deficiency anemia due to chronic blood loss Menorrhagia with regular cycle Class 2 obesity due to excess calories without serious comorbidity with body mass index (BMI) of 39.0 to 39.9 in adult IUD (intrauterine device) in place Annual visit for general adult medical examination with abnormal findings Other microscopic hematuria Current Outpatient Medications Medication Sig Dispense Refill ferrous sulfate ER 324 mg (65 mg iron) EC tablet Take 65 mg by mouth daily (Patient not taking: Reported on 09/30/2022) levothyroxine (SYNTHROID) 100 mcg tablet Take 1 tablet (100 mcg total) by mouth daily before breakfast 90 tablet 1 No current facility-administered medications for this visit. Medication(s) I personally manage have been reviewed and updated today. See Medication Tab for details. Allergies Allergen Reactions Amoxicillin Hives Clindamycin Hives, Itching and Rash Penicillins Hives Zithromax [Azithromycin] Rash Records reviewed: PMH, PSH, FamHx all reviewed and updated as indicated Social History Tobacco Use Smoking status: Former Packs/day: 0.05 Years: 1.00 Pack years: 0.05 Types: Cigarettes Quit date: 2020 Years since quittin.2 Smokeless tobacco: None Substance and Sexual Activity Drug use: Never Sexual activity: Yes Partners: Male control/protection: Tubal Ligation Alcohol Use: Not At Risk Frequency of Alcohol Consumption: Never Average Number of Drinks: Patient does not drink Frequency of Binge Drinking: Never REVIEW OF SYSTEMS Constitutional: Denies fever Eyes: no discomfort. Ears, nose, mouth, and throat: Denies nasal discharge. Denies sorethroat Respiratory: Denies cough, dyspnea, wheezing Cardiovascular: Denies chest pain, palpitations Gastrointestinal: Denies abdominal pain, frequent reflux, nausea, vomiting, diarrhea, constipation,bloody stools or melena Genitourinary: Denies urinary complaints Skin: spot on right leg for most of her life, not growing or changin Hematologic/lymphatic: Denies abnormal bleeding or bruising. Musculoskeletal: Denies myalgias Neurological: Denies numbness, tingling, syncope, dizziness. Denies TIA or stroke-like symptoms Behavioral/Psych: No depression. Endocrine: + fatigue OBJECTIVE: Vitals: 09/30/22 1001 BP: 102/70 BP Location: Right arm Patient Position: Sitting Pulse: 55 Weight: 98 kg (216 lb) Height: 157.5 cm (5' 2 ) Body mass index is 39.51 kg/m??. General: alert, well appearing, and in no acute distress HEENT: Normocephalic atraumatic. PERRLA, EOMI, no conjunctivitis. Bilateral TM's and external ear canals normal. No cervical adenopathy. Thyroid normal without nodules or thyromegaly. CV exam: regular rate and rhythm, normal S1 and S2, no murmurs, No rubs, or gallops appreciated. Respiratory: clear to auscultation bilaterally, no wheezes, rales, or rhonchi, Breathing unlabored with good aeration. No tachypnea, retractions, or cyanosis Abdominal exam: Soft, non-tender abdomen. No rebound or guarding. No masses or hepatosplenomegaly appreciated. Neuro: Alert and oriented x 3, Cranial nerves II-XII grossly intact. Strength and sensation grosslyintact in bilateral upper extremities and bilateral lower extremities. 2+ bilateral patellar reflexes. Grossly non-focal Extremities: No cyanosis, clubbing. No edema. Psych: Normal mood and affect today. Skin: right lateral leg just above knee has flesh colored raised nodule with smooth borders ASSESSMENT & PLAN: Diagnosis Plan 1. Annual visit for general adult medical examination with abnormal findings Urinalysis reflex to microscopic and culture Urine, clean voided Comprehensive metabolic panel Hemoglobin A1c Lipid panel CBC with auto differential TSH Iron profile w/ IBC Ferritin 2. Acquired hypothyroidism TSH relatively euthyroid. check and adjust as needed 3. Anxiety and depression cotnrolled without rx. monitor 4. Iron deficiency anemia due to chronic blood loss CBC with auto differential Iron profile w/ IBC Ferritin replete iron as needed. 5. Elevated fasting glucose Hemoglobin A1c monitor hgb a1c. work on healthy diet, exercise,w t loss 6. Screening for lipid disorders Lipid panel 7. Other microscopic hematuria Urinalysis reflex to microscopic and culture Urine, clean voided If persistent, then we will need to obtain CT urogram and refer to Urology for cystoscopy 8. Class 2 obesity due to excess calories without serious comorbidity with body mass index (BMI) of39.0 to 39.9 in adult encouraged to work on healthy diet, exercise, wt loss 9. Skin lesion Lesion on right leg concerning for probable dermatofibroma. Monitor Health Maintenence Discussed health maintenance issues including regular seat belt use, dental care, sunscreen use, good nutritional habits, and regular aerobic exercise. Preventative care counseling/screening: Smoking cessation: na Pap smear (Q3 women 21-30, pap+HPV Q3-5 women 30-65): up to date per pt. Sees instructor kindergarten Mammogram (Q1-2 women 50-74, offer to 40+): na Colon cancer screening (adults 45-75, or earlier if risk factors): na Osteoporosis screening (women > 65): na Lung Cancer screening (55-80 with 30 pack year Hx): na Healthy Living Tips Low fat, low cholesterol diet rich in lean proteins, whole grains, fruits and vegetables. Limit fast foods and processed foods ACSM activity recs: 150 minutes/week. 30 minutes most days of the week. Vaccinations updated: Tetanus (Tdap Q 10 yr): pt defers Shingrix (over age 50): na Influenza (yearly): declines Pneumococcal (65+, or if risk factors): na COVID-19: consider at pharmacy Advised to call or return to the office as needed or if pt develops any other concerning symptoms. An After Visit Summary was printed and given to the patient. F/u in 1 year for annual HMV or sooner PRN Zoe Mesa MD documented in this encounter Miscellaneous Notes * Addendum Note - Zoe Mesa MD - 09/30/2022 10:00 AM CDTAddended by: ZOE MESA on: 09/30/2022 05:03 PM Modules accepted: Orders documented in this encounter Plan of Treatment Not on file documented as of this encounter Results * CT Urogram WO [...] PM T: ??10/18/2022 11:08 PM Report ID: [id number] Reading Location: ??[id number] Procedure Note Harrison Portillo, DO - 10/18/2022 [...] Harrison Portillo M.D. MF: KEVIN Report ID: [id number] Reading Location: [id number] Zoe Mesa MD IMG CT PROCEDURES Donna l Result * Ferritin (09/30/2022 10:59 AM CDT) Ferritin 86 15 - 150 ng/mL CERNER CH Blood 09/30/2022 10:5 9 AM CDT 09/30/2022 3:05 PM CDT Zoe Mesa MD LAB BLOOD ORDERABLES F inal Result Performing Organization Address City/[facility]/ZIP Co de Phone Number [facility] [address] [place] [address] * Iron profile w/ IBC (09/30/2022 10:59 AM CDT) Iron 135 35 - 145 mcg/dl CERNER CH TIBC 285 250 - 400 mcg/dL C[facility]ER CH Transferrin saturation 47 20 - 50 % CERNER CH Blood 09/30/2022 10:5 9 AM CDT 09/30/2022 3:05 PM CDT Zoe Mesa MD LAB BLOOD ORDERABLES F inal Result Performing Organization Address [facility] Co de Phone Number LUISA [address] [address] [place] [address] * (ABNORMAL) TSH (09/30/2022 10:59 AM CDT) Thyroid Stimulating Hormone 4.48(H) 0.30 - 4.20 mcIUnit/mL CERNER CH Blood 09/30/2022 10:5 9 AM CDT 09/30/2022 3:05 PM CDT Zoe Mesa MD LAB BLOOD ORDERABLES F inal Result Performing Organization Address City/[facility] Co de Phone Number LUISA [address] [place] [address] * CBC with auto differential (09/30/2022 10:59 [...] MCV 94.1 81.3 - 96.4 fL CERNER MCH 31.1 27.1 - 33.3 pg CERNER MCHC 33.1 32.3 - 35.7 g/dL CERNER CH RDW CV 12.9 11.1 - 14.9 % CERNER CH RDW SD 44.5 35.7 - 48.1 fL CERNER CH NRBC abs 0.00 0.00 - 0.01 K/cumm CERNER CH Blood 09/30/2022 10:5 9 AM CDT 09/30/2022 3:05 PM CDT Zoe Mesa MD LAB BLOOD ORDERABLES F inal Result LUIAS [address] [address] Department [place] [address] * Lipid panel (09/30/2022 10:59 AM CDT) Cholesterol 138 30 - 199 mg/dL CERNER Comment: Interpretive Data Ages < or = [...] revised on 2018. Triglycerides 81 <=149 mg/dL CERNER Comment: Interpretive Data Ages < or = [...] on 2018. HDL 42 >=40 mg/dL LUISA Comment: Interpretive Data Ages < or = [...] 2018. LDL, calculated 80 <=129 mg/dL LUISA Comment: Interpretive Data Ages < or = [...] on 2018. Non-HDL Cholesterol 96 mg/dL LUISA Comment: Interpretive Data Ages < or = [...] last revised on 2018. Chol/HDL ratio 3 LUISA Blood 09/30/2022 10:5 9 AM CDT 09/30/2022 3:05 PM CDT Zoe Mesa MD LAB BLOOD ORDERABLES F inal Result LUISA [address] Department [place] [address] * Hemoglobin A1c (09/30/2022 10:59 AM CDT) Hgb A1C 5.3 4.0 - 5.6 % LUISA CAREY Estimated Average Glucose 105 mg/dL LUISA CAREY Comment: The ADA recommends reporting an estimated Average Glucose (eAG) with all Hemoglobin A1c results using the equation derived from a study of 507 normal and diabetic adults. ??Minority populations were underrepresented and children were not included. ?? (Diabetes Care 31:4710-5182, 2007). ??The eAG is not equivalent to a fasting glucose. Blood 09/30/2022 10:5 9 AM CDT 09/30/2022 3:05 PM CDT Zoe Mesa MD LAB BLOOD ORDERABLES F inal Result [facility] [address] [address] Department [place] [address] * Comprehensive metabolic panel (09/30/2022 10:59 AM CDT) Sodium 141 135 - 145 mmol/L CERNER CH Potassium, pl 4.3 3.3 - 4.9 mmol/L CERNER CH Chloride 106 97 - 110 mmol/L CERNER CH CO2 26 22 - 32 mmol/L CERNER CH Anion gap 9 2 - 15 mmol/L CERNER CH BUN 10 8 - 25 mg/dL CERNER CH Creatinine 0.67 0.60 - 1.10 mg/dL CERNER CH Glucose 89 70 - 199 mg/dL CERNER CH Comment: [...] Calcium 9.5 8.5 - 10.3 mg/dL CERNER CH Bilirubin, total 0.5 0.1 - 1.2 mg/dL [facility]ERN[facility] CH Protein, pl 7.9 6.5 - 8.5 g/dL [facility]ER CH Albumin 4.2 3.5 - 5.0 g/dL CERNER CH Alk phos 86 40 - 130 Units/L CERNER CH ALT 16 7 - 45 Units/L CERNER CH AST 21 10 - 45 Units/L CERNER CH Blood 09/30/2022 10:5 9 AM CDT 09/30/2022 3:05 PM CDT Zoe Mesa MD LAB BLOOD ORDERABLES F inal Result Performing Organization Address [facility] [place] [address] [address] [place] [address] * (ABNORMAL) Urinalysis reflex to microscopic and [...] to microscopic UA will be performed. CERNER CH Urine, clean voided 09/30/2022 10:59 AM CDT [...] tendency for uric acid stone formation. Source: [facility] [employer]. Last revised 07-27-2017 Zoe Mesa MD LAB MICROBIOLOGY - GEN ERAL ORDERABLES Final Result Performing Organization Address [facility] Co de Phone Number LUISA CAREY [address] [place] [address] documented in this encounter Visit Diagnoses Diagnosis Annual visit for general adult medical examination with abnormal findings- Primary Acquired hypothyroidism Unspecified hypothyroidism Anxiety and depression Iron deficiency anemia due to chronic blood loss Iron deficiency anemia secondary to blood loss (chronic) Elevated fasting glucose Impaired fasting glucose Screening for lipid disorders Other microscopic hematuria Class 2 obesity due to excess calories without serious comorbidity with body mass index (BMI) of 39.0 to 39.9 in adult Skin lesion Unspecified disorder of skin and subcutaneous tissue Annual visit for general adult medical examination with abnormal findings Iron deficiency anemia due to chronic blood loss Iron deficiency anemia secondary to blood loss (chronic) Acquired hypothyroidism Unspecified hypothyroidism Screening for lipid disorders Elevated fasting glucose Impaired fasting glucose Other microscopic hematuria Other microscopic hematuria documented in this encounter Discontinued Medications Medication Sig Discontinue Reason Start Date End Da te copper (PARAGARD) 380 square mm IUD 1 each by intrauterine route once Therapy completed 07/17/2015 09/30/2022 documented as of this encounter Care Teams Sdv Pilot/Navigator/Dds Operator Relationship Specialty Start Date End Date Zoe Mesa MD PCP - General Family Practice 03/22/22 Shasta Stone MD Obstetrics and Gynecology 02/10/2202/15 documented as of this encounter
--- OUTSIDE RECORDS SUMMARY | 2024-07-18 00:07 | XMS_ITS | Encounter Summary ---
Author Organization 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 Not on file Not on file documented as of this encounter Medications at Time of Discharge famotidine (PEPCID) 20 mg tabletIndications:Ga stroesophageal reflux disease without esophagitis Take 1 tablet (20 mg total) by mouth 2 (two) times a day as needed for heartburn 60 tablet 3 11/04/2022 3 levothyroxine (SYNTHROID) 112 mcg tabletIndications:Ac quired hypothyroidism Take 1 tablet (112 mcg total) by mouth daily before breakfast 30 tablet 5 11/04/2022 3 documented as of this encounter Discharge Disposition Disposition Code Departure Means Destination Discharge to home or self care documented in this encounter Plan of Treatment Not on file documented as of this encounter Procedures Procedure Name Priority Date/Time Associated Diagnosis Comments TSH Routine 11/04/2022 11:42 AM CDT Acquired hypothyroidism documented in this encounter Results * (ABNORMAL) TSH (11/04/2022 11:42 AM CDT) Thyroid Stimulating Hormone 5.69(H) 0.30 - 4.20 mcIUnit/mL LUISA CAREY Blood 11/04/2022 11:4 2 AM CDT 11/04/2022 2:51 PM CDT us Zoe Garcia MD LAB BLOOD ORDERABLES F inal Result LUISA [address] Department [place] [address] documented in this encounter Visit Diagnoses Diagnosis Acquired hypothyroidism Unspecified hypothyroidism documented in this encounter Care Teams Manager Managing Relationship Specialty Start Date End Date Zoe Garcia MD PCP - General Family Practice 03/22/22 Shasta Stone MD Obstetrics and Gynecology 02/10/22 8/2 08/09 documented as of this encounter
== END 2024-07-10 23:10 | disposition home or self-care (01) ==
PROVIDERS: Emergency Provider Emergency Medicine
DX: R11.2 Nausea with vomiting, unspecified (principal); R19.7 Diarrhea, unspecified; E86.9 Volume depletion, unspecified; E03.9 Hypothyroidism, unspecified
CPT/HCPCS: 36415; 74019; 80053; 83605; 83690; 83735; 84703; 85027; 87493; 96361; 96374; 96376; 99284; J2405; J7030